=== PATIENT | female | born 1950 | race Caucasian/White ===

== ENCOUNTER 2016-11-06 21:06 | Emergency (ER) | payer MEDICARE ==
[~2016-11-06 21:06] MED LIST: ISOVUE-370 76%-LOCM 1 ML ONE
[2016-11-06 22:07] LABS: Hematocrit 34.4 % (36.0-47.0); Mean Platelet Volume 6.9 fL (7.4-10.4); Red Blood Cell (RBC) Count 3.63 mill/uL (4.20-5.40); White Blood Cell (WBC) Count 6.4 thou/uL (4.8-10.8)
[2016-11-06 22:23] LABS: Band 1 % (5-11); Neutrophil 64 % (42-75)
--- NOTE | 2016-11-06 22:23 | CT ---
CT OF THE BRAIN WITHOUT CONTRAST: 11/06/16 COMPARISON: 08/04/13. HISTORY: Altered mental status and fall. Dizziness. TECHNIQUE: Multiple contiguous axial images were obtained in a CT of the brain without contrast. FINDINGS: The brain is normal in morphology and attenuation without focal lesions or confluent areas of infarc t. There is no evidence of hydrocephalus, intracranial hemorrhage or extra-axial fluid collection. The calvarium and overlying soft tissues are unremarkable. The visualized paranasal sinuses and mast oid air cells are well aerated. IMPRESSION: No evidence of acute intracranial abnormality. POS: [facility]
[2016-11-06 22:31] LABS: ALT (SGPT) 19 U/L (8-55); AST (SGOT) 24 U/L (5-34); Alkaline Phosphatase 74 U/L (40-150); Anion Gap 12 mmol/L (10-20); BUN (Urea Nitrogen) 15 mg/dL (9.8-20.1); Bilirubin, Total 0.2 mg/dL (0.2-1.2); Calc. Creatinine Clearance 0 mL/min (70-130); Calcium 9.6 mg/dL (7.8-10.44); Carbon Dioxide 25 mmol/L (23-31); Chloride 97 mmol/L (98-107); Estimated GFR-MDRD 60; Globulin 3.1 g/dL (2.4-3.5); Protein, Total 7.3 g/dL (6.0-8.3)
[2016-11-06 22:35] LABS: Troponin I Less than 0.010 ng/mL (< 0.028)
[2016-11-06 23:00] LABS: Bilirubin Negative (Negative); Blood, Urine Small (Negative); Glucose, Urine (Dipstick) Negative (Negative); Ketone, Urine Negative (Negative); Nitrite Negative (Negative); Protein, Urine (Dipstick) 30 mg/dL (Neg-Trace); Urobilinogen 0.2 mg/dL (0.2-1.0)
[2016-11-06 23:31] LABS: Bacteria/HPF Rare-Few HPF (None Seen); Hyaline Casts/LPF 0-3 HYALINE CAST LPF (0-3 Hyaline); Squamous Epithelial 0-3 HPF (0-3); WBC/HPF 0-3 HPF (0-3)
--- NOTE | 2016-11-06 23:32 | CT ---
CTA OF THE CHEST WITH CONTRAST: 11/06/16 COMPARISON: None. HISTORY: Hypoxia. TECHNIQUE: Multiple contiguous axial images were obtained in a CTA of the chest with contrast for pulmonary emb olism protocol. 3D oblique MIP reformats and direct coronal reformats were performed. FINDINGS: The pulmonary arteries are well opacified without filling defects to suggest pulmonary emboli. The h eart is normal in size. No hilar or mediastinal lymphadenopathy are seen. Atelectasis is seen in the lung bases. No suspicious pulmonary nodules are seen. Emphysema is seen i n the lung apices. No pneumothorax or pleural effusion are seen. Degenerative changes are seen in the spine. There are benign appearing calcifications in the spleen. The other visualized subdiaphragmatic structures are unremarkable. The patient has bilateral breast implants. IMPRESSION: 1. No evidence of pulmonary thromboembolism. 2. Emphysema. POS: [facility]
== END 2016-11-07 00:42 | disposition home or self-care (01) ==
LOC: ERS 21:06
DX: R41.82 Altered mental status, unspecified (principal); I10 Essential (primary) hypertension; F41.9 Anxiety disorder, unspecified; F32.9 Major depressive disorder, single episode, unspecified; F17.210 Nicotine dependence, cigarettes, uncomplicated; W19.XXXA Unspecified fall, initial encounter
CPT/HCPCS: 36415; 36416; 70450; 71275; 80053; 80307; 81003; 81015; 82553; 84484; 85025; 85379; 93005; 94760; 96360

== ENCOUNTER 2017-02-21 14:49 | Outpatient (CLI) | payer MEDICARE | END 2017-02-21 14:50 | disposition home or self-care (01) | LOC: BICMAMMO 14:49 | PROVIDERS: ATTEND Internal Medicine | DX: N64.59 Other signs and symptoms in breast (principal); Z98.82 Breast implant status; Z80.3 Family history of malignant neoplasm of breast | CPT/HCPCS: G0204; G0279; 77066 ==

== ENCOUNTER 2018-03-24 14:35 | Outpatient (CLI) | payer MEDICARE | END 2018-03-24 14:36 | disposition home or self-care (01) | LOC: BICMAMMO 14:35 | PROVIDERS: ATTEND Family Medicine | DX: Z12.31 Encounter for screening mammogram for malignant neoplasm of breast (principal); Z80.3 Family history of malignant neoplasm of breast | CPT/HCPCS: 77063; 77067 ==

== ENCOUNTER 2019-06-23 13:06 | Outpatient (CLI) | payer MEDICARE ==
--- NOTE | 2019-06-23 14:10 | BD ---
Exam: DEXA Bone Density 06/23/19 HISTORY: Postmenopausal. Lumbar Spine: BMD (g/cm2) T-SCORE L1 0.787 -1.8 L2 0.953 -0.7 L3 0.943 -1.3 L4 0.861 -1.8 L1-L4 0.888 -1.4 Left Femoral Neck: 0.625 -2.0 Total Femur: 0.835 -0.9 Impression: Osteopenia of the lumbar spine and left femoral neck. POS: [facility]
--- NOTE | 2019-06-23 15:19 | MMO ---
Bilateral MAMMO Bilat Screen DDI+ADIN. CLINICAL HISTORY: Patient is 68 years old and is seen for screening. The patient has no personal history of cancer. The patient has a history of bilateral Implants in May, - benign. VIEWS: The views performed were: bilateral craniocaudal with tomosynthesis and bilateral mediolateral oblique with tomosynthesis. FILMS COMPARED: The present examination has been compared to prior imaging studies performed at [facility] on 12/07/2014, 12/01/2015, 02/21/2017 and 03/24/2018. This study has been interpreted with the assistance of computer-aided detection. MAMMOGRAM FINDINGS: The breasts are extremely dense, which may lower the sensitivity of mammography. There are no suspicious masses, suspicious calcifications, or new areas of architectural distortion. Bilateral implants are stable. IMPRESSION: THERE IS NO MAMMOGRAPHIC EVIDENCE OF MALIGNANCY. A ROUTINE FOLLOW-UP MAMMOGRAM IN 1 YEAR IS RECOMMENDED. THE RESULTS OF THIS EXAM WERE SENT TO THE PATIENT. ACR BI-RADS Category 1 - Negative MAMMOGRAPHY NOTE: 1. A negative mammogram report should not delay a biopsy if a dominant of clinically suspicious mass is present. 2. Approximately 10% to 15% of breast cancers are not detected by mammography. 3. Adenosis and dense breasts may obscure an underlying neoplasm. Reported by: GREGG MOORE MD Electonically Signed: [id number]
== END 2019-06-23 13:07 | disposition home or self-care (01) ==
LOC: BICMAMMO 13:06
PROVIDERS: ATTEND Family Medicine
DX: Z12.31 Encounter for screening mammogram for malignant neoplasm of breast (principal); Z13.820 Encounter for screening for osteoporosis; M85.89 Other specified disorders of bone density and structure, multiple sites; Z98.82 Breast implant status
CPT/HCPCS: 77063; 77067; 77080

== ENCOUNTER 2019-10-22 12:42 | Emergency (ER) | payer MEDICARE ==
[2019-10-22] MEDS ORDERED: Ondansetron PF 4 MG/2 ML Vial ONE (13:00)
[2019-10-22] MEDS ORDERED: Adacel (T-DAP) 0.5 ML SYRINGE ONE (13:00)
[2019-10-22] MEDS ORDERED: Acetaminophen 500 MG TAB ONE (13:00)
[2019-10-22 13:25] LABS: Bacteria/HPF None Seen HPF (None Seen); Bilirubin Negative (Negative); Blood, Urine 2+ (Negative); Clarity Clear (Clear); Glucose, Urine (Dipstick) Normal (Negative); Ketone, Urine Negative (Negative); Leukocyte Negative Leu/uL (Negative); Nitrite Negative (Negative); Protein, Urine (Dipstick) Negative (Neg-Trace); Specific Gravity, Urine 1.008 (1.002-1.036); Squamous Epithelial 0-3 HPF (0-3); Urobilinogen Normal mg/dL (Less than 2); WBC/HPF 0-3 HPF (0-3)
[2019-10-22 13:47] LABS: #Basophils 0.1 thou/uL (0.0-0.2); #Lymphocytes 1.4 thou/uL (1.20-3.40); #Monocytes 0.4 thou/uL (0.11-0.59); #Neutrophils 2.4 thou/uL (1.40-6.50); %Basophils 1.2 % (0.0-1.0); %Eosinophils 0.2 % (0.0-10.0); %Lymphocytes 32.5 % (21.0-51.0); %Neutrophils 56.2 % (42.0-75.0); Hemoglobin 12.7 g/dL (12.0-16.0); Mean Corpuscular HGB CONC 34.7 g/dL (32.0-36.0); Mean Corpuscular Hemoglobin 33.7 pg (27.0-31.0); Mean Platelet Volume 7.7 fL (7.4-10.4); Platelet Count 283 thou/uL (130-400); RBC Distribution Width 12.9 % (11.5-14.5); Red Blood Cell (RBC) Count 3.76 mill/uL (4.20-5.40); White Blood Cell (WBC) Count 4.3 thou/uL (4.8-10.8)
--- NOTE | 2019-10-22 14:04 | CT ---
CT BRAIN WITHOUT CONTRAST: Date: 10/22/2019 HISTORY: Fall with frontal laceration, headache, probable syncope. COMPARISON: 11/06/2016. FINDINGS: No evidence of acute infarct, hemorrhage, midline shift, or abnormal extra-axial fluid collections ar e seen. The ventricular size is stable and the basilar cisterns are patent. The bony calvarium is int act. The visualized paranasal sinuses and mastoid air cells are well aerated. IMPRESSION: No CT evidence of acute intracranial process. POS: [facility]
[2019-10-22 14:08] LABS: ALT (SGPT) 30 U/L (8-55); AST (SGOT) 40 U/L (5-34); Albumin 4.5 g/dL (3.4-4.8); Alkaline Phosphatase 71 U/L (40-110); Anion Gap 12 mmol/L (10-20); BUN (Urea Nitrogen) 14 mg/dL (9.8-20.1); Bilirubin, Total 0.6 mg/dL (0.2-1.2); CK (CPK) 404 U/L (29-168); Calc. Creatinine Clearance 0 mL/min (70-130); Calcium 9.3 mg/dL (7.8-10.44); Carbon Dioxide 24 mmol/L (23-31); Chloride 99 mmol/L (98-107); Estimated GFR-MDRD 73; Glucose 97 mg/dL (80-115); Magnesium 2.1 mg/dL (1.6-2.6); Potassium 4.2 mmol/L (3.5-5.1); Protein, Total 7.5 g/dL (6.0-8.3); Sodium 131 mmol/L (136-145)
== END 2019-10-22 14:48 ==
LOC: ERS 12:42
DX: S01.81XA Laceration without foreign body of other part of head, initial encounter (principal); I10 Essential (primary) hypertension; F41.9 Anxiety disorder, unspecified; F32.9 Major depressive disorder, single episode, unspecified; F17.210 Nicotine dependence, cigarettes, uncomplicated; Z79.899 Other long term (current) drug therapy; W19.XXXA Unspecified fall, initial encounter; Y92.003 Bedroom of unspecified non-institutional (private) residence as the place of occurrence of the external cause
CPT/HCPCS: 12011; 36415; 70450; 80053; 81003; 81015; 82550; 83735; 84484; 85025; 90471; 90715; 93005; 96374; J2405

== ENCOUNTER 2019-11-15 19:54 | Emergency (ER) | payer MEDICARE ==
[2019-11-15] MEDS ORDERED: Lidocaine 4% Cream 5 GM TUBE w/ Tegaderm ONE (20:26)
== END 2019-11-15 21:15 | disposition left against medical advice (07) ==
LOC: ERS 19:54
DX: S01.01XA Laceration without foreign body of scalp, initial encounter (principal); I10 Essential (primary) hypertension; F41.9 Anxiety disorder, unspecified; F32.9 Major depressive disorder, single episode, unspecified; Z79.899 Other long term (current) drug therapy; W01.0XXA Fall on same level from slipping, tripping and stumbling without subsequent striking against object, initial encounter
CPT/HCPCS: 99282

== ENCOUNTER 2020-02-09 00:27 | Observation (INO) | payer MEDICARE ==
[2020-02-09] MEDS ORDERED: Morphine 4 MG/ML VIAL ONE (01:06)
[2020-02-09] MEDS ORDERED: Ketorolac Tromethamine 30 MG/ML VIAL ONE (01:07)
[2020-02-09] MEDS ORDERED: Ondansetron PF 4 MG/2 ML Vial ONE (01:07)
[2020-02-09 01:14] LABS: Hemoglobin 11.8 g/dL (12.0-16.0); Mean Corpuscular HGB CONC 34.8 g/dL (32.0-36.0); Mean Corpuscular Hemoglobin 34.2 pg (27.0-31.0); Mean Corpuscular Volume 98.2 fL (78.0-98.0); Mean Platelet Volume 6.9 fL (7.4-10.4); Platelet Count 340 thou/uL (130-400); RBC Distribution Width 12.7 % (11.5-14.5); Red Blood Cell (RBC) Count 3.46 mill/uL (4.20-5.40); White Blood Cell (WBC) Count 3.9 thou/uL (4.8-10.8)
[2020-02-09 01:23] LABS: ALT (SGPT) 22 U/L (8-55); AST (SGOT) 48 U/L (5-34); Albumin 4.5 g/dL (3.4-4.8); Alkaline Phosphatase 67 U/L (40-110); Anion Gap 20 mmol/L (10-20); BUN (Urea Nitrogen) 13 mg/dL (9.8-20.1); Bilirubin, Total 0.4 mg/dL (0.2-1.2); Calc. Creatinine Clearance 0 mL/min (70-130); Calcium 9.6 mg/dL (7.8-10.44); Carbon Dioxide 21 mmol/L (23-31); Chloride 88 mmol/L (98-107); Globulin 2.8 g/dL (2.4-3.5); Glucose 93 mg/dL (80-115); Potassium 4.9 mmol/L (3.5-5.1); Protein, Total 7.3 g/dL (6.0-8.3); Sodium 124 mmol/L (136-145)
[2020-02-09 01:26] LABS: Alcohol 156 mg/dL (Less than 10); Salicylate Less than 8.0 mg/dL (15.0-30.0)
[2020-02-09] MEDS ORDERED: Magnesium 2 GM/50 ML BAG (IN WATER) ONE (01:39)
[2020-02-09 01:48] LABS: Bacteria/HPF None Seen HPF (None Seen); Bilirubin Negative (Negative); Blood, Urine 1+ (Negative); Clarity Clear (Clear); Glucose, Urine (Dipstick) Normal (Negative); Ketone, Urine Negative (Negative); Leukocyte Negative Leu/uL (Negative); Nitrite Negative (Negative); Protein, Urine (Dipstick) Negative (Neg-Trace); RBC/HPF 0-3 HPF (0-3); Specific Gravity, Urine 1.005 (1.002-1.036); Squamous Epithelial 0-3 HPF (0-3); Urobilinogen Normal mg/dL (Less than 2); WBC/HPF 0-3 HPF (0-3)
[2020-02-09 01:48] LABS: Band 5 % (5-11); Lymphocytes 50 % (21-51); MDiff Complete? YES; Monocytes 14 % (0-10); Neutrophil 29 % (42-75); Reactive Lymphocytes 2 % (0-10)
[2020-02-09] MEDS ORDERED: Albuterol 200 PUFF (6.7GM INHALER) ONE ×2 (01:48→02:05)
[2020-02-09] MEDS ORDERED: methylPREDNISolone Sod Succ/PF 125 MG/2 ML VIAL ONE ×2 (01:48→02:01)
[2020-02-09 01:59] LABS: Cocaine Metabolite Screen Not Detected (NotDetected); Medtox Reader # READER 1; Methamphetamine Not Detected (NotDetected); Phencyclidine (PCP) Not Detected (NotDetected); THC/Cannabinoid Screen Not Detected (NotDetected)
[2020-02-09 02:00] LABS: Amphetamine Not Detected (NotDetected); Barbiturates Screen Not Detected (NotDetected); Benzodiazepine Screen Not Detected (NotDetected); Medtox Control Line Valid? VALID (VALID); Methadone Not Detected (NotDetected); Opiate Screen Detected (NotDetected); Oxycodone Screen Not Detected (NotDetected); Tricyclic Screen Not Detected (NotDetected)
--- NOTE | 2020-02-09 03:32 | PDOC.HHP ---
Hospitalist HPI - History of Present Illness Right rib pain History of Present Illness: This is a 69-year-old female with a history of Hypertension, anxiety and depression who presents with pain on the right lateral rib cage for the past 2 weeks. Patient notes that she fell from on top of a counter and hit her right side about 2 weeks ago. Pain has gradually become worse and thus today she activated EMS and she was brought in for further evaluation. She notes intermittent cough which worsens the pain in the right side. She however denies any sputum production, fever or any other symptoms. She denies any abdominal pain diarrhea constipation dysuria or frequency. On arrival her blood pressure was 164/88, pulse 80, respiratory 20, saturation 91 on room air. CBC showed WBC of 3.9, hemoglobin 11.8, platelet 340, sodium was low at 124, urine drug screen noted opioid and alcohol level was elevated at 56. Acetaminophen was also slightly elevated at 38. Troponin was negative. 1/10 rib fracture noted on the right on chest x-ray She was given Levaquin, Solu-Medrol, ketorolac and morphine in the ED. also received a liter of normal saline Pain medication she said significantly reduced her pain from about a 9 at presentation to 9 2 at the time of my evaluation. Hospitalist ROS - Review of Systems Constitutional: denies: fever, chills, sweats Respiratory: reports: cough, dry, pleuritic pain. denies: shortness of breath, hemoptysis, SOB with excertion Cardiovascular: reports: chest pain. denies: palpitations, orthopnea Gastrointestinal: denies: nausea, vomiting, abdominal pain, diarrhea Genitourinary: denies: dysuria, frequency, incontinence, hematuria Musculoskeletal: reports: other (Right lateral rib cage pain). denies: neck pain, shoulder pain Skin: denies: rash, lesions, [place], bruising Neurological: denies: weakness, numbness, incoordination, change in speech All other systems reviewed; all pertinent +/- noted in HPI/Subj - Medication Medications: Medications: Currently refer to ambulatory [facility]. Allergies: Cefadroxil hydrate, cephalosporins Hospitalist History - Past Medical History Other Medical History: Hypertension, anxiety, depression - Past Surgical History Other Surgical History: Right hip replacements, tonsillectomy - Family History Family History: reports: diabetes mellitus - Social History Smoking Status: Current every day smoker Alcohol: reports: Occassional Drugs: reports: none Living Situation: Alone - Exam General Appearance: awake alert General - other findings: She is thin looking. Eye: PERRL, anicteric sclera ENT: normocephalic atraumatic, no oropharyngeal lesions Neck: supple, symmetric, no JVD, no thyromegaly Heart: RRR, no murmur, no gallops, no rubs Respiratory: CTAB, no wheezes, no rales, no ronchi Respiratory - other findings: No rib pain on right chest palpation. Gastrointestinal: soft, non-tender, non-distended, normal bowel sounds Extremities: no cyanosis, no clubbing, no edema Neurological: cranial nerve grossly intact, no weakness Psychiatric: normal affect, normal behavior, A&O x 3 Hospitalist Results - Labs Result Diagrams: 02/09/20 00:48 02/09/20 00:48 Lab results: WBC 3.9 thou/uL (4.8-10.8) L 02/09/20 00:48 Hgb 11.8 g/dL (12.0-16.0) L 02/09/20 00:48 Hct 33.9 % (36.0-47.0) L 02/09/20 00:48 MCV 98.2 fL (78.0-98.0) H 02/09/20 00:48 Plt Count 340 thou/uL (130-400) 02/09/20 00:48 Band Neuts % (Manual) 5 % (5-11) 02/09/20 00:48 Sodium 124 mmol/L (136-145) L 02/09/20 00:48 Potassium 4.9 mmol/L (3.5-5.1) 02/09/20 00:48 Chloride 88 mmol/L (98-107) L 02/09/20 00:48 Carbon Dioxide 21 mmol/L (23-31) L 02/09/20 00:48 BUN 13 mg/dL (9.8-20.1) 02/09/20 00:48 Creatinine 0.77 mg/dL (0.6-1.1) 02/09/20 00:48 Glucose 93 mg/dL (80-115) 02/09/20 00:48 Calcium 9.6 mg/dL (7.8-10.44) 02/09/20 00:48 Total Bilirubin 0.4 mg/dL (0.2-1.2) 02/09/20 00:48 AST 48 U/L (5-34) H 02/09/20 00:48 ALT 22 U/L (8-55) 02/09/20 00:48 Alkaline Phosphatase 67 U/L (40-110) 02/09/20 00:48 Troponin I Less than 0.010 ng/mL (< 0.028) 02/09/20 00:48 Serum Total Protein 7.3 g/dL (6.0-8.3) 02/09/20 00:48 Albumin 4.5 g/dL (3.4-4.8) 02/09/20 00:48 Urine Ketones Negative mg/dL (Negative) 02/09/20 01:43 Urine Blood 1+ (Negative) A 02/09/20 01:43 Urine Nitrite Negative (Negative) 02/09/20 01:43 Ur Leukocyte Esterase Negative Edin/uL (Negative) 02/09/20 01:43 Urine RBC 0-3 HPF (0-3) 02/09/20 01:43 Urine WBC 0-3 HPF (0-3) 02/09/20 01:43 Ur Squamous Epith Cells 0-3 HPF (0-3) 02/09/20 01:43 Urine Bacteria None Seen HPF (None Seen) 02/09/20 01:43 Hospitalist H&P A/P - Plan Plan: This is a 69-year-old female patient history of hypertension and anxiety on account of right lateral chest wall pain on account of a fall 2 weeks ago. She has a right-sided rib fracture. Right rib fracture Secondary to fall and trauma Continue on pain relief Incentive spirometry Conservative management. Hypertension Continue home blood pressure medications. Alcohol abuse Blood alcohol level was 156 at presentation She appeared slow by the time I evaluated Counseled on excessive drinking Hyponatremia This is moderate sodium at 124 We will check urine osmolality and sodium Possibilities include the episode gera, SIADH Given long history of smoking she may need screening for lung cancer If she has SIADH and urine osmolality to start fluid restriction Monitor BMP Consider nephrology consult in a.m. Leukocytosis This is mild No indication of infection along 7 urine We will hold Levaquin for now. Monitor CBC Normocytic anemia Check folic acid and B12 CODE STATUSfull code VT prophylaxisSCD
[2020-02-09 03:43] LABS: SARS-CoV-2 NAA Rapid Test Not Detected (NotDetected)
[2020-02-09 05:17] VITALS: BMI 17.4
[2020-02-09] MEDS ORDERED: hydrALAZINE 20 MG/ML VIAL SLOW IVP PRN ×2 (06:52→16:31)
[2020-02-09] MEDS ORDERED: PROVENTIL INHALER 6.7 G (200 INHALATIONS) INH PRN (07:31)
[2020-02-09] MEDS ORDERED: Ondansetron PF 4 MG/2 ML Vial IVP PRN ×2 (07:32→16:31)
[2020-02-09] MEDS ORDERED: Ondansetron ODT 4 MG TAB PO PRN (07:32)
[2020-02-09] MEDS ORDERED: Morphine 2 MG/ML VIAL SLOW IVP PRN (07:32)
[2020-02-09] MEDS ORDERED: Lactated Ringer's 1,000 ML IV SCH (07:45)
[2020-02-09 08:09] LABS: Anion Gap 17 mmol/L (10-20); BUN (Urea Nitrogen) 11 mg/dL (9.8-20.1); Calc. Creatinine Clearance 51 mL/min (70-130); Calcium 8.4 mg/dL (7.8-10.44); Carbon Dioxide 21 mmol/L (23-31); Chloride 97 mmol/L (98-107); Glucose 112 mg/dL (80-115); Potassium 4.8 mmol/L (3.5-5.1); Sodium 130 mmol/L (136-145)
--- NOTE | 2020-02-09 08:40 | RAD ---
PA AND LATERAL CHEST: HISTORY: Patient having rib pain. Fell a couple of weeks ago. FINDINGS: Heart size within normal limits. There are artherosclerotic changes of the aorta. The lungs are peng ar of any infiltrates. The lungs appear hyperexpanded. A suggestion of some deformity to the right rib cage. Right rib films would be recommended for better assessment. IMPRESSION: Questionable right-sided rib fractures. I would suggest rib films for better assessment. No pneumot horax or pleural effusion identified. POS: [facility]
[2020-02-09] MEDS: Gabapentin 300 MG CAP PO SCH ×2 (08:50→21:24)
[2020-02-09] MEDS: Lisinopril 20 MG TAB PO SCH (08:50)
[2020-02-09] MEDS: FLUoxetine HCl 20 MG CAP PO SCH (08:53)
[2020-02-09] MEDS ORDERED: Lisinopril 5 MG TAB PO SCH (09:00)
[2020-02-09] MEDS ORDERED: Aspirin 81 mg Enteric Coated Tablet PO SCH (10:15)
[2020-02-09] MEDS: Nicotine 21 MG PATCH TD SCH (11:32)
[2020-02-09] MEDS ORDERED: traMADol HCl 50 MG TAB PO PRN (12:22)
[2020-02-09] MEDS ORDERED: traMADol HCl 50 MG TAB PO SCH (12:30)
[2020-02-09] MEDS: Lidocaine 5% Patch TD SCH (13:25)
--- NOTE | 2020-02-09 14:45 | CON ---
DATE OF CONSULTATION: 02/09/2020 SERVICE: Nephrology. REASON FOR CONSULTATION: Hyponatremia. REQUESTING PHYSICIAN: Med Delcid MD HISTORY OF PRESENT ILLNESS: A 69-year-old female with known history of COPD, hypertension, who presents to the hospital with worsening right-sided lateral chest pain since about 2 weeks after she fell from the top of the counter and hit the right side of the body. Pain reportedly got worse, necessitating presentation to the ER. There was no associated nausea or vomiting, gait instability, headache, leg swelling, or abdominal pain. The patient was found to have sodium of 124, necessitating Nephrology consult. Review of medical records showed the patient has chronic hyponatremia ranging from 129 to 133 in the last several years. She admitted to alcohol use on a daily basis. Nephrology consult was requested due to hyponatremia. PAST MEDICAL HISTORY: 1. Hypertension. 2. Anxiety and depression, on Prozac. 3. COPD. 4. Chronic tobacco abuse. PAST SURGICAL HISTORY: 1. Right hip replacement. 2. Tonsillectomy. FAMILY HISTORY: Significant for diabetes mellitus in parents. SOCIAL HISTORY: Patient lives alone. She is an everyday smoker and pretty much uses alcohol every day. ALLERGIES: PATIENT REPORTS ALLERGIC REACTION TO THE FOLLOWING. CEFADROXIL. CEPHALOSPORINS. MEDICATIONS: Prior to hospital medications are as follows: 1. Aspirin 81 mg p.o. daily. 2. Gabapentin 300 mg p.o. b.i.d. 3. Lisinopril 5 mg p.o. daily. 4. Prozac 20 mg p.o. daily. 5. Trazodone 100 mg p.o. daily at bedtime. REVIEW OF SYSTEMS: 12-point review of system performed was negative other than pertinent positives and negatives included in the history of present illness. PHYSICAL EXAMINATION: VITAL SIGNS: Temperature 97.5, pulse 90, respiratory rate 20, SpO2 of 92% on room air, blood pressure is 194/97. GENERAL: Thin elderly female, in no obvious distress. Afebrile. Anicteric. Acyanotic. HEENT: Normocephalic, atraumatic. Oral mucosa is moist. NECK: Supple with no JVD. CARDIOVASCULAR: Regular rhythm and rate with normal heart sounds one and two. RESPIRATORY: Fair air entry bilaterally with some transmitted breath sounds. No obvious rhonchi or use of accessory muscles. GI: Flat, soft, nontender, nondistended with normal bowel sounds. EXTREMITIES: Grossly normal looking atraumatic with no edema or erythema. MUSCULOSKELETAL: Right lateral chest tenderness noted. FILE CLERK DATA ENTRY: Conscious, alert, oriented x3 with appropriate mental status. Cranial nerves II through XII are grossly intact. DIAGNOSTIC DATA: CBC showed WBC count of 3.9, hemoglobin of 11.8, MCV of 98.2, platelets of 340. Chemistry on presentation last night showed sodium 124, potassium 4.9, chloride 88, CO2 of 21, BUN 13, creatinine 0.77, glucose 93, calcium 9.6, total bilirubin 0.4, AST 48, ALT 22, alkaline phosphatase 67, total protein 7.3, albumin 4.5. Repeat BMP earlier this morning showed sodium 130, potassium 4.8, chloride 97, CO2 of 21, BUN 11, creatinine 0.68. Review of medical record showed that sodium ranges from 126 to 138 since 2011. Urinalysis showed clear colorless urine with pH of 5.0, specific gravity of 1.005. Protein is negative, glucose normal, ketone negative, nitrite negative, bilirubin negative, leukocyte esterase is negative. Serum osmolality is 282, while urine osmolality is 141 with urine sodium less than 20. ASSESSMENT: 1. Hyponatremia: Most likely due to poor solute intake. Patient also admitted to eating two times using mostly tea and toast meal and also admitted to drinking alcohol regularly. Patient has chronic obstructive pulmonary disease, which may lead to syndrome of inappropriate antidiuretic hormone secretion. Urine osmolality and plasma osmolality are more consistent with that of poor solute intake. 2. Hypertension: Control is suboptimal with systolic ranging from 170 to 190 this admission. 3. Right 10th rib fracture, on analgesics. PLAN: [place] solute intake advised. We will discontinue IV fluid therapy. Patient advised to cut down free water intake as well as alcohol. Increase Lisinopril to 20 mg daily to get better BP control We will recheck electrolytes in the morning. Further treatment to follow depending on hospital course. Job ID: [id number] [facility]
--- NOTE | 2020-02-09 15:19 | RAD ---
EXAM: XR Chest 1 View Portable PROVIDED CLINICAL HISTORY: Cough and vomiting COMPARISON: 02/09/2020 1255 AM FINDINGS: Cardiac and mediastinal silhouette is unchanged in appearance. The lungs remain hyperinflated. There is a minimally displaced right lateral seventh rib fracture. Additional rib fractures may be present, less well visualized, involving the more inferior lateral ribs. Blunting of the right costop hrenic angle could reflect pleural fluid. There is no evidence for pneumothorax. No focal consolidation is evident. IMPRESSION: Right-sided rib fracture/fractures with possible right pleural fluid.
[2020-02-09 15:56] LABS: #Lymphocytes 0.3 thou/uL (1.20-3.40); #Monocytes 0.2 thou/uL (0.11-0.59); #Neutrophils 2.1 thou/uL (1.40-6.50); %Eosinophils 0.1 % (0.0-10.0); %Lymphocytes 12.5 % (21.0-51.0); %Monocytes 5.8 % (0.0-10.0); %Neutrophils 81.6 % (42.0-75.0); Hemoglobin 11.6 g/dL (12.0-16.0); Mean Corpuscular HGB CONC 34.1 g/dL (32.0-36.0); Mean Corpuscular Hemoglobin 33.3 pg (27.0-31.0); Mean Corpuscular Volume 97.8 fL (78.0-98.0); Mean Platelet Volume 7.2 fL (7.4-10.4); Platelet Count 327 thou/uL (130-400); RBC Distribution Width 12.7 % (11.5-14.5); Red Blood Cell (RBC) Count 3.48 mill/uL (4.20-5.40); White Blood Cell (WBC) Count 2.6 thou/uL (4.8-10.8)
[2020-02-09] MEDS ORDERED: Ketorolac Tromethamine 30 MG/ML VIAL IVP PRN (16:29)
[2020-02-09] MEDS ORDERED: Promethazine HCl 25 MG/ML VIAL IM/IV PRN (16:31)
[2020-02-09] MEDS ORDERED: Ketorolac Tromethamine 30 MG/ML VIAL IVP SCH (17:00)
[2020-02-09] MEDS ORDERED: Promethazine HCl 25 MG in Sodium Chloride 0.9% 50 ML IVPB PRN (19:03)
[2020-02-09] MEDS ORDERED: traZODone HCl 50 MG TAB PO SCH (21:00)
[2020-02-09] MEDS ORDERED: Non-Formulary Item 1 EACH (Trazodone Hcl [Trazodone Hcl] 100 MG Tablet) PO SCH (21:00)
[2020-02-09] MEDS ORDERED: Lidocaine Patch Removal 1 EACH TOP SCH (23:59)
[2020-02-10 06:41] LABS: Hemoglobin 10.7 g/dL (12.0-16.0); Mean Corpuscular HGB CONC 33.4 g/dL (32.0-36.0); Mean Corpuscular Hemoglobin 33.1 pg (27.0-31.0); Mean Corpuscular Volume 98.9 fL (78.0-98.0); Mean Platelet Volume 7.3 fL (7.4-10.4); Platelet Count 294 thou/uL (130-400); RBC Distribution Width 12.9 % (11.5-14.5); Red Blood Cell (RBC) Count 3.24 mill/uL (4.20-5.40); White Blood Cell (WBC) Count 5.2 thou/uL (4.8-10.8)
[2020-02-10 06:52] LABS: Anion Gap 13 mmol/L (10-20); BUN (Urea Nitrogen) 15 mg/dL (9.8-20.1); Calc. Creatinine Clearance 44 mL/min (70-130); Calcium 9.1 mg/dL (7.8-10.44); Carbon Dioxide 29 mmol/L (23-31); Chloride 92 mmol/L (98-107); Glucose 109 mg/dL (80-115); Sodium 130 mmol/L (136-145)
[2020-02-10] MEDS: FLUoxetine HCl 20 MG CAP PO SCH (08:47)
[2020-02-10] MEDS: Gabapentin 300 MG CAP PO SCH (08:47)
[2020-02-10] MEDS: Lisinopril 20 MG TAB PO SCH (08:47)
[2020-02-10] MEDS ORDERED: Aspirin 81 mg Enteric Coated Tablet PO SCH (09:00)
[2020-02-10 10:13] LABS: Band 11 % (5-11); Lymphocytes 21 % (21-51); MDiff Complete? YES; Monocytes 18 % (0-10); Neutrophil 49 % (42-75); Platelet Morphology Comment Appears Adequate; Polychromasia SLIGHT = 2-3 cells (100X) (0-2/hpf); Reactive Lymphocytes 1 % (0-10)
--- NOTE | 2020-02-10 10:15 | PDOC.DS.DS ---
Provider - Provider Date of Admission: 02/09/20 02:14 Date of Discharge: 02/10/20 Admitting Provider: Med Delcid MD Consultations: Nephrology (Dr. Castillo) Primary Care Physician: Lul Maria MD Course - Hospital Course Hospital Course: Discharge diagnosis: 1. Rib fracture 2. Alcohol abuse 3. Hyponatremia Hospital course: Patient is a pleasant 69-year-old lady who was admitted to the hospital on February 09, 2020 for right-sided chest pain secondary to rib fracture following a fall. She received pain medications with improvement in her pain. She was also hyponatremic at the time of admission and was seen by nephrology service. Her lisinopril dose was increased to 20 mg daily. She was advised liberal s olute intake. She is being discharged home in a stable condition. Many thanks for allowing me to participate in your patient's care. Please feel free to contact me with any questions or concerns. Discharge destination: Home Resuscitation Status: 02/09/20 03:20 Resuscitation Status Routine Resuscitation Status: FULL: Full Resuscitation - Labs Lab Results: 02/10/20 06:11 02/10/20 06:00 Abnormal Lab Results - Last 48 hrs 02/09/20 00:48: Sodium 124 L, Chloride 88 L, Carbon Dioxide 21 L, AST 48 H 02/09/20 00:48: WBC 3.9 L, RBC 3.46 L, Hgb 11.8 L, Hct 33.9 L, MCV 98.2 H, MCH 34.2 H, MPV 6.9 L, Neutrophils % (Manual) 29 L, Monocytes % (Manual) 14 H 02/09/20 00:48: Salicylates Less than 8.0 L, Acetaminophen 38.0 H, Plasma Alcohol 156 H 02/09/20 01:43: Urine Blood 1+ A 02/09/20 01:43: Urine Opiates Screen Detected H 02/09/20 01:43: Urine Osmolality 141 L 02/09/20 05:41: Vitamin B12 915 H 02/09/20 07:30: Sodium 130 L, Chloride 97 L, Carbon Dioxide 21 L 02/09/20 15:34: WBC 2.6 L, RBC 3.48 L, Hgb 11.6 L, Hct 34.1 L, MCH 33.3 H, MPV 7.2 L, Neutrophils % 81.6 H, Lymphocytes % 12.5 L, Lymphocytes # 0.3 L 02/10/20 06:00: Sodium 130 L, Chloride 92 L 02/10/20 06:11: RBC 3.24 L, Hgb 10.7 L, Hct 32.1 L, MCV 98.9 H, MCH 33.1 H, MPV 7.3 L, Monocytes % (Manual) 18 H - Physical Exam Vitals: Vital Signs (12 hours) Temp Pulse Resp BP Pulse Ox 02/10/20 07:38 98.6 F 78 18 132/61 92 L 02/10/20 04:00 97.5 F L 75 16 111/64 92 L 02/10/20 00:00 97.9 F 77 16 121/66 92 L Weight Weight 92 lb 5.979 oz Physical Exam: The patient was seen and examined on the day of discharge. Patient denies chest pain or shortness of breath. Vital signs are stable. S1 and S2 are heard. Lungs are clear to auscultation bilaterally. Plan - Discharge Medications Prescriptions: Lisinopril 20 mg PO DAILY #30 tablet Thiamine 100 mg PO DAILY #30 tab Home Medications: Medication Instructions Recorded Confirmed Type Aspirin [Ecotrin Low Strength] 81 mg PO DAILY 02/09/20 02/09/20 History FLUoxetine HCl [Prozac] 20 mg PO DAILY 02/09/20 02/09/20 History Gabapentin 300 mg PO BID 02/09/20 02/09/20 History Nicotine [Nicoderm CQ] 21 mg TD Q24H patch 02/09/20 Rx traZODone HCl [Trazodone HCl] 100 mg PO HS 02/09/20 02/09/20 History Lisinopril 20 mg PO DAILY #30 tablet 02/10/20 Rx Thiamine 100 mg PO DAILY #30 tab 02/10/20 Rx Allergies: cefadroxil hydrate [From Duricef] Allergy (Verified 02/09/20 05:01) Cephalosporins Allergy (Verified 02/09/20 05:01) - Discharge Instructions Discharge Instructions:: Check your blood pressure and heart rate 3 times a day and shows readings to your primary care provider. Avoid alcohol use. - Follow up Plan Referrals: Lul Maria MD [Primary Care Provider] - 1 Day Sandhya Castillo MD [Active] - 02/23/20 10:00 am Disposition: HOME
--- NOTE | 2020-02-10 10:37 | PDOC.NEPPN ---
- Subjective Encounter Date: 02/10/20 Subjective: Seen in follow up for Hyponatremia. Still having right lateral chest pain. No fever, nausea or vomiting. - Objective Vital Signs & Weight: Vital Signs (12 hours) Temp Pulse Resp BP Pulse Ox 02/10/20 07:38 98.6 F 78 18 132/61 92 L 02/10/20 04:00 97.5 F L 75 16 111/64 92 L 02/10/20 00:00 97.9 F 77 16 121/66 92 L Weight Weight 92 lb 5.979 oz I&O: 02/09/20 02/10/20 02/11/20 06:59 06:59 06:59 Intake Total 760 Output Total 250 Balance 510 Result Diagrams: 02/10/20 06:11 02/10/20 06:00 Nephrology ROS - Medication Medications: Active Medications Generic Name Dose Route Start Last Admin Trade Name Freq PRN Reason Stop Dose Admin Aspirin 81 mg 02/10/20 09:00 02/10/20 08:47 Aspirin 81 Mg Enteric Coated Tablet PO 81 mg DAILY BARRIE Administration Fluoxetine HCl 20 mg 02/09/20 09:00 02/10/20 08:47 Fluoxetine Hcl 20 Mg Cap PO 20 mg DAILY BARRIE Administration Gabapentin 300 mg 02/09/20 09:00 02/10/20 08:47 Gabapentin 300 Mg Cap PO 300 mg BID BARRIE Administration Hydralazine HCl 10 mg 02/09/20 16:31 02/09/20 17:36 Hydralazine 20 Mg/Ml Vial SLOW IVP 10 mg Q6H PRN Administration SBP Greater Than 170 Promethazine HCl 25 mg/ Sodium 51 mls @ 204 mls/hr 02/09/20 19:03 02/09/20 21:03 Chloride IVPB 51 mls Q6H PRN Administration Nausea Ketorolac Tromethamine 15 mg 02/09/20 16:29 02/10/20 06:35 Ketorolac Tromethamine 30 Mg/Ml Vial IVP 02/14/20 16:30 15 mg Q8H PRN Administration Severe Pain (7-10) Lidocaine 1 patch 02/09/20 12:00 02/09/20 13:25 Lidocaine 5% Patch TD Not Given Q24HR BARRIE Lisinopril 20 mg 02/09/20 09:00 02/10/20 08:47 Lisinopril 20 Mg Tab PO 20 mg DAILY BARRIE Administration Miscellaneous Medication 1 each 02/09/20 23:59 02/10/20 05:44 Lidocaine Patch Removal 1 Each TOP Not Given Q24HR BARRIE Nicotine 21 mg 02/09/20 11:00 02/09/20 11:32 Nicotine 21 Mg Patch TD 21 mg Q24H BARRIE Administration Sodium Chloride 10 ml 02/09/20 09:00 02/10/20 08:48 Flush - Normal Saline 10 Ml Syringe IVF 10 ml Q12HR BARRIE Administration Sodium Chloride 10 ml 02/09/20 09:00 02/10/20 08:49 Flush - Normal Saline 10 Ml Syringe IVF Not Given Q12HR BARRIE Trazodone HCl 100 mg 02/09/20 21:00 02/09/20 21:23 Trazodone Hcl 50 Mg Tab PO 100 mg HS BARRIE Administration - Exam General Appearance: awake alert Eye: anicteric sclera ENT: normocephalic atraumatic Neck: supple, symmetric, no JVD Respiratory - other findings: fair air entry with scattered transmitted sound bilaterally Cardiovascular: RRR Gastrointestinal: soft, non-tender, non-distended, normal bowel sounds Extremities: no cyanosis, no edema Neurological: CN's grossly intact, no focal deficits PSYCH: A&O x 3 Nephrology Results - Labs Result Diagrams: 02/10/20 06:11 02/10/20 06:00 Lab results: WBC 5.2 thou/uL (4.8-10.8) 02/10/20 06:11 Hgb 10.7 g/dL (12.0-16.0) L 02/10/20 06:11 Hct 32.1 % (36.0-47.0) L 02/10/20 06:11 MCV 98.9 fL (78.0-98.0) H 02/10/20 06:11 Plt Count 294 thou/uL (130-400) 02/10/20 06:11 Neutrophils % 81.6 % (42.0-75.0) H 02/09/20 15:34 Band Neuts % (Manual) 11 % (5-11) 02/10/20 06:11 Sodium 130 mmol/L (136-145) L 02/10/20 06:00 Potassium 4.0 mmol/L (3.5-5.1) 02/10/20 06:00 Chloride 92 mmol/L (98-107) L 02/10/20 06:00 Carbon Dioxide 29 mmol/L (23-31) 02/10/20 06:00 BUN 15 mg/dL (9.8-20.1) 02/10/20 06:00 Creatinine 0.78 mg/dL (0.6-1.1) 02/10/20 06:00 Glucose 109 mg/dL (80-115) 02/10/20 06:00 Calcium 9.1 mg/dL (7.8-10.44) 02/10/20 06:00 Total Bilirubin 0.4 mg/dL (0.2-1.2) 02/09/20 00:48 AST 48 U/L (5-34) H 02/09/20 00:48 ALT 22 U/L (8-55) 02/09/20 00:48 Alkaline Phosphatase 67 U/L (40-110) 02/09/20 00:48 Troponin I Less than 0.010 ng/mL (< 0.028) 02/09/20 00:48 Serum Total Protein 7.3 g/dL (6.0-8.3) 02/09/20 00:48 Albumin 4.5 g/dL (3.4-4.8) 02/09/20 00:48 Urine Ketones Negative mg/dL (Negative) 02/09/20 01:43 Urine Blood 1+ (Negative) A 02/09/20 01:43 Urine Nitrite Negative (Negative) 02/09/20 01:43 Ur Leukocyte Esterase Negative Edin/uL (Negative) 02/09/20 01:43 Urine RBC 0-3 HPF (0-3) 02/09/20 01:43 Urine WBC 0-3 HPF (0-3) 02/09/20 01:43 Ur Squamous Epith Cells 0-3 HPF (0-3) 02/09/20 01:43 Urine Bacteria None Seen HPF (None Seen) 02/09/20 01:43 Sodium 130 mmol/L (136-145) L 02/10/20 06:00 Potassium 4.0 mmol/L (3.5-5.1) 02/10/20 06:00 Chloride 92 mmol/L (98-107) L 02/10/20 06:00 Carbon Dioxide 29 mmol/L (23-31) 02/10/20 06:00 Anion Gap 13 mmol/L (10-20) 02/10/20 06:00 BUN 15 mg/dL (9.8-20.1) 02/10/20 06:00 Creatinine 0.78 mg/dL (0.6-1.1) 02/10/20 06:00 Glucose 109 mg/dL (80-115) 02/10/20 06:00 Calcium 9.1 mg/dL (7.8-10.44) 02/10/20 06:00 Albumin 4.5 g/dL (3.4-4.8) 02/09/20 00:48 Nephrology AP PN - Plan ASSESSMENT Hyponatremia: Due to poor solute intake with some contribution from alcohol and excessive free water intake. Urine and plasma osmolality are consistent. Hypertension: Control is acceptable with increase in lisinopril to 20 daily. Right 10th rib fracture, on analgesics. PLAN Continue liberal solute intake including proteins and salt. Reduce fluid and alcohol intake. can be discharged from Nephrology point of view. Outpatient follow up on 02/23/2020 scheduled with repeat BMP Call for any clarification.
[2020-02-10] MEDS: Lidocaine 5% Patch TD SCH (12:35)
[2020-02-10] MEDS: Nicotine 21 MG PATCH TD SCH (12:35)
[2020-02-10 16:36] VITALS: BP 139/73; TEMP 97.9
== END 2020-02-10 13:43 | disposition home or self-care (01) ==
LOC: ERS 00:27 → T4-A 02:14
PROVIDERS: ADMIT Student in an Organized Health Care Education/Training Program; ATTEND Internal Medicine
DX: S22.31XA Fracture of one rib, right side, initial encounter for closed fracture (principal); F10.10 Alcohol abuse, uncomplicated; E87.1 Hypo-osmolality and hyponatremia; I10 Essential (primary) hypertension; F41.9 Anxiety disorder, unspecified; F32.9 Major depressive disorder, single episode, unspecified; D64.9 Anemia, unspecified; D72.829 Elevated white blood cell count, unspecified; J44.9 Chronic obstructive pulmonary disease, unspecified; F17.200 Nicotine dependence, unspecified, uncomplicated; Z79.82 Long term (current) use of aspirin; Z79.899 Other long term (current) drug therapy; Z88.1 Allergy status to other antibiotic agents; W17.89XA Other fall from one level to another, initial encounter
CPT/HCPCS: 0240U; 71045; 71046; 80048 ×2; 80053; 80306; 80307; 82607; 82746; 82962; 83930; 83935; 84300; 84484; 85025 ×3; 93005; 96365; 96375; 99285; J2270; 36415; 36416; 81003; 81015; 96376; G0378; J0360; J1885; J2405; J2550; J2930; J3475

== ENCOUNTER 2020-02-16 21:37 | Emergency (ER) | payer MEDICARE | END 2020-02-16 22:33 | disposition home or self-care (01) | LOC: ERS 21:37 | DX: F10.129 Alcohol abuse with intoxication, unspecified (principal); I10 Essential (primary) hypertension; F17.210 Nicotine dependence, cigarettes, uncomplicated | CPT/HCPCS: 99281 ==

== ENCOUNTER 2020-02-22 00:18 | Inpatient (IN) | payer MEDICARE ==
[2020-02-22 01:32] LABS: ALT (SGPT) 21 U/L (8-55); AST (SGOT) 48 U/L (5-34); Albumin 4.2 g/dL (3.4-4.8); Alcohol 299 mg/dL (Less than 10); Alkaline Phosphatase 53 U/L (40-110); Anion Gap 18 mmol/L (10-20); BUN (Urea Nitrogen) 8 mg/dL (9.8-20.1); Bilirubin, Total 0.5 mg/dL (0.2-1.2); Calc. Creatinine Clearance 0 mL/min (70-130); Calcium 8.4 mg/dL (7.8-10.44); Carbon Dioxide 20 mmol/L (23-31); Chloride 86 mmol/L (98-107); Globulin 2.6 g/dL (2.4-3.5); Glucose 84 mg/dL (80-115); Potassium 4.4 mmol/L (3.5-5.1); Protein, Total 6.8 g/dL (6.0-8.3); Sodium 120 mmol/L (136-145)
[2020-02-22] MEDS ORDERED: Acetaminophen 500 MG TAB ONE (01:50)
[2020-02-22 02:37] LABS: Bacteria/HPF None Seen HPF (None Seen); Squamous Epithelial 0-3 HPF (0-3); WBC/HPF None Seen HPF (0-3)
[2020-02-22 02:38] LABS: Bilirubin Negative (Negative); Blood, Urine 1+ (Negative); Clarity Clear (Clear); Glucose, Urine (Dipstick) Normal (Negative); Ketone, Urine Negative (Negative); Leukocyte Negative Leu/uL (Negative); Nitrite Negative (Negative); Protein, Urine (Dipstick) Negative (Neg-Trace); Specific Gravity, Urine 1.009 (1.002-1.036); Urobilinogen Normal mg/dL (Less than 2)
[2020-02-22 02:40] LABS: Amphetamine Not Detected (NotDetected); Barbiturates Screen Not Detected (NotDetected); Benzodiazepine Screen Not Detected (NotDetected); Cocaine Metabolite Screen Not Detected (NotDetected); Medtox Control Line Valid? VALID (VALID); Medtox Reader # READER 4; Methadone Not Detected (NotDetected); Methamphetamine Not Detected (NotDetected); Opiate Screen Not Detected (NotDetected); Oxycodone Screen Not Detected (NotDetected); Phencyclidine (PCP) Not Detected (NotDetected); RBC/HPF 0-3 HPF (0-3); THC/Cannabinoid Screen Not Detected (NotDetected); Tricyclic Screen Not Detected (NotDetected)
[2020-02-22] MEDS ORDERED: Ondansetron ODT 4 MG TAB SL PRN ×2 (03:45→15:16)
[2020-02-22] MEDS ORDERED: Acetaminophen 325 MG TAB PO PRN (03:45)
[2020-02-22] MEDS ORDERED: Ondansetron PF 4 MG/2 ML Vial IVP PRN ×2 (03:45→15:16)
[2020-02-22 04:08] VITALS: BMI 17.7
--- NOTE | 2020-02-22 04:14 | PDOC.HHP ---
Hospitalist HPI - History of Present Illness Weakness, nausea and vomiting History of Present Illness: This is a 69-year-old female patient with a history of alcoholism, hypertension and right-sided rib fractures who presented today by EMS on account of nausea vomiting and general malaise. She notes that she has been drinking a lot less likely led to her feeling bad. Of note she was admitted just over a week ago for similar conditions. She denied any headache fevers chest pain cough but has been having intermittent shortness of breath. She notes this may be because she smokes. There is no increased cough beyond her baseline. She denies any associated abdominal pain diarrhea constipation dysuria frequency. At presentation blood pressures were 164/82, pulse 75, respiratory rate 16, saturating 96 on room air. Her labs showed anemia of 10.7, and hyponatremia of 120. On her last visits over a week ago her sodium was 130. She was given Tylenol and 1 L normal saline in the ED. Hospitalist team consulted for admission. Hospitalist ROS - Review of Systems Constitutional: reports: malaise. denies: fever, chills, weakness Respiratory: reports: cough, SOB with excertion. denies: shortness of breath, hemoptysis Cardiovascular: denies: chest pain, palpitations, orthopnea, paroxysmal noc. dyspnea Gastrointestinal: reports: nausea, vomiting. denies: abdominal pain, diarrhea Genitourinary: denies: dysuria, frequency, incontinence Musculoskeletal: denies: neck pain, shoulder pain, arm pain, back pain Neurological: reports: incoordination. denies: weakness, numbness, change in speech, confusion All other systems reviewed; all pertinent +/- noted in HPI/Subj - Medication Medications: Medications: Currently refer to ambulatory orders. Allergies: Cefadroxil, cephalosporins. Hospitalist History - Past Medical History Other Medical History: Alcohol abuse, hypertension, depression, anxiety - Past Surgical History Other Surgical History: Right hip surgery, tonsillectomy - Family History Family History: reports: no pertinent history - Social History Smoking Status: Current every day smoker Alcohol: reports: Occassional, Heavy Drugs: reports: none Living Situation: Alone - Exam General Appearance: awake alert, ill appearing General - other findings: Slightly drowsy. Eye: PERRL, anicteric sclera ENT: normocephalic atraumatic, no oropharyngeal lesions Heart: RRR, no murmur, no gallops, no rubs Respiratory: CTAB, no wheezes, no rales, no ronchi Gastrointestinal: soft, non-tender, non-distended, normal bowel sounds Extremities: no cyanosis, no clubbing, no edema Neurological: cranial nerve grossly intact Neurological - other findings: Patient staggers and walking. Intoxicated gait. Musculoskeletal: normal tone Musculoskeletal - other findings: Pain on right lower rib cage palpation Psychiatric: normal affect, A&O x 3 Hospitalist Results - Labs Result Diagrams: 02/22/20 00:59 Lab results: Sodium 120 mmol/L (136-145) L 02/22/20 00:59 Potassium 4.4 mmol/L (3.5-5.1) 02/22/20 00:59 Chloride 86 mmol/L (98-107) L 02/22/20 00:59 Carbon Dioxide 20 mmol/L (23-31) L 02/22/20 00:59 BUN 8 mg/dL (9.8-20.1) L 02/22/20 00:59 Creatinine 0.67 mg/dL (0.6-1.1) 02/22/20 00:59 Glucose 84 mg/dL (80-115) 02/22/20 00:59 Calcium 8.4 mg/dL (7.8-10.44) 02/22/20 00:59 Total Bilirubin 0.5 mg/dL (0.2-1.2) 02/22/20 00:59 AST 48 U/L (5-34) H 02/22/20 00:59 ALT 21 U/L (8-55) 02/22/20 00:59 Alkaline Phosphatase 53 U/L (40-110) 02/22/20 00:59 Serum Total Protein 6.8 g/dL (6.0-8.3) 02/22/20 00:59 Albumin 4.2 g/dL (3.4-4.8) 02/22/20 00:59 Urine Ketones Negative mg/dL (Negative) 02/22/20 01:57 Urine Blood 1+ (Negative) A 02/22/20 01:57 Urine Nitrite Negative (Negative) 02/22/20 01:57 Ur Leukocyte Esterase Negative Edin/uL (Negative) 02/22/20 01:57 Urine RBC 0-3 HPF (0-3) 02/22/20 01:57 Urine WBC None Seen HPF (0-3) 02/22/20 01:57 Ur Squamous Epith Cells 0-3 HPF (0-3) 02/22/20 01:57 Urine Bacteria None Seen HPF (None Seen) 02/22/20 01:57 Hospitalist H&P A/P - Plan Plan: This is a 69-year-old female patient with a history of alcoholism, anxiety dep ression and hypertension who presents with nausea vomiting general malaise with severe hyponatremia secondary to alcohol intoxication. Profound hyponatremia Sodium at 120 from a baseline of 130. Likely secondary to acute alcohol intoxication possibly hypoosmolar hyponatremia. Likely acute She takes fluoxetine which could also precipitate SIADH We will check urine osmolality and sodium Received 1 L normal saline. Will hold hydration BMP every 4 Consult nephrology. Alcohol intoxication Patient currently stable We will monitor her for gradual weaning of intoxication She will need counseling. Call for alcohol withdrawal later. Hypertension Resume home BP medications once verified. Anxiety/depression Continue trazodone Hold fluoxetine on account of possible SIADH Appreciate nephrology input CODE STATUSfull code VTE prophylaxisLovenox
[2020-02-22] MEDS: Gabapentin 300 MG CAP PO SCH ×2 (08:21→20:04)
[2020-02-22] MEDS: Enoxaparin Sodium 40 MG/0.4 ML SYRINGE SC SCH (08:22)
[2020-02-22] MEDS: Aspirin 81 mg Enteric Coated Tablet PO SCH (08:22)
[2020-02-22] MEDS ORDERED: Thiamine 100 MG TAB PO SCH (09:00)
[2020-02-22 09:11] LABS: SARS-CoV-2 MS2 Positive; SARS-CoV-2 N Gene Negative; SARS-CoV-2 S Gene Negative; SARS-CoV-2 by NAA Not Detected (NotDetected); SARS-CoV-2 orf1ab Negative
[2020-02-22] MEDS ORDERED: FLUoxetine HCl 20 MG CAP PO SCH (11:30)
[2020-02-22] MEDS ORDERED: Diazepam 5 MG TAB PO PRN (12:01)
[2020-02-22] MEDS ORDERED: Diazepam 5 MG TAB PO SCH (12:15)
[2020-02-22] MEDS ORDERED: Thiamine HCl 200 MG/2 ML VIAL IM SCH (12:15)
--- NOTE | 2020-02-22 12:35 | RAD ---
RIGHT HIP 2 VIEWS: HISTORY: Right hip pain. FINDINGS: Comparison is made with the exam of 07/14/2019. Postop changes of total right hip arthroplasty are again seen in good position and alignment. No dis location is seen. There is a linear lucency noted in the proximal femur which is not definitely seen on the previous exam and is suspicious for a nondisplaced fracture. POS: AH
--- NOTE | 2020-02-22 12:37 | RAD ---
AP PELVIS: HISTORY: Right hip pain. FINDINGS/IMPRESSION: There are postop changes of right hip arthroplasty in good position and alignment. There is a lucenc y in the lateral aspect of the proximal right femur suspicious for a nondisplaced fracture. POS: AH
[2020-02-22 12:40] LABS: Anion Gap 17 mmol/L (10-20); BUN (Urea Nitrogen) 9 mg/dL (9.8-20.1); Calc. Creatinine Clearance 50 mL/min (70-130); Calcium 9.3 mg/dL (7.8-10.44); Carbon Dioxide 24 mmol/L (23-31); Chloride 95 mmol/L (98-107); Glucose 98 mg/dL (80-115); Potassium 4.3 mmol/L (3.5-5.1); Sodium 132 mmol/L (136-145)
--- NOTE | 2020-02-22 14:10 | PDOC.EVN ---
Event Note - Event Note Event Note: Patient seen and examined. Now that alcohol wearing off patient reporting right hip pain. Was able to ambulate but painful. Reports a fall when drunk last night. TTP over the greater trochanter. Full ROM. X-ray ordered and with non- displaced proximal femur fracture. Strict bed rest and will ask ortho to see. Also started on ASE protocol.
--- NOTE | 2020-02-22 16:02 | PDOC.NEPPN ---
- Subjective Encounter Date: 02/22/20 Subjective: 69 y/o female with chronic alcohol abuse and hyponatremia thought to be due to poor solute intake recently discharged from this hospital now readmitted due to nausea and vomiting associated with worsening weakness, malaise and fall . Patient reported right hip pain since after a recent fall and was found to have right femoral fracture on Xray. Had rib fractures during prior hospitalization. Noted to have elevated plasma alcohol levels as well as hyponatremia with sodium of 120 on presentation. Was felt to be dehydration and treated with 1L bolus of normal saline. Repeat BMP showed sodium of 132. Remained neurologically stable. Denied headache, confusion, or leg swelling. No further vomiting since hospitalization and patient is tolerating oral intake. - Objective Vital Signs & Weight: Vital Signs (12 hours) Temp Pulse Resp BP Pulse Ox 02/22/20 11:32 98.5 F 90 20 160/80 H 95 02/22/20 08:00 98.1 F 88 18 160/77 H 88 L 02/22/20 04:51 95 Weight Weight 94 lb I&O: 02/21/20 02/22/20 02/23/20 06:59 06:59 06:59 Intake Total 100 Balance 100 Result Diagrams: 02/22/20 11:58 Nephrology ROS - Medication Medications: Active Medications Generic Name Dose Route Start Last Admin Trade Name Mallika PRN Reason Stop Dose Admin Aspirin 81 mg 02/22/20 09:00 02/22/20 08:22 Aspirin 81 Mg Enteric Coated Tablet PO 81 mg DAILY BARRIE Administration Enoxaparin Sodium 40 mg 02/22/20 09:00 02/22/20 08:22 Enoxaparin Sodium 40 Mg/0.4 Ml Syringe SC 40 mg 0900 BARRIE Administration Gabapentin 300 mg 02/22/20 09:00 02/22/20 08:21 Gabapentin 300 Mg Cap PO 300 mg BID BARRIE Administration - Exam General Appearance: awake alert General - other findings: frail and thin Eye: anicteric sclera ENT: normocephalic atraumatic, moist mucosa Neck: symmetric, no JVD Respiratory: no wheezes, no ronchi, no tachypnea Respiratory - other findings: fair air entry bilaterally with some transmitted sound but no crackles Cardiovascular: RRR Gastrointestinal: soft, non-distended, normal bowel sounds Extremities: no edema Neurological: CN's grossly intact, no focal deficits Neurological - other findings: fine tremors noted Musculoskeletal: generalized weakness, diffuse muscle atrophy PSYCH: A&O x 3 Nephrology Results - Labs Result Diagrams: 02/22/20 11:58 Lab results: Sodium 132 mmol/L (136-145) L 02/22/20 11:58 Potassium 4.3 mmol/L (3.5-5.1) 02/22/20 11:58 Chloride 95 mmol/L (98-107) L 02/22/20 11:58 Carbon Dioxide 24 mmol/L (23-31) 02/22/20 11:58 BUN 9 mg/dL (9.8-20.1) L 02/22/20 11:58 Creatinine 0.71 mg/dL (0.6-1.1) 02/22/20 11:58 Glucose 98 mg/dL (80-115) 02/22/20 11:58 Calcium 9.3 mg/dL (7.8-10.44) 02/22/20 11:58 Total Bilirubin 0.5 mg/dL (0.2-1.2) 02/22/20 00:59 AST 48 U/L (5-34) H 02/22/20 00:59 ALT 21 U/L (8-55) 02/22/20 00:59 Alkaline Phosphatase 53 U/L (40-110) 02/22/20 00:59 Serum Total Protein 6.8 g/dL (6.0-8.3) 02/22/20 00:59 Albumin 4.2 g/dL (3.4-4.8) 02/22/20 00:59 Urine Ketones Negative mg/dL (Negative) 02/22/20 01:57 Urine Blood 1+ (Negative) A 02/22/20 01:57 Urine Nitrite Negative (Negative) 02/22/20 01:57 Ur Leukocyte Esterase Negative Edin/uL (Negative) 02/22/20 01:57 Urine RBC 0-3 HPF (0-3) 02/22/20 01:57 Urine WBC None Seen HPF (0-3) 02/22/20 01:57 Ur Squamous Epith Cells 0-3 HPF (0-3) 02/22/20 01:57 Urine Bacteria None Seen HPF (None Seen) 02/22/20 01:57 Sodium 132 mmol/L (136-145) L 02/22/20 11:58 Potassium 4.3 mmol/L (3.5-5.1) 02/22/20 11:58 Chloride 95 mmol/L (98-107) L 02/22/20 11:58 Carbon Dioxide 24 mmol/L (23-31) 02/22/20 11:58 Anion Gap 17 mmol/L (10-20) 02/22/20 11:58 BUN 9 mg/dL (9.8-20.1) L 02/22/20 11:58 Creatinine 0.71 mg/dL (0.6-1.1) 02/22/20 11:58 Glucose 98 mg/dL (80-115) 02/22/20 11:58 Calcium 9.3 mg/dL (7.8-10.44) 02/22/20 11:58 Albumin 4.2 g/dL (3.4-4.8) 02/22/20 00:59 Nephrology AP PN - Plan Hyponatremia: Due to poor solute intake and alcohol abuse. Despite sodium of 120, plasma osmolality is 302 with urine osmolality of 155. Alohol level was 299. Given chronicity of hyponatremia though with acute component, as well as chronic alcohol abuse, patient is at increased risk of ODS if sodium is corrected too fast as is going. We will start dextrose infusion and follow sodium levels. Right femoral fracture Chronic alcohol use with acute intoxication. [place] solute intake advise.
[2020-02-22] MEDS: Acetaminophen 325 MG TAB PO PRN ×2 (16:10→20:19)
[2020-02-22 17:06] LABS: Anion Gap 15 mmol/L (10-20); BUN (Urea Nitrogen) 11 mg/dL (9.8-20.1); Calc. Creatinine Clearance 50 mL/min (70-130); Calcium 8.9 mg/dL (7.8-10.44); Carbon Dioxide 25 mmol/L (23-31); Chloride 95 mmol/L (98-107); Glucose 122 mg/dL (80-115); Potassium 4.3 mmol/L (3.5-5.1); Sodium 131 mmol/L (136-145)
[2020-02-22] MEDS: Dextrose 5% in Water 1,000 ML IV SCH (19:23)
[2020-02-22 20:02] LABS: Anion Gap 15 mmol/L (10-20); BUN (Urea Nitrogen) 11 mg/dL (9.8-20.1); Calc. Creatinine Clearance 47 mL/min (70-130); Calcium 9.3 mg/dL (7.8-10.44); Carbon Dioxide 26 mmol/L (23-31); Chloride 92 mmol/L (98-107); Glucose 137 mg/dL (80-115); Potassium 4.3 mmol/L (3.5-5.1); Sodium 129 mmol/L (136-145)
[2020-02-22] MEDS: traZODone HCl 50 MG TAB PO SCH (20:04)
[2020-02-22] MEDS ORDERED: hydrALAZINE 20 MG/ML VIAL SLOW IVP PRN (21:09)
[2020-02-22 23:09] LABS: Anion Gap 15 mmol/L (10-20); BUN (Urea Nitrogen) 10 mg/dL (9.8-20.1); Calc. Creatinine Clearance 48 mL/min (70-130); Calcium 8.9 mg/dL (7.8-10.44); Carbon Dioxide 25 mmol/L (23-31); Chloride 91 mmol/L (98-107); Glucose 186 mg/dL (80-115); Sodium 127 mmol/L (136-145)
[2020-02-23] MEDS: Dextrose 5% in Water 1,000 ML IV SCH ×2 (04:27→05:17)
[2020-02-23 05:58] LABS: Hemoglobin 11.2 g/dL (12.0-16.0); Mean Platelet Volume 7.8 fL (7.4-10.4); Platelet Count 225 thou/uL (130-400); RBC Distribution Width 13.9 % (11.5-14.5); Red Blood Cell (RBC) Count 3.29 mill/uL (4.20-5.40); White Blood Cell (WBC) Count 6.8 thou/uL (4.8-10.8)
[2020-02-23 06:12] LABS: Anion Gap 14 mmol/L (10-20); BUN (Urea Nitrogen) 8 mg/dL (9.8-20.1); Calc. Creatinine Clearance 52 mL/min (70-130); Carbon Dioxide 25 mmol/L (23-31); Chloride 90 mmol/L (98-107); Glucose 148 mg/dL (80-115); Potassium 3.9 mmol/L (3.5-5.1); Sodium 125 mmol/L (136-145)
[2020-02-23 06:31] LABS: Band 4 % (5-11); Lymphocytes 16 % (21-51); MDiff Complete? YES; Monocytes 12 % (0-10); Neutrophil 68 % (42-75)
--- NOTE | 2020-02-23 06:36 | PDOC.NEPPN ---
- Subjective Encounter Date: 02/23/20 Subjective: No new problem. No nausea or vomiting. - Objective Vital Signs & Weight: Vital Signs (12 hours) Temp Pulse Resp BP BP Pulse Ox 02/23/20 04:32 98.6 F 93 16 110/64 92 L 02/23/20 04:00 110/64 02/23/20 00:00 123/66 02/22/20 23:59 98.9 F 85 16 123/66 93 L 02/22/20 22:14 88 196/88 H 02/22/20 20:04 92 L 02/22/20 20:00 196/88 H 02/22/20 19:41 99.2 F 88 16 196/88 H 92 L Weight Weight 94 lb I&O: 02/21/20 02/22/20 02/23/20 06:59 06:59 06:59 Intake Total 2640 Balance 2640 Result Diagrams: 02/23/20 05:15 02/23/20 05:15 Nephrology ROS - Medication Medications: Active Medications Generic Name Dose Route Start Last Admin Trade Name Freq PRN Reason Stop Dose Admin Acetaminophen 650 mg 02/22/20 15:16 02/22/20 20:19 Acetaminophen 325 Mg Tab PO 650 mg Q4H PRN Administration Fever/Mild Pain Aspirin 81 mg 02/22/20 09:00 02/22/20 08:22 Aspirin 81 Mg Enteric Coated Tablet PO 81 mg DAILY BARRIE Administration Enoxaparin Sodium 40 mg 02/22/20 09:00 02/22/20 08:22 Enoxaparin Sodium 40 Mg/0.4 Ml Syringe SC 40 mg 0900 BARRIE Administration Gabapentin 300 mg 02/22/20 09:00 02/22/20 20:04 Gabapentin 300 Mg Cap PO 300 mg BID BARRIE Administration Hydralazine HCl 10 mg 02/22/20 21:09 02/22/20 22:14 Hydralazine 20 Mg/Ml Vial SLOW IVP 10 mg Q6H PRN Administration SBP>180 Sodium Chloride 10 ml 02/22/20 21:00 02/22/20 20:05 Flush - Normal Saline 10 Ml Syringe IVF Not Given Q12HR BARRIE Trazodone HCl 100 mg 02/22/20 21:00 02/22/20 20:04 Trazodone Hcl 50 Mg Tab PO 100 mg HS BARRIE Administration - Exam General - other findings: frail. No distress Eye: anicteric sclera ENT: normocephalic atraumatic Neck: symmetric, no JVD Respiratory - other findings: fair air entry bilateraly with some transmitted so und Cardiovascular: RRR Gastrointestinal: soft, non-tender, non-distended, normal bowel sounds Extremities: no edema Neurological: CN's grossly intact, no focal deficits Musculoskeletal: diffuse muscle atrophy PSYCH: A&O x 3 Nephrology Results - Labs Result Diagrams: 02/23/20 05:15 02/23/20 05:15 Lab results: WBC 6.8 thou/uL (4.8-10.8) 02/23/20 05:15 Hgb 11.2 g/dL (12.0-16.0) L 02/23/20 05:15 Hct 32.9 % (36.0-47.0) L 02/23/20 05:15 MCV 100.0 fL (78.0-98.0) H 02/23/20 05:15 Plt Count 225 thou/uL (130-400) 02/23/20 05:15 Band Neuts % (Manual) 4 % (5-11) L 02/23/20 05:15 Sodium 125 mmol/L (136-145) L 02/23/20 05:15 Potassium 3.9 mmol/L (3.5-5.1) 02/23/20 05:15 Chloride 90 mmol/L (98-107) L 02/23/20 05:15 Carbon Dioxide 25 mmol/L (23-31) 02/23/20 05:15 BUN 8 mg/dL (9.8-20.1) L 02/23/20 05:15 Creatinine 0.68 mg/dL (0.6-1.1) 02/23/20 05:15 Glucose 148 mg/dL (80-115) H 02/23/20 05:15 Calcium 9.0 mg/dL (7.8-10.44) 02/23/20 05:15 Total Bilirubin 0.5 mg/dL (0.2-1.2) 02/22/20 00:59 AST 48 U/L (5-34) H 02/22/20 00:59 ALT 21 U/L (8-55) 02/22/20 00:59 Alkaline Phosphatase 53 U/L (40-110) 02/22/20 00:59 Serum Total Protein 6.8 g/dL (6.0-8.3) 02/22/20 00:59 Albumin 4.2 g/dL (3.4-4.8) 02/22/20 00:59 Urine Ketones Negative mg/dL (Negative) 02/22/20 01:57 Urine Blood 1+ (Negative) A 02/22/20 01:57 Urine Nitrite Negative (Negative) 02/22/20 01:57 Ur Leukocyte Esterase Negative Edin/uL (Negative) 02/22/20 01:57 Urine RBC 0-3 HPF (0-3) 02/22/20 01:57 Urine WBC None Seen HPF (0-3) 02/22/20 01:57 Ur Squamous Epith Cells 0-3 HPF (0-3) 02/22/20 01:57 Urine Bacteria None Seen HPF (None Seen) 02/22/20 01:57 Sodium 125 mmol/L (136-145) L 02/23/20 05:15 Potassium 3.9 mmol/L (3.5-5.1) 02/23/20 05:15 Chloride 90 mmol/L (98-107) L 02/23/20 05:15 Carbon Dioxide 25 mmol/L (23-31) 02/23/20 05:15 Anion Gap 14 mmol/L (10-20) 02/23/20 05:15 BUN 8 mg/dL (9.8-20.1) L 02/23/20 05:15 Creatinine 0.68 mg/dL (0.6-1.1) 02/23/20 05:15 Glucose 148 mg/dL (80-115) H 02/23/20 05:15 Calcium 9.0 mg/dL (7.8-10.44) 02/23/20 05:15 Albumin 4.2 g/dL (3.4-4.8) 02/22/20 00:59 Nephrology AP PN - Plan Hyponatremia: Due to poor solute intake and alcohol abuse. Despite sodium of 120, plasma osmolality is 302 with urine osmolality of 155. Alohol level was 299. Given chronicity of hyponatremia though with acute component, as well as c hronic alcohol abuse, patient is at increased risk of ODS if sodium is corrected too fast as is going. DC dextrose water with plasma sodium down to 125. [place] solute intake advise. Start oral supplement. HTN: control acceptable with restart of lisinopril. Right femoral fracture Chronic alcohol use with acute intoxication.
[2020-02-23] MEDS: Gabapentin 300 MG CAP PO SCH ×2 (07:51→20:14)
[2020-02-23] MEDS: Acetaminophen 325 MG TAB PO PRN ×3 (07:55→20:14)
[2020-02-23] MEDS: Aspirin 81 mg Enteric Coated Tablet PO SCH (07:56)
[2020-02-23] MEDS: Enoxaparin Sodium 40 MG/0.4 ML SYRINGE SC SCH (07:56)
[2020-02-23] MEDS: FLUoxetine HCl 20 MG CAP PO SCH (07:57)
[2020-02-23] MEDS: Folic Acid 1 MG TAB PO SCH (07:57)
[2020-02-23] MEDS: Magnesium Oxide 400 MG TAB PO SCH (07:57)
[2020-02-23] MEDS: Thiamine 100 MG TAB PO SCH (07:57)
[2020-02-23] MEDS: Multivitamin W/ Minerals 1 TAB PO SCH (07:57)
[2020-02-23] MEDS: Lisinopril 20 MG TAB PO SCH (07:59)
--- NOTE | 2020-02-23 09:29 | CON ---
DATE OF CONSULTATION: HISTORY OF PRESENT ILLNESS: We were asked by the hospital service to see the patient. The patient came in with generalized nausea, vomiting, and some malaise. Unfortunately, she is a fairly heavy drinker and had been cutting back, and she attributes this to feeling bad. Apparently, over the past week or so, she has been having similar symptoms. It was found that once her alcohol level started decreasing and she started to sober up while in the hospital, she complained of some right hip pain. Per the event note by Dr. Denson, the patient apparently fell the night before due to intoxication and sustained a right greater trochanteric hip fracture. Currently, she is moving her right leg in bed. It is sore, but she is able to do it. No numbness or tingling down the leg, and apparently, no other injuries that she currently complains of. ALLERGIES: CEFADROXIL AND CEPHALOSPORINS. HOME MEDICATIONS: 1. Nicotine. 2. Baby aspirin. 3. Fluoxetine. 4. Gabapentin. 5. Lisinopril. 6. Thiamine. 7. Trazodone. PAST SURGICAL HISTORY: Right hip fracture, tonsillectomy. FAMILY HISTORY: For this visit is noncontributory. SOCIAL HISTORY: Lives with another person. Smoking status, current smoker. Drinks daily. No drug use. PAST MEDICAL HISTORY: Chronic alcoholism, some depression, hypertension. REVIEW OF SYSTEMS: Currently denies any shortness of breath, fever, chills, or bowel or bladder issues. Only positive review of systems is pain over the right greater trochanteric region. PHYSICAL EXAMINATION: GENERAL: Small appearing female, resting in a bed in room 17 on the 3rd floor, in no acute distress. Speech clear. Answers questions appropriately. She is oriented x3. HEENT: Scalp atraumatic. Face symmetric. Tongue midline. NECK: Supple. Trachea midline. EXTREMITIES: Upper extremities; small, but equal size, shape, symmetry. Movement and sensations intact. Lower extremities are also equal size, shape, symmetry, small, but moving well except for the right, which is painful with palpation and movement over the greater trochanteric bursa area. Lower extremity sensations equal. DP and PT pulses are intact. LUNGS: Respirations 16. No acute distress. PELVIS: No pain with rocking. ASSESSMENT: 1. Multiple health issues, currently being seen by hospitalist. 2. Greater trochanteric fracture, nondisplaced femoral stem. PLAN: I spoke with the patient and let her know she does not need surgery for this and that her hardware is intact. She is quite elated with this prospect. I did inform her that she can eat, but the hospitalists are managing her diet and other health issues. We will add some [place] for her pain control to see if this gives her any relief. If not, we may need to tweak this a little bit. She can start therapy today and weight bear as tolerated on a walker. I did inform her that if she struggles with her activity while she is here, she may need to go to some form of aftercare rehab, skilled, SNF, something along those lines. This frustrated her, but I think she understands it is probably a necessity to get her tuned up and make sure her gait and balance are in check. Job ID: [id number]
--- NOTE | 2020-02-23 13:40 | PQF ---
CLINICAL DOCUMENTATION CLARIFICATION FORM: Dear Dr. GALE KING Date: 02-23-20 Please exercise your independent, professional judgment in responding to the clarification form. Clinical indicators are provided on the bottom of this form for your review. Please check appropriate box(es): [ ] Protein Calorie Malnutrition: [ ] Mild [ ] Moderate [ ] Severe [ ] Other Malnutrition (please specify) [ ] Other diagnosis [ ] Unable to determine In addition, please specify: Present on Admission (POA): [ ] Yes [ ] No [ ] Unable to determine For continuity of documentation, please document condition throughout progress notes and discharge summary. Thank You. To be completed by CDI/Coding staff for physician review: CLINICAL INDICATORS - SIGNS / SYMPTOMS / LABS / RESULTS AND LOCATION IN MR: REGISTERED NURSE FIRST ASSISTANT ASSESSMENT 02-23-20: BMI: 17.7 H&P: 02-22-20: HX ALCOHOLISM, HTN, RIGHT SIDED RIB FRACTURES, PRESENTED WITH NAUSEA VOMITING AND GENERAL MALAISE H&P 02-22-20 PLAN: PROFOUND HYPONATREMIA LIKELY 2/2 TO ACUTE INTOXICATION POSSIBLY HYPOSMOLAR HYPONATREMIA. LIKELY ACUTE REGISTERED NURSE FIRST ASSISTANT ASSESSMENT 02-23-20: The patient reported her appetite has not been great but she is eating. UBW is 100# which she weighed 1 week ago. She was admitted with n/v, PMH INCLUDES: alcoholism, HTN, R-side fib fractures; plasma alcohol 299 at admit, RD noted severe generalized muscle and fat wasting ; severe generalized muscle and fat wasting, estimated intake <50% of needs likely > 3 months suggestive of severe malnutrition in the context of chronic illness RISK FACTORS / RESULTS AND LOCATION IN MR: REGISTERED NURSE FIRST ASSISTANT ASSESSMENT 02-23-20: The patient reported her appetite has not been great but she is eating. UBW is 100# which she weighed 1 week ago. She was admitted with n/v, PMH INCLUDES: alcoholism, HTN, R-side fib fractures; plasma alcohol 299 at admit TREATMENT / RESULTS AND LOCATION IN MR: REGISTERED NURSE FIRST ASSISTANT ASSESSMENT 02-23-20: 1. Recommend a Regular diet. Low Sodium is not appropriate currently d/t hyponatremia. 2. Continue Ensure Enlive TID. 3. Monitor and replace electrolytes PRN. 4. Provide MVI, thiamine, and folate supplementation. Moderate Malnutrition (in acute illness) Energy Intake: <75% of estimated energy requirement for > 7 days Weight Loss: 1-2%/1 week; 5%/ 1 month; 7.5%/3 months Other: mild body fat loss; mild muscle mass loss; mild fluid accumulation; Severe Malnutrition (in acute illness) Energy Intake: = 50% of estimated energy requirement for = 5 days Weight Loss: >2%/1 week; >5%/1 month; >7.5%/3 months Other: moderate body fat loss; moderate muscle mass loss; moderate- severe fluid accumulation; measurably reduced tool turret lathe set up operator strength Moderate Malnutrition (in chronic illness) Energy Intake: <75% of estimated energy requirement for =1 month Weight Loss: 5%/1 month; 7.5%/3 months; 10%/6 months; 20%/1 year Other: mild body fat loss; mild muscle mass loss; mild fluid accumulation Severe Malnutrition (in chronic illness) Energy Intake: =75% of estimated energy requirement for =1 month Weight Loss: >5%/1 month; >7.5%/3 months; >10%/6 months; >20%/1 year Other: severe body fat loss; severe muscle mass loss; severe fluid accumulation; measurably reduced tool turret lathe set up operator strength CDS Signature: Zara Olvera Phone #: [phone] Date: 02-23-20 This is a permanent part of the Medical Record [facility]
[2020-02-23 15:22] LABS: Anion Gap 16 mmol/L (10-20); BUN (Urea Nitrogen) 13 mg/dL (9.8-20.1); Calc. Creatinine Clearance 40 mL/min (70-130); Calcium 9.4 mg/dL (7.8-10.44); Carbon Dioxide 25 mmol/L (23-31); Chloride 89 mmol/L (98-107); Glucose 171 mg/dL (80-115); Potassium 4.2 mmol/L (3.5-5.1); Sodium 126 mmol/L (136-145)
[2020-02-23] MEDS: Pentazocine HCl/Naloxone HCl 50/0.5 MG TAB PO PRN (15:34)
[2020-02-23] MEDS ORDERED: guaiFENesin ER 600 MG TAB PO SCH (16:45)
[2020-02-23] MEDS ORDERED: Nicotine 21 MG PATCH TOP SCH (17:00)
--- NOTE | 2020-02-23 18:07 | PDOC.HOSPP ---
- Subjective Encounter Date: 02/23/20 Encounter Time: 08:30 Subjective: Patient seen for follow-up for hyponatremia. Denies chest pain, shortness of breath, fevers or chills. - Objective Vital Signs & Weight: Vital Signs (12 hours) Temp Pulse Resp BP BP Pulse Ox 02/23/20 11:56 98.3 F 85 14 106/62 95 02/23/20 11:05 106/62 02/23/20 08:11 98.2 F 86 16 157/78 H 92 L 02/23/20 07:59 157/78 H 02/23/20 07:50 92 L 02/23/20 07:48 157/78 H Weight Admit Weight 94 lb Weight 94 lb I&O: 02/22/20 02/23/20 02/24/20 06:59 06:59 06:59 Intake Total 2640 Balance 2640 Result Diagrams: 02/23/20 05:15 02/23/20 14:50 Additional Labs: Labs and MAR reviewed by [facility] Hospitalist ROS - Review of Systems Constitutional: reports: weakness Cardiovascular: denies: chest pain, palpitations, orthopnea, paroxysmal noc. dyspnea, edema, light headedness Gastrointestinal: denies: nausea, vomiting, abdominal pain, diarrhea, constipation, melena, hematochezia - Medication Medications: Active Medications Generic Name Dose Route Start Last Admin Trade Name Freq PRN Reason Stop Dose Admin Acetaminophen 650 mg 02/22/20 15:16 02/23/20 16:32 Acetaminophen 325 Mg Tab PO 650 mg Q4H PRN Administration Fever/Mild Pain Aspirin 81 mg 02/22/20 09:00 02/23/20 07:56 Aspirin 81 Mg Enteric Coated Tablet PO 81 mg DAILY BARRIE Administration Enoxaparin Sodium 40 mg 02/22/20 09:00 02/23/20 07:56 Enoxaparin Sodium 40 Mg/0.4 Ml Syringe SC 40 mg 0900 BARRIE Administration Fluoxetine HCl 20 mg 02/23/20 09:00 02/23/20 07:57 Fluoxetine Hcl 20 Mg Cap PO 20 mg DAILY BARRIE Administration Folic Acid 1 mg 02/23/20 09:00 02/23/20 07:57 Folic Acid 1 Mg Tab PO 1 mg DAILY BARRIE Administration Gabapentin 300 mg 02/22/20 09:00 02/23/20 07:51 Gabapentin 300 Mg Cap PO 300 mg BID BARRIE Administration Guaifenesin 600 mg 02/23/20 16:45 02/23/20 17:05 Guaifenesin Er 600 Mg Tab PO 02/23/20 18:45 600 mg NOW BARRIE Administration Hydralazine HCl 10 mg 02/22/20 21:09 02/22/20 22:14 Hydralazine 20 Mg/Ml Vial SLOW IVP 10 mg Q6H PRN Administration SBP>180 Iron/Minerals/Multivitamins 1 tab 02/23/20 09:00 02/23/20 07:57 Multivitamin W/ Minerals 1 Tab PO 1 tab DAILY BARRIE Administration Lisinopril 20 mg 02/23/20 09:00 02/23/20 07:59 Lisinopril 20 Mg Tab PO 20 mg DAILY BARRIE Administration Magnesium Oxide 400 mg 02/23/20 09:00 02/23/20 07:57 Magnesium Oxide 400 Mg Tab PO 400 mg DAILY BARRIE Administration Nicotine 21 mg 02/23/20 17:00 02/23/20 17:05 Nicotine 21 Mg Patch TOP 02/23/20 19:00 21 mg NOW BARRIE Administration Pentazocine HCl/Naloxone HCl 1 tab 02/23/20 08:10 02/23/20 15:34 Pentazocine Hcl/Naloxone Hcl 50/0.5 Mg Tab PO 1 tab TID PRN Administration Pain Sodium Chloride 10 ml 02/22/20 21:00 02/23/20 07:57 Flush - Normal Saline 10 Ml Syringe IVF Not Given Q12HR BARRIE Thiamine HCl 100 mg 02/23/20 09:00 02/23/20 07:57 Thiamine 100 Mg Tab PO 100 mg DAILY BARRIE Administration Trazodone HCl 100 mg 02/22/20 21:00 02/22/20 20:04 Trazodone Hcl 50 Mg Tab PO 100 mg HS BARRIE Administration - Exam General Appearance: awake alert Eye: anicteric sclera ENT: moist mucosa Neck: supple Heart: RRR Respiratory: CTAB Gastrointestinal: soft, non-tender Skin: no rashes Psychiatric: normal affect, normal behavior Hosp A/P - Plan -Assessment/plan -hyponatremia Sodium improved 126. Appreciate nephrology service input. Alcohol intoxication Continue ASE protocol Hypertension Controlled and stable Anxiety/depression Stable, fluoxetine is on hold.
[2020-02-23] MEDS: Diazepam 5 MG TAB PO PRN (20:13)
[2020-02-23] MEDS: guaiFENesin ER 600 MG TAB PO SCH (20:13)
[2020-02-23] MEDS: traZODone HCl 50 MG TAB PO SCH (20:14)
[2020-02-24 06:19] LABS: Anion Gap 16 mmol/L (10-20); BUN (Urea Nitrogen) 20 mg/dL (9.8-20.1); Calc. Creatinine Clearance 44 mL/min (70-130); Calcium 9.8 mg/dL (7.8-10.44); Carbon Dioxide 33 mmol/L (23-31); Chloride 86 mmol/L (98-107); Glucose 124 mg/dL (80-115); Potassium 4.6 mmol/L (3.5-5.1); Sodium 130 mmol/L (136-145)
[2020-02-24] MEDS: Magnesium Oxide 400 MG TAB PO SCH (08:23)
[2020-02-24] MEDS: Aspirin 81 mg Enteric Coated Tablet PO SCH (08:23)
[2020-02-24] MEDS: Gabapentin 300 MG CAP PO SCH ×2 (08:23→20:41)
[2020-02-24] MEDS: guaiFENesin ER 600 MG TAB PO SCH ×2 (08:25→20:40)
[2020-02-24] MEDS: Folic Acid 1 MG TAB PO SCH (08:25)
[2020-02-24] MEDS: Lisinopril 20 MG TAB PO SCH (08:25)
[2020-02-24] MEDS: FLUoxetine HCl 20 MG CAP PO SCH (08:25)
[2020-02-24] MEDS: Multivitamin W/ Minerals 1 TAB PO SCH (08:25)
[2020-02-24] MEDS: Thiamine 100 MG TAB PO SCH (08:25)
[2020-02-24] MEDS: Nicotine 21 MG PATCH TD SCH (08:26)
[2020-02-24] MEDS: Enoxaparin Sodium 40 MG/0.4 ML SYRINGE SC SCH (08:26)
[2020-02-24] MEDS: Diazepam 5 MG TAB PO PRN ×2 (10:04→20:40)
[2020-02-24] MEDS: Acetaminophen 325 MG TAB PO PRN ×3 (10:06→20:40)
--- NOTE | 2020-02-24 12:24 | PDOC.DS.DS ---
Provider - Provider Date of Admission: 02/22/20 02:16 Date of Discharge: 02/24/20 Admitting Provider: Kateryna Ludwig MD Consultations: Nephrology (Dr. Castillo), Orthopedics (Checo Saleem) Primary Care Physician: Lul Maria MD Course - Hospital Course Hospital Course: Discharge diagnosis: 1. Hyponatremia 2. Alcohol intoxication 3. Severe protein calorie malnutrition, present on admission 4. COVID-19 PCR test negative Hospital course: Patient is a pleasant 69-year-old lady who was admitted to the hospital on February 22, 2020 for hyponatremia and alcohol intoxication. She was seen by nephrology service. It was felt that her hyponatremia was due to poor solute intake and alcohol abuse. She had liberal solute intake with improvement in her sodium level. She was also seen by orthopedic surgery service for greater trochanteric fracture, nondisplaced femoral stem. They will let the patient know that she does not need surgery for this and that her hardware was intact. She was also seen by therapy service and was recommended discharge to home with home health. Physical therapist recommended rolling walker. Resuscitation Status: 02/22/20 04:07 Resuscitation Status Routine Resuscitation Status: FULL: Full Resuscitation - Labs Lab Results: 02/23/20 05:15 02/24/20 05:33 Abnormal Lab Results - Last 48 hrs 02/22/20 11:58: Sodium 132 L, Chloride 95 L, BUN 9 L 02/22/20 16:17: Sodium 131 L, Chloride 95 L 02/22/20 19:32: Sodium 129 L, Chloride 92 L 02/22/20 22:26: Sodium 127 L, Chloride 91 L 02/23/20 05:15: Sodium 125 L, Chloride 90 L, BUN 8 L 02/23/20 05:15: RBC 3.29 L, Hgb 11.2 L, Hct 32.9 L, MCV 100.0 H, MCH 34.0 H, Band Neuts % (Manual) 4 L, Lymphocytes % (Manual) 16 L, Monocytes % (Manual) 12 H 02/23/20 14:50: Sodium 126 L, Chloride 89 L 02/24/20 05:33: Sodium 130 L, Chloride 86 L, Carbon Dioxide 33 H - Physical Exam Vitals: Vital Signs (12 hours) Temp Pulse Resp BP BP BP Pulse Ox 02/24/20 10:42 97.5 F L 73 18 105/62 91 L 02/24/20 08:25 102/61 02/24/20 07:40 97.7 F 75 16 102/65 92 L 02/24/20 04:00 98/61 02/24/20 03:49 97.4 F L 78 16 98/61 92 L Weight Admit Weight 94 lb Weight 94 lb Physical Exam: The patient was seen and examined on the day of discharge. Patient denies chest pain or shortness of breath. Vital signs are stable. S1 and S2 are heard. Lungs are clear to auscultation bilaterally. Plan - Discharge Medications Prescriptions: Folic Acid [Folvite] 1 mg PO DAILY #30 tab Home Medications: Medication Instructions Recorded Confirmed Type Aspirin [Ecotrin Low Strength] 81 mg PO DAILY 02/09/20 02/22/20 History FLUoxetine HCl [Prozac] 20 mg PO DAILY 02/09/20 02/22/20 History Gabapentin 300 mg PO BID 02/09/20 02/22/20 History Nicotine [Nicoderm CQ] 21 mg TD Q24H patch 02/09/20 02/22/20 Rx traZODone HCl [Trazodone HCl] 100 mg PO HS 02/09/20 02/22/20 History Lisinopril 20 mg PO DAILY #30 tablet 02/10/20 02/22/20 Rx Thiamine 100 mg PO DAILY #30 tab 02/10/20 02/22/20 Rx Folic Acid [Folvite] 1 mg PO DAILY #30 tab 02/24/20 Rx Allergies: cefadroxil hydrate [From [facility]] Allergy (Verified 02/09/20 05:01) Cephalosporins Allergy (Verified 02/09/20 05:01) - Discharge Instructions Discharge Instructions:: STOP ALCOHOL ABUSE Activity:: Activity as Tolerated Nourishment:: Heart Healthy Diet - Follow up Plan Referrals: Lul Maria MD [Primary Care Provider] - 3 Days Sandhya Castillo MD [Active] - 2-3 Weeks Disposition: HOME Quality - Care Measures CORE MEASURES:: N/A
--- NOTE | 2020-02-24 17:53 | PRG ---
DATE OF SERVICE: 02/24/2020 SUBJECTIVE: Patient noted with the following vital signs. OBJECTIVE: VITAL SIGNS: Afebrile, temperature 97.6, pulse 78, respiratory rate of 16, O2 saturation of 91%, blood pressure 103/62. HEENT: Unremarkable. CARDIOVASCULAR: First and second heart sounds were heard. RESPIRATORY: Clear to auscultation. DIGESTIVE: Revealed a benign abdomen. Positive bowel sounds. EXTREMITIES: No peripheral edema. SKIN: No new gross rash. LYMPHATICS: No peripheral lymphadenopathy. IMPRESSION: Hyponatremia, likely in the context of poor p.o. osmolar intake. PLAN: 1. Continue current renal supportive measures. Increase osmolar intake in this patient. Encourage the patient to eat more protein in the way of animal meat. 2. Likely the patient may be discharged today. 3. Further management to be dependent on the clinical course. Job ID: [id number]
--- NOTE | 2020-02-24 20:17 | PDOC.HOSPP ---
- Subjective Encounter Date: 02/24/20 Encounter Time: 20:15 Subjective: Patient seen for follow-up regarding hyponatremia. She denies any new complaints. - Objective Vital Signs & Weight: Vital Signs (12 hours) Temp Pulse Resp BP BP Pulse Ox 02/24/20 15:24 97.6 F 78 16 103/62 91 L 02/24/20 15:00 16 02/24/20 10:42 97.5 F L 73 18 105/62 91 L 02/24/20 08:25 102/61 Weight Admit Weight 94 lb Weight 94 lb I&O: 02/23/20 02/24/20 02/25/20 06:59 06:59 06:59 Intake Total 2640 500 Balance 2640 500 Result Diagrams: 02/23/20 05:15 02/24/20 05:33 Additional Labs: I reviewed patient's labs and [facility] Hospitalist ROS - Review of Systems Cardiovascular: denies: chest pain, palpitations, orthopnea, paroxysmal noc. dyspnea, edema, light headedness Gastrointestinal: denies: nausea, vomiting, abdominal pain, diarrhea, constipation, melena, hematochezia - Medication Medications: Active Medications Generic Name Dose Route Start Last Admin Trade Name Freq PRN Reason Stop Dose Admin Acetaminophen 650 mg 02/22/20 15:16 02/24/20 14:26 Acetaminophen 325 Mg Tab PO 650 mg Q4H PRN Administration Fever/Mild Pain Aspirin 81 mg 02/22/20 09:00 02/24/20 08:23 Aspirin 81 Mg Enteric Coated Tablet PO 81 mg DAILY BARRIE Administration Diazepam 5 mg 02/23/20 04:00 02/24/20 10:04 Diazepam 5 Mg Tab PO 5 mg Q4H PRN Administration FOR ASE 10 OR GREATER Enoxaparin Sodium 40 mg 02/22/20 09:00 02/24/20 08:26 Enoxaparin Sodium 40 Mg/0.4 Ml Syringe SC 40 mg 0900 BARRIE Administration Fluoxetine HCl 20 mg 02/23/20 09:00 02/24/20 08:25 Fluoxetine Hcl 20 Mg Cap PO 20 mg DAILY BARRIE Administration Folic Acid 1 mg 02/23/20 09:00 02/24/20 08:25 Folic Acid 1 Mg Tab PO 1 mg DAILY BARRIE Administration Gabapentin 300 mg 02/22/20 09:00 02/24/20 08:23 Gabapentin 300 Mg Cap PO 300 mg BID BARRIE Administration Guaifenesin 600 mg 02/23/20 21:00 02/24/20 08:25 Guaifenesin Er 600 Mg Tab PO 600 mg Q12HR BARRIE Administration Hydralazine HCl 10 mg 02/22/20 21:09 02/22/20 22:14 Hydralazine 20 Mg/Ml Vial SLOW IVP 10 mg Q6H PRN Administration SBP>180 Iron/Minerals/Multivitamins 1 tab 02/23/20 09:00 02/24/20 08:25 Multivitamin W/ Minerals 1 Tab PO 1 tab DAILY BARRIE Administration Lisinopril 20 mg 02/23/20 09:00 02/24/20 08:25 Lisinopril 20 Mg Tab PO 20 mg DAILY BARRIE Administration Magnesium Oxide 400 mg 02/23/20 09:00 02/24/20 08:23 Magnesium Oxide 400 Mg Tab PO 400 mg DAILY BARRIE Administration Nicotine 21 mg 02/24/20 09:00 02/24/20 08:26 Nicotine 21 Mg Patch TD 21 mg DAILY BARRIE Administration Pentazocine HCl/Naloxone HCl 1 tab 02/23/20 08:10 02/23/20 15:34 Pentazocine Hcl/Naloxone Hcl 50/0.5 Mg Tab PO 1 tab TID PRN Administration Pain Sodium Chloride 10 ml 02/22/20 21:00 02/24/20 16:41 Flush - Normal Saline 10 Ml Syringe IVF Not Given Q12HR BARRIE Thiamine HCl 100 mg 02/23/20 09:00 02/24/20 08:25 Thiamine 100 Mg Tab PO 100 mg DAILY BARRIE Administration Trazodone HCl 100 mg 02/22/20 21:00 02/23/20 20:14 Trazodone Hcl 50 Mg Tab PO 100 mg HS BARRIE Administration - Exam General Appearance: awake alert ENT: normocephalic atraumatic Heart: RRR Respiratory: CTAB Gastrointestinal: soft, non-distended Skin: no rashes Musculoskeletal: normal tone Psychiatric: normal affect, normal behavior Hosp A/P - Plan -Assessment/plan -hyponatremia Sodium improving, nephrology service following. Alcohol intoxication No acute issues at this time. Hypertension Controlled and stable Anxiety/depression Stable, fluoxetine resumed. Patient will need home health, case management consulted.
[2020-02-24] MEDS: traZODone HCl 50 MG TAB PO SCH (20:40)
[2020-02-25] MEDS: Acetaminophen 325 MG TAB PO PRN ×2 (08:19→12:27)
[2020-02-25] MEDS: Multivitamin W/ Minerals 1 TAB PO SCH (08:20)
[2020-02-25] MEDS: FLUoxetine HCl 20 MG CAP PO SCH (08:20)
[2020-02-25] MEDS: Gabapentin 300 MG CAP PO SCH (08:20)
[2020-02-25] MEDS: Folic Acid 1 MG TAB PO SCH (08:21)
[2020-02-25] MEDS: Magnesium Oxide 400 MG TAB PO SCH (08:21)
[2020-02-25] MEDS: guaiFENesin ER 600 MG TAB PO SCH (08:21)
[2020-02-25] MEDS: Lisinopril 20 MG TAB PO SCH (08:21)
[2020-02-25] MEDS: Thiamine 100 MG TAB PO SCH (08:21)
[2020-02-25] MEDS: Enoxaparin Sodium 40 MG/0.4 ML SYRINGE SC SCH (08:21)
[2020-02-25] MEDS: Aspirin 81 mg Enteric Coated Tablet PO SCH (08:21)
[2020-02-25 09:03] VITALS: TEMP 97.8
--- NOTE | 2020-02-25 11:52 | PDOC.DS.DS ---
Provider - Provider Date of Admission: 02/22/20 02:16 Date of Discharge: 02/25/20 Admitting Provider: Kateryna Ludwig MD Consultations: Nephrology (Dr. Castillo), Orthopedics (Dr. Zuniga) Primary Care Physician: Lul Maria MD Course - Hospital Course Hospital Course: Discharge diagnosis: 1. Hyponatremia 2. Alcohol intoxication 3. Severe protein calorie malnutrition, present on admission 4. COVID-19 PCR test negative Hospital course: Patient is a pleasant 69-year-old lady who was admitted to the hospital on J anuary 2020 for hyponatremia and alcohol intoxication. She was seen by nephrology service. It was felt that her hyponatremia was due to poor solute intake and alcohol abuse. She had liberal solute intake with improvement in her sodium level. She was also seen by orthopedic surgery service for greater trochanteric fracture, nondisplaced femoral stem. They will let the patient know that she does not need surgery for this and that her hardware was intact. She was also seen by therapy service and was recommended discharge to home with home health. Physical therapist recommended rolling walker. She received a prescription for a rolling walker. Resuscitation Status: 02/22/20 04:07 Resuscitation Status Routine Resuscitation Status: FULL: Full Resuscitation - Labs Lab Results: 02/23/20 05:15 02/24/20 05:33 Abnormal Lab Results - Last 48 hrs 02/23/20 14:50: Sodium 126 L, Chloride 89 L 02/24/20 05:33: Sodium 130 L, Chloride 86 L, Carbon Dioxide 33 H - Physical Exam Vitals: Vital Signs (12 hours) Temp Pulse Resp BP BP Pulse Ox 02/25/20 08:21 120/72 02/25/20 08:00 120/72 92 L 02/25/20 07:19 97.8 F 84 18 120/72 91 L 02/25/20 04:11 106/70 02/25/20 03:02 97.7 F 80 16 106/70 92 L 02/25/20 00:05 101/61 Weight Admit Weight 94 lb Weight 94 lb Physical Exam: The patient was seen and examined on the day of discharge. Patient denies chest pain or shortness of breath. Vital signs are stable. S1 and S2 are heard. Lungs are clear to auscultation bilaterally. Plan - Discharge Medications Prescriptions: Folic Acid [Folvite] 1 mg PO DAILY #30 tab Home Medications: Medication Instructions Recorded Confirmed Type Aspirin [Ecotrin Low Strength] 81 mg PO DAILY 02/09/20 02/22/20 History FLUoxetine HCl [Prozac] 20 mg PO DAILY 02/09/20 02/22/20 History Gabapentin 300 mg PO BID 02/09/20 02/22/20 History Nicotine [Nicoderm CQ] 21 mg TD Q24H patch 02/09/20 02/22/20 Rx traZODone HCl [Trazodone HCl] 100 mg PO HS 02/09/20 02/22/20 History Lisinopril 20 mg PO DAILY #30 tablet 02/10/20 02/22/20 Rx Thiamine 100 mg PO DAILY #30 tab 02/10/20 02/22/20 Rx Folic Acid [Folvite] 1 mg PO DAILY #30 tab 02/24/20 Rx Allergies: cefadroxil hydrate [From [facility]] Allergy (Verified 02/09/20 05:01) Cephalosporins Allergy (Verified 02/09/20 05:01) - Discharge Instructions Discharge Instructions:: STOP ALCOHOL ABUSE Activity:: Activity as Tolerated Nourishment:: Heart Healthy Diet - Follow up Plan Referrals: [facility] [Outside] Lul Maria MD [Primary Care Provider] - 3 Days Sandhya Castillo MD [Active] - 2-3 Weeks Arjun Bundy MD [Active] - (PRN Hip Pain) Disposition: HOME Quality - Care Measures CORE MEASURES:: N/A
[2020-02-25 11:57] VITALS: BP 128/73
[2020-02-25] MEDS: Nicotine 21 MG PATCH TD SCH (12:27)
[2020-02-25] MEDS: Pentazocine HCl/Naloxone HCl 50/0.5 MG TAB PO PRN (15:08)
== END 2020-02-25 15:29 | disposition home or self-care (01) | DRG 896 ==
LOC: ERS 00:18 → SJJU 02:16
PROVIDERS: ADMIT Emergency Medicine; ATTEND Emergency Medicine
DX: F10.129 Alcohol abuse with intoxication, unspecified (principal); S72.111A Displaced fracture of greater trochanter of right femur, initial encounter for closed fracture; E43 Unspecified severe protein-calorie malnutrition; E87.1 Hypo-osmolality and hyponatremia; Z68.1 Body mass index [BMI] 19.9 or less, adult; I10 Essential (primary) hypertension; F41.9 Anxiety disorder, unspecified; F32.9 Major depressive disorder, single episode, unspecified; F17.210 Nicotine dependence, cigarettes, uncomplicated; Z20.822 Contact with and (suspected) exposure to COVID-19; W18.30XA Fall on same level, unspecified, initial encounter; Z90.49 Acquired absence of other specified parts of digestive tract; Z90.89 Acquired absence of other organs; Z88.1 Allergy status to other antibiotic agents; Z88.8 Allergy status to other drugs, medicaments and biological substances; Z79.899 Other long term (current) drug therapy; Z79.82 Long term (current) use of aspirin
CPT/HCPCS: 36415; 72170; 80048; 80053; 80306; 80307; 81003; 81015; 83930; 83935; 84300; 85025; 87635; 93005; 94760; J0360; J1650; J2405; U0003

== ENCOUNTER 2020-04-21 23:05 | Emergency (ER) | payer MEDICARE | END 2020-04-22 00:02 | disposition home or self-care (01) | LOC: ERS 23:05 | DX: B85.0 Pediculosis due to Pediculus humanus capitis (principal); I10 Essential (primary) hypertension; F17.210 Nicotine dependence, cigarettes, uncomplicated | CPT/HCPCS: 99281 ==

== ENCOUNTER 2020-04-23 23:34 | Emergency (ER) | payer MEDICARE ==
[2020-04-23] MEDS ORDERED: Ondansetron ODT 8 MG TAB ONE (23:57)
[2020-04-24 00:16] LABS: Band 2 % (5-11); Eosinophils 1 % (0-10); Hemoglobin 11.4 g/dL (12.0-16.0); Lymphocytes 26 % (21-51); MDiff Complete? YES; Mean Corpuscular HGB CONC 34.5 g/dL (32.0-36.0); Mean Corpuscular Hemoglobin 33.5 pg (27.0-31.0); Mean Platelet Volume 6.9 fL (7.4-10.4); Monocytes 16 % (0-10); Neutrophil 53 % (42-75); Platelet Count 370 thou/uL (130-400); Platelet Morphology Comment Appears Adequate; RBC Distribution Width 13.8 % (11.5-14.5); Reactive Lymphocytes 2 % (0-10); Red Blood Cell (RBC) Count 3.39 mill/uL (4.20-5.40); White Blood Cell (WBC) Count 4.9 thou/uL (4.8-10.8)
[2020-04-24 00:33] LABS: ALT (SGPT) 21 U/L (8-55); AST (SGOT) 52 U/L (5-34); Albumin 4.2 g/dL (3.4-4.8); Alkaline Phosphatase 77 U/L (40-110); Anion Gap 19 mmol/L (10-20); BUN (Urea Nitrogen) 6 mg/dL (9.8-20.1); Bilirubin, Total 0.4 mg/dL (0.2-1.2); Calc. Creatinine Clearance 0 mL/min (70-130); Calcium 8.9 mg/dL (7.8-10.44); Carbon Dioxide 20 mmol/L (23-31); Chloride 87 mmol/L (98-107); Globulin 2.9 g/dL (2.4-3.5); Glucose 114 mg/dL (80-115); Lipase 89 U/L (8-78); Potassium 3.9 mmol/L (3.5-5.1); Protein, Total 7.1 g/dL (5.8-8.1); Sodium 122 mmol/L (136-145)
== END 2020-04-24 00:32 | disposition left against medical advice (07) ==
LOC: ERS 23:34
DX: R11.2 Nausea with vomiting, unspecified (principal); R19.7 Diarrhea, unspecified; R10.11 Right upper quadrant pain; Z79.899 Other long term (current) drug therapy
CPT/HCPCS: 36415; 80053; 83690; 85025; 99284; Q0162

== ENCOUNTER 2020-04-27 17:40 | Inpatient (IN) | payer MEDICARE ==
[2020-04-27 19:01] LABS: Hemoglobin 11.8 g/dL (12.0-16.0); Mean Corpuscular HGB CONC 34.7 g/dL (32.0-36.0); Mean Corpuscular Hemoglobin 33.6 pg (27.0-31.0); Mean Corpuscular Volume 96.7 fL (78.0-98.0); Mean Platelet Volume 6.8 fL (7.4-10.4); Platelet Count 333 thou/uL (130-400); RBC Distribution Width 14.2 % (11.5-14.5); White Blood Cell (WBC) Count 4.8 thou/uL (4.8-10.8)
[2020-04-27 19:22] LABS: Band 1 % (5-11); Lymphocytes 30 % (21-51); MDiff Complete? YES; Monocytes 14 % (0-10); Neutrophil 52 % (42-75); Platelet Morphology Comment Appears Adequate; Polychromasia SLIGHT = 2-3 cells (100X) (0-2/hpf); Reactive Lymphocytes 3 % (0-10)
[2020-04-27 19:27] LABS: ALT (SGPT) 26 U/L (8-55); AST (SGOT) 56 U/L (5-34); Albumin 4.5 g/dL (3.4-4.8); Alcohol 44 mg/dL (Less than 10); Alkaline Phosphatase 79 U/L (40-110); Anion Gap 17 mmol/L (10-20); BUN (Urea Nitrogen) 12 mg/dL (9.8-20.1); Bilirubin, Total 0.5 mg/dL (0.2-1.2); Calc. Creatinine Clearance 0 mL/min (70-130); Calcium 9.6 mg/dL (7.8-10.44); Carbon Dioxide 23 mmol/L (23-31); Chloride 81 mmol/L (98-107); Glucose 97 mg/dL (80-115); Lipase 80 U/L (8-78); Potassium 3.8 mmol/L (3.5-5.1); Protein, Total 7.5 g/dL (5.8-8.1)
[2020-04-27 19:42] LABS: Sodium 117 mmol/L (136-145)
[2020-04-27] MEDS ORDERED: Multivitamins, Adult 10 ML, Thiamine HCl 100 MG, Folic Acid 1 MG in Dextrose 5 %-0.45 %... IV SCH (21:00)
[2020-04-27] MEDS ORDERED: Ondansetron PF 4 MG/2 ML Vial ONE (21:23)
[2020-04-27 21:54] LABS: Bilirubin Negative (Negative); Blood, Urine 1+ (Negative); Clarity Clear (Clear); Glucose, Urine (Dipstick) Normal (Negative); Ketone, Urine Negative (Negative); Leukocyte Negative Leu/uL (Negative); Nitrite Negative (Negative); Protein, Urine (Dipstick) Negative (Neg-Trace); RBC/HPF 0-3 HPF (0-3); Urobilinogen Normal mg/dL (Less than 2); WBC/HPF 0-3 HPF (0-3); pH, Urine 5.5 (5.0-9.0)
[2020-04-27 21:55] LABS: Anion Gap 17 mmol/L (10-20); BUN (Urea Nitrogen) 11 mg/dL (9.8-20.1); Calc. Creatinine Clearance 0 mL/min (70-130); Calcium 9.6 mg/dL (7.8-10.44); Carbon Dioxide 25 mmol/L (23-31); Chloride 80 mmol/L (98-107); Glucose 98 mg/dL (80-115)
[2020-04-27 21:57] LABS: Sodium 118 mmol/L (136-145)
[2020-04-27 22:00] LABS: Amphetamine Not Detected (NotDetected); Barbiturates Screen Not Detected (NotDetected); Benzodiazepine Screen Not Detected (NotDetected); Cocaine Metabolite Screen Not Detected (NotDetected); Medtox Reader # READER 4; Methadone Not Detected (NotDetected); Methamphetamine Not Detected (NotDetected); Opiate Screen Not Detected (NotDetected); Oxycodone Screen Not Detected (NotDetected); Phencyclidine (PCP) Not Detected (NotDetected); THC/Cannabinoid Screen Not Detected (NotDetected); Tricyclic Screen Not Detected (NotDetected)
[2020-04-27 22:01] LABS: Medtox Control Line Valid? VALID (VALID)
[2020-04-27 22:06] LABS: Bacteria/HPF Rare-Few HPF (None Seen)
[2020-04-27 23:40] VITALS: BMI 16.8
[2020-04-28] MEDS ORDERED: Diazepam 5 MG TAB PO PRN (00:05)
[2020-04-28] MEDS ORDERED: Diazepam 5 MG TAB PO SCH (00:15)
[2020-04-28] MEDS ORDERED: Ondansetron PF 4 MG/2 ML Vial IVP PRN (02:04)
[2020-04-28] MEDS ORDERED: Melatonin 3 MG TAB PO PRN (02:09)
[2020-04-28] MEDS ORDERED: hydrALAZINE 20 MG/ML VIAL SLOW IVP PRN (02:10)
[2020-04-28 04:57] LABS: Hemoglobin 9.8 g/dL (12.0-16.0); Mean Corpuscular HGB CONC 33.2 g/dL (32.0-36.0); Mean Corpuscular Hemoglobin 32.6 pg (27.0-31.0); Mean Corpuscular Volume 98.1 fL (78.0-98.0); Mean Platelet Volume 6.9 fL (7.4-10.4); Platelet Count 269 thou/uL (130-400); RBC Distribution Width 13.9 % (11.5-14.5); Red Blood Cell (RBC) Count 3.02 mill/uL (4.20-5.40); White Blood Cell (WBC) Count 4.1 thou/uL (4.8-10.8)
[2020-04-28 05:11] LABS: Anion Gap 13 mmol/L (10-20); BUN (Urea Nitrogen) 12 mg/dL (9.8-20.1); Calc. Creatinine Clearance 49 mL/min (70-130); Calcium 8.4 mg/dL (7.8-10.44); Carbon Dioxide 25 mmol/L (23-31); Chloride 89 mmol/L (98-107); Glucose 171 mg/dL (80-115); Potassium 3.5 mmol/L (3.5-5.1); Sodium 123 mmol/L (136-145)
[2020-04-28 05:14] LABS: Lymphocytes 35 % (21-51); MDiff Complete? YES; Metamyelocyte 1 % (0-0); Monocytes 14 % (0-10); Neutrophil 49 % (42-75); Platelet Morphology Comment Appears Adequate; Reactive Lymphocytes 1 % (0-10)
[2020-04-28 05:43] LABS: SARS-CoV-2 PCR by NAA Not Detected (NotDetected)
[2020-04-28] MEDS ORDERED: Folic Acid 1 MG TAB PO SCH (09:00)
[2020-04-28] MEDS ORDERED: Non-Formulary Item 1 EACH (Multivitamin [Multiple Vitamins] 1 EACH Tablet) PO SCH (09:00)
[2020-04-28] MEDS ORDERED: Multivitamin W/ Minerals 1 TAB PO SCH (09:00)
[2020-04-28] MEDS: Enoxaparin Sodium 40 MG/0.4 ML SYRINGE SC SCH (09:09)
[2020-04-28] MEDS: FLUoxetine HCl 20 MG CAP PO SCH (09:10)
[2020-04-28] MEDS: Gabapentin 300 MG CAP PO SCH ×3 (09:10→20:06)
[2020-04-28] MEDS: Thiamine 100 MG TAB PO SCH (09:10)
[2020-04-28] MEDS: Lisinopril 10 MG TAB PO SCH (09:10)
[2020-04-28] MEDS: Aspirin 81 mg Enteric Coated Tablet PO SCH (09:11)
[2020-04-28] MEDS ORDERED: Lice Shampoo 120 ML BOT TOP SCH (09:15)
[2020-04-28] MEDS: Acetaminophen 325 MG TAB PO PRN (20:05)
[2020-04-28] MEDS: Nicotine 21 MG PATCH TOP SCH (20:06)
[2020-04-28] MEDS: traZODone HCl 50 MG TAB PO SCH (20:06)
[2020-04-29 05:10] LABS: Hemoglobin 10.3 g/dL (12.0-16.0); Mean Corpuscular HGB CONC 33.9 g/dL (32.0-36.0); Mean Corpuscular Hemoglobin 34.2 pg (27.0-31.0); Mean Platelet Volume 7.2 fL (7.4-10.4); Platelet Count 291 thou/uL (130-400); RBC Distribution Width 13.9 % (11.5-14.5); Red Blood Cell (RBC) Count 3.01 mill/uL (4.20-5.40); White Blood Cell (WBC) Count 3.8 thou/uL (4.8-10.8)
[2020-04-29 05:28] LABS: Anion Gap 12 mmol/L (10-20); BUN (Urea Nitrogen) 10 mg/dL (9.8-20.1); Calc. Creatinine Clearance 47 mL/min (70-130); Calcium 8.8 mg/dL (7.8-10.44); Carbon Dioxide 26 mmol/L (23-31); Chloride 95 mmol/L (98-107); Glucose 98 mg/dL (80-115); Potassium 4.2 mmol/L (3.5-5.1); Sodium 129 mmol/L (136-145)
[2020-04-29 05:58] LABS: Band 2 % (5-11); Lymphocytes 48 % (21-51); MDiff Complete? YES; Monocytes 8 % (0-10); Neutrophil 42 % (42-75)
[2020-04-29] MEDS: Gabapentin 300 MG CAP PO SCH ×3 (08:13→22:48)
[2020-04-29] MEDS: Aspirin 81 mg Enteric Coated Tablet PO SCH (08:13)
[2020-04-29] MEDS: Lisinopril 10 MG TAB PO SCH (08:13)
[2020-04-29] MEDS: FLUoxetine HCl 20 MG CAP PO SCH (08:13)
[2020-04-29] MEDS: Enoxaparin Sodium 40 MG/0.4 ML SYRINGE SC SCH (08:13)
[2020-04-29] MEDS: Thiamine 100 MG TAB PO SCH (08:15)
[2020-04-29] MEDS: diphenhydrAMINE 25 MG CAP PO PRN ×2 (10:07→16:17)
[2020-04-29] MEDS: Acetaminophen 325 MG TAB PO PRN (10:08)
[2020-04-29] MEDS: traZODone HCl 50 MG TAB PO SCH (22:51)
[2020-04-29] MEDS: Nicotine 21 MG PATCH TOP SCH (22:51)
[2020-04-30 05:14] LABS: Hemoglobin 9.8 g/dL (12.0-16.0); Mean Corpuscular HGB CONC 33.8 g/dL (32.0-36.0); Mean Corpuscular Hemoglobin 34.1 pg (27.0-31.0); Mean Platelet Volume 6.9 fL (7.4-10.4); Platelet Count 239 thou/uL (130-400); Red Blood Cell (RBC) Count 2.86 mill/uL (4.20-5.40); White Blood Cell (WBC) Count 3.1 thou/uL (4.8-10.8)
[2020-04-30 05:31] LABS: Anion Gap 15 mmol/L (10-20); BUN (Urea Nitrogen) 9 mg/dL (9.8-20.1); Calc. Creatinine Clearance 58 mL/min (70-130); Calcium 8.9 mg/dL (7.8-10.44); Carbon Dioxide 24 mmol/L (23-31); Chloride 96 mmol/L (98-107); Glucose 94 mg/dL (80-115); Potassium 4.5 mmol/L (3.5-5.1); Sodium 130 mmol/L (136-145)
[2020-04-30 05:44] LABS: Band 1 % (5-11); Eosinophils 1 % (0-10); Lymphocytes 42 % (21-51); MDiff Complete? YES; Monocytes 12 % (0-10); Neutrophil 42 % (42-75); Reactive Lymphocytes 1 % (0-10)
[2020-04-30] MEDS ORDERED: GUAIFENESIN SF SOLN 200 MG/10 ML UDCUP PO PRN (07:43)
[2020-04-30] MEDS ORDERED: Senokot S 8.6-50 MG TAB PO PRN (07:43)
[2020-04-30] MEDS ORDERED: HYDROcodone/Acetaminophen 5/325 mg Tablet PO PRN (07:43)
[2020-04-30] MEDS ORDERED: Loperamide HCl 2 MG CAP PO PRN (07:43)
[2020-04-30] MEDS ORDERED: Cepastat Lozenges 1 LOZ PO PRN (07:43)
[2020-04-30] MEDS ORDERED: Sodium Chloride 0.65% Nasal 44 ML BOT EA NARE PRN (07:43)
[2020-04-30] MEDS ORDERED: Bisacodyl 5 MG TAB PO PRN (07:43)
[2020-04-30] MEDS ORDERED: Ondansetron ODT 4 MG TAB PO PRN (07:43)
[2020-04-30] MEDS ORDERED: Zolpidem Tartrate 5 MG TAB PO PRN (07:43)
[2020-04-30] MEDS ORDERED: Calcium Carbonate 500 MG ChewTAB PO PRN (07:43)
[2020-04-30] MEDS: Enoxaparin Sodium 40 MG/0.4 ML SYRINGE SC SCH (08:11)
[2020-04-30] MEDS: Gabapentin 300 MG CAP PO SCH ×3 (08:12→20:35)
[2020-04-30] MEDS: Famotidine 20 MG TAB PO SCH ×2 (08:12→20:36)
[2020-04-30] MEDS: FLUoxetine HCl 20 MG CAP PO SCH (08:12)
[2020-04-30] MEDS: Thiamine 100 MG TAB PO SCH (08:12)
[2020-04-30] MEDS: Aspirin 81 mg Enteric Coated Tablet PO SCH (08:12)
[2020-04-30] MEDS: diphenhydrAMINE 25 MG CAP PO PRN ×2 (08:12→15:02)
[2020-04-30] MEDS: Folic Acid 1 MG TAB PO SCH (08:13)
[2020-04-30] MEDS: Multivitamin W/ Minerals 1 TAB PO SCH (08:13)
[2020-04-30] MEDS: Cyanocobalamin (Vitamin B-12) 1,000 MCG TAB PO SCH (08:13)
[2020-04-30] MEDS: Lisinopril 10 MG TAB PO SCH (08:17)
[2020-04-30] MEDS: traZODone HCl 50 MG TAB PO SCH (20:35)
[2020-04-30] MEDS: Acetaminophen 325 MG TAB PO PRN (20:36)
[2020-04-30] MEDS: Nicotine 21 MG PATCH TOP SCH (20:37)
[2020-05-01] MEDS: Gabapentin 300 MG CAP PO SCH (08:50)
[2020-05-01] MEDS: Cyanocobalamin (Vitamin B-12) 1,000 MCG TAB PO SCH (08:50)
[2020-05-01] MEDS: FLUoxetine HCl 20 MG CAP PO SCH (08:50)
[2020-05-01] MEDS: Aspirin 81 mg Enteric Coated Tablet PO SCH (08:50)
[2020-05-01] MEDS: Famotidine 20 MG TAB PO SCH (08:50)
[2020-05-01] MEDS: diphenhydrAMINE 25 MG CAP PO PRN (08:50)
[2020-05-01] MEDS: Multivitamin W/ Minerals 1 TAB PO SCH (08:50)
[2020-05-01] MEDS: Folic Acid 1 MG TAB PO SCH (08:50)
[2020-05-01] MEDS: Lisinopril 10 MG TAB PO SCH (08:51)
[2020-05-01] MEDS: Thiamine 100 MG TAB PO SCH (08:52)
[2020-05-01] MEDS: Enoxaparin Sodium 40 MG/0.4 ML SYRINGE SC SCH (08:52)
[2020-05-01 12:47] VITALS: BP 119/59; TEMP 98.1
== END 2020-05-01 13:06 | disposition home or self-care (01) | DRG 641 ==
LOC: ERS 17:40 → 2SW 21:32 → OBSVTOIN 04-29 08:50
PROVIDERS: ADMIT Internal Medicine; ATTEND Internal Medicine
PROC: HZ2ZZZZ Detoxification Services for Substance Abuse Treatment (ICD-10-PCS; principal; 2020-04-29)
DX: E87.1 Hypo-osmolality and hyponatremia (principal); E44.0 Moderate protein-calorie malnutrition; Z68.1 Body mass index [BMI] 19.9 or less, adult; F10.10 Alcohol abuse, uncomplicated; F17.210 Nicotine dependence, cigarettes, uncomplicated; B85.0 Pediculosis due to Pediculus humanus capitis; E86.0 Dehydration; D53.9 Nutritional anemia, unspecified; F41.9 Anxiety disorder, unspecified; F32.9 Major depressive disorder, single episode, unspecified; I10 Essential (primary) hypertension; Z20.822 Contact with and (suspected) exposure to COVID-19; Y90.2 Blood alcohol level of 40-59 mg/100 ml; Z88.1 Allergy status to other antibiotic agents; Z88.8 Allergy status to other drugs, medicaments and biological substances; Z79.82 Long term (current) use of aspirin; Z90.49 Acquired absence of other specified parts of digestive tract; Z71.6 Tobacco abuse counseling; Z71.41 Alcohol abuse counseling and surveillance of alcoholic
CPT/HCPCS: 36415; 71045; 80048; 80053; 80306; 80307; 81003; 81015; 83690; 83930; 83935; 84300; 85025; 87635; 90471; 90732; 93005; 96366; 96368; 96372; 96376; G0009; G0378; J1650; J2405; J3411; J3475; J3490; J7042; Q0163; U0003; U0005

== ENCOUNTER 2020-05-18 23:17 | Emergency (ER) | payer MEDICARE ==
[2020-05-18] MEDS ORDERED: Lisinopril 10 MG TAB ONE (23:44)
== END 2020-05-19 00:01 | disposition left against medical advice (07) ==
LOC: ERS 23:17
DX: F10.20 Alcohol dependence, uncomplicated (principal); I10 Essential (primary) hypertension; F17.210 Nicotine dependence, cigarettes, uncomplicated; Z79.899 Other long term (current) drug therapy
CPT/HCPCS: 99284

== ENCOUNTER 2020-06-05 00:04 | Emergency (ER) | payer MEDICARE | END 2020-06-05 03:44 | disposition home or self-care (01) | LOC: ERS 00:04 | DX: S42.202A Unspecified fracture of upper end of left humerus, initial encounter for closed fracture (principal); S22.41XA Multiple fractures of ribs, right side, initial encounter for closed fracture; I10 Essential (primary) hypertension; F17.210 Nicotine dependence, cigarettes, uncomplicated; Z79.899 Other long term (current) drug therapy; W19.XXXA Unspecified fall, initial encounter | CPT/HCPCS: 70450; 71045; 71250; 72125 ==

== ENCOUNTER 2020-06-07 18:19 | Inpatient (IN) | payer MEDICARE ==
[2020-06-07 18:52] LABS: Hemoglobin 8.5 g/dL (12.0-16.0); Mean Corpuscular Hemoglobin 31.2 pg (27.0-31.0); Mean Corpuscular Volume 91.8 fL (78.0-98.0); Mean Platelet Volume 6.8 fL (7.4-10.4); Platelet Count 405 thou/uL (130-400); RBC Distribution Width 15.5 % (11.5-14.5); Red Blood Cell (RBC) Count 2.73 mill/uL (4.20-5.40); White Blood Cell (WBC) Count 5.5 thou/uL (4.8-10.8)
[2020-06-07 19:14] LABS: ALT (SGPT) 21 U/L (8-55); AST (SGOT) 44 U/L (5-34); Albumin 3.6 g/dL (3.4-4.8); Alkaline Phosphatase 83 U/L (40-110); Anion Gap 15 mmol/L (10-20); BUN (Urea Nitrogen) 8 mg/dL (9.8-20.1); Bilirubin, Total 0.4 mg/dL (0.2-1.2); Calc. Creatinine Clearance 0 mL/min (70-130); Calcium 9.1 mg/dL (7.8-10.44); Carbon Dioxide 23 mmol/L (23-31); Chloride 91 mmol/L (98-107); Glucose 107 mg/dL (80-115); Protein, Total 6.6 g/dL (5.8-8.1); Sodium 125 mmol/L (136-145)
[2020-06-07 19:15] LABS: Anisocytosis SLIGHT = 6-15 cells (100X) (0-5/hpf); Band 2 % (5-11); Hypochromia SLIGHT = 6-15 cells (100X) (0-5/hpf); Lymphocytes 14 % (21-51); MDiff Complete? YES; Metamyelocyte 1 % (0-0); Monocytes 7 % (0-10); Myelocyte 2 % (0-0); Neutrophil 74 % (42-75); Platelet Morphology Comment Appears Increased; Polychromasia MODERATE = 3-4 cells (100X) (0-2/hpf)
[2020-06-07 19:25] LABS: Acetaminophen Less than 6.0 mcg/mL (10.0-30.0); Alcohol 61 mg/dL (Less than 10); Salicylate Less than 8.0 mg/dL (15.0-30.0)
[2020-06-07] MEDS ORDERED: chlordiazePOXIDE HCl 25 MG CAP ONE (20:07)
[2020-06-07 20:31] LABS: Bilirubin Negative (Negative); Blood, Urine Negative (Negative); Clarity Clear (Clear); Glucose, Urine (Dipstick) Normal (Negative); Ketone, Urine Negative (Negative); Leukocyte Negative Leu/uL (Negative); Nitrite Negative (Negative); Protein, Urine (Dipstick) Negative (Neg-Trace); Specific Gravity, Urine 1.003 (1.002-1.036); Urobilinogen Normal mg/dL (Less than 2)
[2020-06-07 20:41] LABS: Amphetamine Not Detected (NotDetected); Barbiturates Screen Not Detected (NotDetected); Benzodiazepine Screen Not Detected (NotDetected); Cocaine Metabolite Screen Not Detected (NotDetected); Medtox Control Line Valid? VALID (VALID); Medtox Reader # READER 4; Methadone Not Detected (NotDetected); Methamphetamine Not Detected (NotDetected); Opiate Screen Not Detected (NotDetected); Oxycodone Screen Not Detected (NotDetected); Phencyclidine (PCP) Not Detected (NotDetected); THC/Cannabinoid Screen Not Detected (NotDetected); Tricyclic Screen Not Detected (NotDetected)
[2020-06-07] MEDS ORDERED: Folic Acid 1 MG, Multivitamins, Adult 10 ML in Dextrose 5 %-0.45 % NaCl 1,000 ML IV SCH (21:45)
[2020-06-08] MEDS: Thiamine HCl 200 MG/2 ML VIAL SLOW IVP SCH ×2 (00:12→00:43)
[2020-06-08] MEDS ORDERED: Lorazepam 2 MG/ML VIAL SLOW IVP PRN (00:18)
[2020-06-08] MEDS ORDERED: Ondansetron PF 4 MG/2 ML Vial IVP PRN (00:39)
[2020-06-08] MEDS ORDERED: Ondansetron ODT 4 MG TAB PO PRN (00:39)
[2020-06-08] MEDS: Acetaminophen 500 MG TAB PO PRN ×2 (00:45→20:33)
[2020-06-08] MEDS ORDERED: traZODone HCl 50 MG TAB ONE (02:54)
[2020-06-08 06:11] LABS: Hemoglobin 8.5 g/dL (12.0-16.0); Mean Corpuscular HGB CONC 33.7 g/dL (32.0-36.0); Mean Corpuscular Hemoglobin 31.2 pg (27.0-31.0); Mean Corpuscular Volume 92.8 fL (78.0-98.0); Mean Platelet Volume 7.3 fL (7.4-10.4); Platelet Count 395 thou/uL (130-400); RBC Distribution Width 15.4 % (11.5-14.5); Red Blood Cell (RBC) Count 2.74 mill/uL (4.20-5.40); White Blood Cell (WBC) Count 4.9 thou/uL (4.8-10.8)
[2020-06-08 06:21] LABS: Anion Gap 12 mmol/L (10-20); BUN (Urea Nitrogen) 11 mg/dL (9.8-20.1); Calc. Creatinine Clearance 53 mL/min (70-130); Carbon Dioxide 25 mmol/L (23-31); Chloride 95 mmol/L (98-107); Potassium 4.2 mmol/L (3.5-5.1); Sodium 128 mmol/L (136-145)
[2020-06-08 06:22] LABS: ALT (SGPT) 17 U/L (8-55); AST (SGOT) 35 U/L (5-34); Albumin 3.3 g/dL (3.4-4.8); Alkaline Phosphatase 78 U/L (40-110); Bilirubin, Total 0.4 mg/dL (0.2-1.2); Calcium 8.9 mg/dL (7.8-10.44); Globulin 2.7 g/dL (2.4-3.5); Glucose 143 mg/dL (80-115)
[2020-06-08 06:35] LABS: SARS-CoV-2 PCR by NAA Not Detected (NotDetected)
[2020-06-08 06:43] LABS: Band 3 % (5-11); Lymphocytes 20 % (21-51); MDiff Complete? YES; Monocytes 27 % (0-10); Neutrophil 50 % (42-75); Platelet Morphology Comment Appears Adequate
[2020-06-08] MEDS: Cyanocobalamin (Vitamin B-12) 1,000 MCG TAB PO SCH (09:48)
[2020-06-08] MEDS: Famotidine 20 MG TAB PO SCH ×2 (09:48→20:33)
[2020-06-08] MEDS: FLUoxetine HCl 20 MG CAP PO SCH (09:48)
[2020-06-08] MEDS: Folic Acid 1 MG TAB PO SCH (09:49)
[2020-06-08] MEDS: Gabapentin 300 MG CAP PO SCH ×3 (09:49→20:31)
[2020-06-08] MEDS: Thiamine 100 MG TAB PO SCH (09:49)
[2020-06-08] MEDS ORDERED: Thiamine HCl 200 MG/2 ML VIAL SLOW IVP SCH (21:00)
[2020-06-08] MEDS ORDERED: Multivitamins, Adult 10 ML, Folic Acid 1 MG in Dextrose 5 %-0.45 % NaCl 1,000 ML IV SCH (21:00)
[2020-06-09] MEDS: traZODone HCl 50 MG TAB PO PRN (00:18)
[2020-06-09 07:06] LABS: Band 2 % (5-11); Hemoglobin 8.7 g/dL (12.0-16.0); Lymphocytes 19 % (21-51); MDiff Complete? YES; Mean Corpuscular HGB CONC 33.3 g/dL (32.0-36.0); Mean Corpuscular Hemoglobin 31.2 pg (27.0-31.0); Mean Corpuscular Volume 93.7 fL (78.0-98.0); Mean Platelet Volume 7.1 fL (7.4-10.4); Metamyelocyte 1 % (0-0); Monocytes 17 % (0-10); Myelocyte 1 % (0-0); Neutrophil 58 % (42-75); Platelet Count 373 thou/uL (130-400); Platelet Morphology Comment Appears Adequate; RBC Distribution Width 15.9 % (11.5-14.5); Reactive Lymphocytes 1 % (0-10); Red Blood Cell (RBC) Count 2.79 mill/uL (4.20-5.40); White Blood Cell (WBC) Count 5.3 thou/uL (4.8-10.8)
[2020-06-09 07:08] LABS: Anion Gap 13 mmol/L (10-20); BUN (Urea Nitrogen) 9 mg/dL (9.8-20.1); Calc. Creatinine Clearance 53 mL/min (70-130); Carbon Dioxide 26 mmol/L (23-31); Chloride 98 mmol/L (98-107); Glucose 146 mg/dL (80-115); Iron 28 ug/dL (50-170); Iron 30 ug/dL (50-170); Iron Binding Capacity, Total 383 mcg/dL (265-497); Iron Binding Capacity, Total 394 mcg/dL (265-497); Potassium 4.3 mmol/L (3.5-5.1); Sodium 133 mmol/L (136-145)
[2020-06-09] MEDS: Multivit, Therapeutic 1 TAB PO SCH (08:26)
[2020-06-09] MEDS: FLUoxetine HCl 20 MG CAP PO SCH (08:26)
[2020-06-09] MEDS: Nicotine 21 MG PATCH TOP SCH (08:26)
[2020-06-09] MEDS: Gabapentin 300 MG CAP PO SCH ×3 (08:26→20:53)
[2020-06-09] MEDS: Folic Acid 1 MG TAB PO SCH (08:27)
[2020-06-09] MEDS: Cyanocobalamin (Vitamin B-12) 1,000 MCG TAB PO SCH (08:27)
[2020-06-09] MEDS: Famotidine 20 MG TAB PO SCH ×2 (08:27→20:53)
[2020-06-09] MEDS: Thiamine 100 MG TAB PO SCH (08:27)
[2020-06-09] MEDS: Acetaminophen 500 MG TAB PO PRN (08:55)
[2020-06-09] MEDS ORDERED: Lisinopril 5 MG TAB PO SCH (09:00)
[2020-06-09] MEDS: HYDROcodone/Acetaminophen 5/325 mg Tablet PO PRN ×2 (14:34→18:23)
[2020-06-09] MEDS ORDERED: ALPRAZolam 1 MG TAB PO SCH (21:15)
[2020-06-10] MEDS: traZODone HCl 50 MG TAB PO PRN ×2 (00:23→23:23)
[2020-06-10 05:12] LABS: Band 1 % (5-11); Hemoglobin 7.9 g/dL (12.0-16.0); Lymphocytes 22 % (21-51); MDiff Complete? YES; Mean Corpuscular HGB CONC 32.3 g/dL (32.0-36.0); Mean Corpuscular Hemoglobin 30.6 pg (27.0-31.0); Mean Corpuscular Volume 94.9 fL (78.0-98.0); Mean Platelet Volume 6.8 fL (7.4-10.4); Monocytes 27 % (0-10); Myelocyte 1 % (0-0); Neutrophil 48 % (42-75); Platelet Count 411 thou/uL (130-400); RBC Distribution Width 16.4 % (11.5-14.5); Reactive Lymphocytes 1 % (0-10); Red Blood Cell (RBC) Count 2.59 mill/uL (4.20-5.40); White Blood Cell (WBC) Count 4.7 thou/uL (4.8-10.8)
[2020-06-10 05:43] LABS: Anion Gap 12 mmol/L (10-20); BUN (Urea Nitrogen) 9 mg/dL (9.8-20.1); Calc. Creatinine Clearance 58 mL/min (70-130); Calcium 8.9 mg/dL (7.8-10.44); Carbon Dioxide 29 mmol/L (23-31); Chloride 92 mmol/L (98-107); Glucose 116 mg/dL (80-115); Potassium 4.2 mmol/L (3.5-5.1); Sodium 129 mmol/L (136-145)
[2020-06-10] MEDS: HYDROcodone/Acetaminophen 5/325 mg Tablet PO PRN ×4 (06:13→23:23)
[2020-06-10] MEDS ORDERED: Ferrous Gluconate 324 MG TAB PO SCH (08:00)
[2020-06-10] MEDS: Lisinopril 20 MG TAB PO SCH (08:44)
[2020-06-10] MEDS: Multivit, Therapeutic 1 TAB PO SCH (08:44)
[2020-06-10] MEDS: Cyanocobalamin (Vitamin B-12) 1,000 MCG TAB PO SCH (08:44)
[2020-06-10] MEDS: Gabapentin 300 MG CAP PO SCH ×3 (08:44→19:35)
[2020-06-10] MEDS: FLUoxetine HCl 20 MG CAP PO SCH (08:44)
[2020-06-10] MEDS: Folic Acid 1 MG TAB PO SCH (08:44)
[2020-06-10] MEDS: Thiamine 100 MG TAB PO SCH (08:44)
[2020-06-10] MEDS: Famotidine 20 MG TAB PO SCH ×2 (08:44→19:35)
[2020-06-10] MEDS: Nicotine 21 MG PATCH TOP SCH (08:45)
[2020-06-10] MEDS: Acetaminophen 500 MG TAB PO PRN (16:37)
[2020-06-10] MEDS: Ferrous Gluconate 324 MG TAB PO SCH (19:35)
[2020-06-10] MEDS ORDERED: PUMPKIN SEED EXTRACT PO PRN (21:56)
[2020-06-10] MEDS ORDERED: SOY GERM PO PRN (21:56)
[2020-06-10] MEDS: Loratadine 10 MG TAB PO PRN (22:23)
[2020-06-11] MEDS: HYDROcodone/Acetaminophen 5/325 mg Tablet PO PRN ×2 (06:12→23:20)
[2020-06-11 07:42] LABS: Hemoglobin 8.2 g/dL (12.0-16.0); Mean Corpuscular HGB CONC 32.6 g/dL (32.0-36.0); Mean Corpuscular Hemoglobin 30.9 pg (27.0-31.0); Mean Corpuscular Volume 94.7 fL (78.0-98.0); Mean Platelet Volume 7.1 fL (7.4-10.4); Platelet Count 430 thou/uL (130-400); RBC Distribution Width 16.5 % (11.5-14.5); Red Blood Cell (RBC) Count 2.66 mill/uL (4.20-5.40); White Blood Cell (WBC) Count 4.5 thou/uL (4.8-10.8)
[2020-06-11 07:51] LABS: Anion Gap 10 mmol/L (10-20); BUN (Urea Nitrogen) 11 mg/dL (9.8-20.1); Calc. Creatinine Clearance 57 mL/min (70-130); Calcium 9.6 mg/dL (7.8-10.44); Carbon Dioxide 29 mmol/L (23-31); Chloride 93 mmol/L (98-107); Glucose 112 mg/dL (80-115); Potassium 4.1 mmol/L (3.5-5.1); Sodium 128 mmol/L (136-145)
[2020-06-11 08:01] LABS: Anisocytosis SLIGHT = 6-15 cells (100X) (0-5/hpf); Hypochromia SLIGHT = 6-15 cells (100X) (0-5/hpf); Lymphocytes 24 % (21-51); MDiff Complete? YES; Monocytes 24 % (0-10); Neutrophil 52 % (42-75); Platelet Morphology Comment Appears Increased
[2020-06-11] MEDS: Famotidine 20 MG TAB PO SCH (09:02)
[2020-06-11] MEDS: Lisinopril 20 MG TAB PO SCH (09:02)
[2020-06-11] MEDS: Cyanocobalamin (Vitamin B-12) 1,000 MCG TAB PO SCH (09:02)
[2020-06-11] MEDS: Gabapentin 300 MG CAP PO SCH ×3 (09:02→20:28)
[2020-06-11] MEDS: Multivit, Therapeutic 1 TAB PO SCH (09:02)
[2020-06-11] MEDS: FLUoxetine HCl 20 MG CAP PO SCH (09:02)
[2020-06-11] MEDS: Ferrous Gluconate 324 MG TAB PO SCH ×2 (09:02→20:28)
[2020-06-11] MEDS: Folic Acid 1 MG TAB PO SCH (09:02)
[2020-06-11] MEDS: Aspirin 81 mg Enteric Coated Tablet PO SCH (09:02)
[2020-06-11] MEDS: Thiamine 100 MG TAB PO SCH (09:02)
[2020-06-11] MEDS: Acetaminophen 500 MG TAB PO PRN ×3 (09:09→22:22)
[2020-06-11] MEDS: Nicotine 21 MG PATCH TOP SCH (09:12)
[2020-06-11] MEDS ORDERED: Polyethylene Glycol 3350 17 GM Packet PO PRN (12:45)
[2020-06-11] MEDS ORDERED: Senokot S 8.6-50 MG TAB PO SCH (13:00)
[2020-06-11] MEDS: Lorazepam 2 MG/ML VIAL SLOW IVP PRN (13:08)
[2020-06-11] MEDS: Senokot S 8.6-50 MG TAB PO SCH (20:28)
[2020-06-11] MEDS: Loratadine 10 MG TAB PO PRN (22:21)
[2020-06-11] MEDS: traZODone HCl 50 MG TAB PO PRN (22:22)
[2020-06-12] MEDS: HYDROcodone/Acetaminophen 5/325 mg Tablet PO PRN ×2 (06:33→20:11)
[2020-06-12 06:35] LABS: Band 3 % (5-11); Hemoglobin 8.3 g/dL (12.0-16.0); Lymphocytes 20 % (21-51); MDiff Complete? YES; Mean Corpuscular HGB CONC 31.8 g/dL (32.0-36.0); Mean Corpuscular Hemoglobin 30.1 pg (27.0-31.0); Mean Corpuscular Volume 94.6 fL (78.0-98.0); Monocytes 34 % (0-10); Neutrophil 43 % (42-75); Platelet Count 491 thou/uL (130-400); Platelet Morphology Comment Appears Increased; RBC Distribution Width 17.1 % (11.5-14.5); Red Blood Cell (RBC) Count 2.77 mill/uL (4.20-5.40); White Blood Cell (WBC) Count 4.6 thou/uL (4.8-10.8)
[2020-06-12 06:41] LABS: Anion Gap 16 mmol/L (10-20); BUN (Urea Nitrogen) 16 mg/dL (9.8-20.1); Calc. Creatinine Clearance 53 mL/min (70-130); Calcium 9.9 mg/dL (7.8-10.44); Carbon Dioxide 26 mmol/L (23-31); Chloride 93 mmol/L (98-107); Glucose 151 mg/dL (80-115); Sodium 131 mmol/L (136-145)
[2020-06-12] MEDS: FLUoxetine HCl 20 MG CAP PO SCH (08:51)
[2020-06-12] MEDS: Senokot S 8.6-50 MG TAB PO SCH ×2 (08:51→20:12)
[2020-06-12] MEDS: Folic Acid 1 MG TAB PO SCH (08:51)
[2020-06-12] MEDS: Gabapentin 300 MG CAP PO SCH ×3 (08:51→20:13)
[2020-06-12] MEDS: Aspirin 81 mg Enteric Coated Tablet PO SCH (08:51)
[2020-06-12] MEDS: Thiamine 100 MG TAB PO SCH (08:51)
[2020-06-12] MEDS: Ferrous Gluconate 324 MG TAB PO SCH ×2 (08:51→20:13)
[2020-06-12] MEDS: Lisinopril 20 MG TAB PO SCH (08:52)
[2020-06-12] MEDS: Nicotine 21 MG PATCH TOP SCH (08:52)
[2020-06-12] MEDS: Multivit, Therapeutic 1 TAB PO SCH (08:52)
[2020-06-12] MEDS: Cyanocobalamin (Vitamin B-12) 1,000 MCG TAB PO SCH (08:52)
[2020-06-12] MEDS: Acetaminophen 500 MG TAB PO PRN (11:50)
[2020-06-12] MEDS: Lorazepam 2 MG/ML VIAL SLOW IVP PRN ×2 (12:54→18:15)
[2020-06-12] MEDS: traZODone HCl 50 MG TAB PO PRN (22:49)
[2020-06-13 05:57] LABS: Anion Gap 14 mmol/L (10-20); BUN (Urea Nitrogen) 17 mg/dL (9.8-20.1); Calc. Creatinine Clearance 55 mL/min (70-130); Calcium 9.9 mg/dL (7.8-10.44); Carbon Dioxide 27 mmol/L (23-31); Chloride 96 mmol/L (98-107); Glucose 122 mg/dL (80-115); Potassium 4.6 mmol/L (3.5-5.1); Sodium 132 mmol/L (136-145)
[2020-06-13 06:11] LABS: Hemoglobin 8.9 g/dL (12.0-16.0); Mean Corpuscular HGB CONC 32.6 g/dL (32.0-36.0); Mean Corpuscular Hemoglobin 30.7 pg (27.0-31.0); Mean Corpuscular Volume 94.2 fL (78.0-98.0); Platelet Count 536 thou/uL (130-400); Red Blood Cell (RBC) Count 2.89 mill/uL (4.20-5.40); White Blood Cell (WBC) Count 5.1 thou/uL (4.8-10.8)
[2020-06-13] MEDS: HYDROcodone/Acetaminophen 5/325 mg Tablet PO PRN ×3 (06:48→19:56)
[2020-06-13 08:48] LABS: Band 6 % (5-11); Lymphocytes 19 % (21-51); MDiff Complete? YES; Metamyelocyte 1 % (0-0); Monocytes 19 % (0-10); Myelocyte 1 % (0-0); Neutrophil 50 % (42-75); Platelet Morphology Comment Appears Increased; Polychromasia SLIGHT = 2-3 cells (100X) (0-2/hpf); Reactive Lymphocytes 2 % (0-10)
[2020-06-13] MEDS: Multivit, Therapeutic 1 TAB PO SCH (09:07)
[2020-06-13] MEDS: Aspirin 81 mg Enteric Coated Tablet PO SCH (09:07)
[2020-06-13] MEDS: FLUoxetine HCl 20 MG CAP PO SCH (09:07)
[2020-06-13] MEDS: Senokot S 8.6-50 MG TAB PO SCH ×2 (09:07→19:52)
[2020-06-13] MEDS: Lisinopril 20 MG TAB PO SCH (09:07)
[2020-06-13] MEDS: Ferrous Gluconate 324 MG TAB PO SCH ×2 (09:07→19:52)
[2020-06-13] MEDS: Thiamine 100 MG TAB PO SCH (09:07)
[2020-06-13] MEDS: Cyanocobalamin (Vitamin B-12) 1,000 MCG TAB PO SCH (09:08)
[2020-06-13] MEDS: Gabapentin 300 MG CAP PO SCH ×3 (09:08→19:51)
[2020-06-13] MEDS: Folic Acid 1 MG TAB PO SCH (09:08)
[2020-06-13] MEDS: Nicotine 21 MG PATCH TOP SCH (09:09)
[2020-06-13] MEDS ORDERED: Lorazepam 0.5 MG TAB PO PRN (14:22)
[2020-06-13 14:40] VITALS: BMI 18.7
[2020-06-13] MEDS: Loratadine 10 MG TAB PO PRN (19:56)
[2020-06-13] MEDS: Acetaminophen 500 MG TAB PO PRN (22:33)
[2020-06-13] MEDS: traZODone HCl 50 MG TAB PO PRN (22:34)
[2020-06-14] MEDS: Lisinopril 20 MG TAB PO SCH (08:26)
[2020-06-14] MEDS: Gabapentin 300 MG CAP PO SCH ×2 (08:26→14:55)
[2020-06-14] MEDS: Cyanocobalamin (Vitamin B-12) 1,000 MCG TAB PO SCH (08:26)
[2020-06-14] MEDS: Folic Acid 1 MG TAB PO SCH (08:26)
[2020-06-14] MEDS: Ferrous Gluconate 324 MG TAB PO SCH (08:26)
[2020-06-14] MEDS: Thiamine 100 MG TAB PO SCH (08:26)
[2020-06-14] MEDS: FLUoxetine HCl 20 MG CAP PO SCH (08:26)
[2020-06-14] MEDS: Multivit, Therapeutic 1 TAB PO SCH (08:28)
[2020-06-14] MEDS: Senokot S 8.6-50 MG TAB PO SCH (08:28)
[2020-06-14] MEDS: Nicotine 21 MG PATCH TOP SCH (08:28)
[2020-06-14] MEDS: Aspirin 81 mg Enteric Coated Tablet PO SCH (08:28)
[2020-06-14] MEDS: HYDROcodone/Acetaminophen 5/325 mg Tablet PO PRN ×2 (08:29→14:56)
[2020-06-14 08:46] VITALS: TEMP 98.7
[2020-06-14] MEDS ORDERED: Lorazepam 0.5 MG TAB ONE (11:46)
[2020-06-14] MEDS ORDERED: Acetaminophen 500 MG TAB ONE (11:47)
[2020-06-14] MEDS ORDERED: Loratadine 10 MG TAB ONE (11:47)
[2020-06-14 14:08] VITALS: BP 127/64
== END 2020-06-14 16:30 | DRG 641 ==
LOC: ERS 18:19 → 2NO 21:34 → UNDOADMOB 21:34 → 2NO 06-08 00:39 → OBSVTOIN 06-08 11:21 → INTOOBSV 06-08 11:21 → ONC 06-10 18:23
PROVIDERS: ADMIT Family Medicine; ATTEND Hospitalist
DX: E87.1 Hypo-osmolality and hyponatremia (principal); S42.302A Unspecified fracture of shaft of humerus, left arm, initial encounter for closed fracture; E44.0 Moderate protein-calorie malnutrition; Z68.1 Body mass index [BMI] 19.9 or less, adult; I10 Essential (primary) hypertension; Z96.641 Presence of right artificial hip joint; F17.210 Nicotine dependence, cigarettes, uncomplicated; R62.7 Adult failure to thrive; F10.10 Alcohol abuse, uncomplicated; F41.9 Anxiety disorder, unspecified; F32.9 Major depressive disorder, single episode, unspecified; D53.9 Nutritional anemia, unspecified; Z79.82 Long term (current) use of aspirin; D50.9 Iron deficiency anemia, unspecified; D72.819 Decreased white blood cell count, unspecified; D47.3 Essential (hemorrhagic) thrombocythemia; K59.00 Constipation, unspecified; S42.211D Unspecified displaced fracture of surgical neck of right humerus, subsequent encounter for fracture with routine healing; Z90.49 Acquired absence of other specified parts of digestive tract; Z88.8 Allergy status to other drugs, medicaments and biological substances
CPT/HCPCS: 36415; 51701; 70450; 71045; 71250; 72125; 80048; 80053; 80306; 80307; 81003; 83540; 83550; 83735; 84484; 85025; 87635; 93005; 96365; G0378; J2060; J2405; J3411; J7042; Q0162; U0003; U0005

== ENCOUNTER 2020-06-19 20:27 | Emergency (ER) | payer MEDICARE | END 2020-06-19 21:56 | disposition home or self-care (01) | LOC: ERS 20:27 | DX: S42.202D Unspecified fracture of upper end of left humerus, subsequent encounter for fracture with routine healing (principal); Z79.899 Other long term (current) drug therapy; I10 Essential (primary) hypertension; F17.210 Nicotine dependence, cigarettes, uncomplicated | CPT/HCPCS: 99281 ==

== ENCOUNTER 2020-06-27 01:01 | Emergency (ER) | payer MEDICARE ==
[2020-06-27] MEDS ORDERED: Ketorolac Tromethamine 30 MG/ML VIAL ONE (01:24)
== END 2020-06-27 02:02 | disposition home or self-care (01) ==
LOC: ERS 01:01
DX: S42.212A Unspecified displaced fracture of surgical neck of left humerus, initial encounter for closed fracture (principal); I10 Essential (primary) hypertension; F17.210 Nicotine dependence, cigarettes, uncomplicated; Z79.899 Other long term (current) drug therapy; X58.XXXA Exposure to other specified factors, initial encounter
CPT/HCPCS: 96372; J1885

== ENCOUNTER 2020-06-27 18:19 | Emergency (ER) | payer MEDICARE | END 2020-06-27 19:20 | disposition home or self-care (01) | LOC: ERS 18:19 | DX: M25.512 Pain in left shoulder (principal); S42.212D Unspecified displaced fracture of surgical neck of left humerus, subsequent encounter for fracture with routine healing; I10 Essential (primary) hypertension; F17.210 Nicotine dependence, cigarettes, uncomplicated; X58.XXXD Exposure to other specified factors, subsequent encounter | CPT/HCPCS: 96372; 99283; J1885 ==

== ENCOUNTER 2020-06-29 21:28 | Emergency (ER) | payer MEDICARE ==
[2020-06-29] MEDS ORDERED: Ibuprofen 200 MG TAB ONE (22:09)
== END 2020-06-29 22:17 | disposition home or self-care (01) ==
LOC: ERS 21:28
DX: M25.512 Pain in left shoulder (principal); S42.211D Unspecified displaced fracture of surgical neck of right humerus, subsequent encounter for fracture with routine healing; I10 Essential (primary) hypertension; F17.210 Nicotine dependence, cigarettes, uncomplicated; F10.20 Alcohol dependence, uncomplicated
CPT/HCPCS: 99281

== ENCOUNTER 2020-06-30 18:08 | Emergency (ER) | payer MEDICARE | END 2020-06-30 19:48 | disposition left against medical advice (07) | LOC: ERS 18:08 | DX: Z53.21 Procedure and treatment not carried out due to patient leaving prior to being seen by health care provider (principal) ==

== ENCOUNTER 2020-07-01 15:50 | Emergency (ER) | payer MEDICARE | END 2020-07-01 16:51 | disposition home or self-care (01) | LOC: ERS 15:50 | DX: G89.29 Other chronic pain (principal); M79.602 Pain in left arm; R19.7 Diarrhea, unspecified; I10 Essential (primary) hypertension | CPT/HCPCS: 99281 ==

== ENCOUNTER 2020-07-02 18:51 | Inpatient (IN) | payer MEDICARE ==
[2020-07-02 19:43] LABS: Hemoglobin 9.1 g/dL (12.0-16.0); Mean Corpuscular Hemoglobin 31.3 pg (27.0-31.0); Mean Corpuscular Volume 92.3 fL (78.0-98.0); Mean Platelet Volume 6.8 fL (7.4-10.4); Platelet Count 306 thou/uL (130-400); RBC Distribution Width 16.6 % (11.5-14.5); Red Blood Cell (RBC) Count 2.89 mill/uL (4.20-5.40); White Blood Cell (WBC) Count 3.3 thou/uL (4.8-10.8)
[2020-07-02] MEDS ORDERED: Thiamine HCl 200 MG/2 ML VIAL SLOW IVP SCH (20:00)
[2020-07-02] MEDS ORDERED: Folic Acid 1 MG, Multivitamins, Adult 10 ML in Dextrose 5 %-0.45 % NaCl 1,000 ML IV SCH (20:00)
[2020-07-02 20:05] LABS: ALT (SGPT) 13 U/L (8-55); AST (SGOT) 29 U/L (5-34); Albumin 3.9 g/dL (3.4-4.8); Alcohol 193 mg/dL (Less than 10); Alkaline Phosphatase 86 U/L (40-110); Anion Gap 15 mmol/L (10-20); BUN (Urea Nitrogen) 7 mg/dL (9.8-20.1); Band 4 % (5-11); Bilirubin, Total 0.3 mg/dL (0.2-1.2); Calc. Creatinine Clearance 0 mL/min (70-130); Carbon Dioxide 23 mmol/L (23-31); Chloride 87 mmol/L (98-107); Globulin 2.7 g/dL (2.4-3.5); Glucose 115 mg/dL (80-115); Hypochromia SLIGHT = 6-15 cells (100X) (0-5/hpf); Lymphocytes 24 % (21-51); MDiff Complete? YES; Monocytes 18 % (0-10); Neutrophil 54 % (42-75); Platelet Morphology Comment Appears Adequate; Potassium 3.9 mmol/L (3.5-5.1); Protein, Total 6.6 g/dL (5.8-8.1); Salicylate Less than 8.0 mg/dL (15.0-30.0); Sodium 121 mmol/L (136-145)
[2020-07-02 20:22] LABS: Syphilis Antibody Nonreactive (Nonreactive)
[2020-07-02] MEDS ORDERED: Dexamethasone 10 MG/ML VIAL ONE (20:28)
[2020-07-02 21:11] LABS: Bilirubin Negative (Negative); Blood, Urine Trace (Negative); Clarity Clear (Clear); Glucose, Urine (Dipstick) Normal (Negative); Ketone, Urine Negative (Negative); Leukocyte Negative Leu/uL (Negative); Nitrite Negative (Negative); Protein, Urine (Dipstick) Negative (Neg-Trace); Specific Gravity, Urine 1.009 (1.002-1.036); Urobilinogen Normal mg/dL (Less than 2)
[2020-07-02] MEDS ORDERED: Ondansetron PF 4 MG/2 ML Vial IVP PRN (21:14)
[2020-07-02] MEDS ORDERED: Bisacodyl 5 MG TAB PO PRN (21:14)
[2020-07-02] MEDS ORDERED: Acetaminophen 325 MG TAB PO PRN (21:14)
[2020-07-02] MEDS ORDERED: HYDROcodone/Acetaminophen 5/325 mg Tablet PO PRN (21:14)
[2020-07-02 21:15] LABS: Amphetamine Not Detected (NotDetected); Barbiturates Screen Not Detected (NotDetected); Benzodiazepine Screen Not Detected (NotDetected); Cocaine Metabolite Screen Not Detected (NotDetected); Medtox Control Line Valid? VALID (VALID); Medtox Reader # READER 4; Methadone Not Detected (NotDetected); Methamphetamine Not Detected (NotDetected); Opiate Screen Not Detected (NotDetected); Oxycodone Screen Not Detected (NotDetected); Phencyclidine (PCP) Not Detected (NotDetected); THC/Cannabinoid Screen Not Detected (NotDetected); Tricyclic Screen Not Detected (NotDetected)
[2020-07-02] MEDS ORDERED: Lorazepam 2 MG/ML VIAL SLOW IVP PRN (21:26)
[2020-07-02] MEDS ORDERED: Lorazepam 2 MG/ML VIAL ONE (21:28)
[2020-07-02] MEDS ORDERED: Sodium Chloride 0.9% 1,000 ML IV SCH (21:45)
[2020-07-02] MEDS ORDERED: Sodium Chloride 1 GM TAB PO SCH (21:45)
[2020-07-02] MEDS ORDERED: Nicotine 14 MG PATCH TD SCH (22:00)
[2020-07-02 23:07] LABS: Sodium 126 mmol/L (136-145)
[2020-07-03 00:13] VITALS: BMI 18.1
[2020-07-03 00:36] LABS: SARS-CoV-2 NAA Rapid Test Not Detected (NotDetected)
[2020-07-03] MEDS ORDERED: Dextrose 5% in Water 1,000 ML IV SCH ×2 (04:45→06:43)
[2020-07-03 05:08] LABS: Mean Corpuscular HGB CONC 32.8 g/dL (32.0-36.0); Mean Corpuscular Hemoglobin 30.5 pg (27.0-31.0); Mean Corpuscular Volume 92.9 fL (78.0-98.0); Mean Platelet Volume 7.2 fL (7.4-10.4); Platelet Count 333 thou/uL (130-400); RBC Distribution Width 16.6 % (11.5-14.5); Red Blood Cell (RBC) Count 3.27 mill/uL (4.20-5.40)
[2020-07-03 05:21] LABS: ALT (SGPT) 13 U/L (8-55); AST (SGOT) 23 U/L (5-34); Albumin 3.9 g/dL (3.4-4.8); Alkaline Phosphatase 84 U/L (40-110); Anion Gap 13 mmol/L (10-20); BUN (Urea Nitrogen) 7 mg/dL (9.8-20.1); Bilirubin, Total 0.2 mg/dL (0.2-1.2); Calc. Creatinine Clearance 49 mL/min (70-130); Calcium 9.2 mg/dL (7.8-10.44); Carbon Dioxide 26 mmol/L (23-31); Chloride 95 mmol/L (98-107); Globulin 2.7 g/dL (2.4-3.5); Glucose 235 mg/dL (80-115); Potassium 4.4 mmol/L (3.5-5.1); Protein, Total 6.6 g/dL (5.8-8.1); Sodium 130 mmol/L (136-145)
[2020-07-03 05:43] LABS: Band 8 % (5-11); Hypochromia SLIGHT = 6-15 cells (100X) (0-5/hpf); Lymphocytes 20 % (21-51); MDiff Complete? YES; Monocytes 4 % (0-10); Neutrophil 68 % (42-75); Platelet Morphology Comment Appears Adequate; White Blood Cell (WBC) Count 1.3 thou/uL (4.8-10.8)
[2020-07-03 08:16] LABS: Chloride 91 mmol/L (98-107); Potassium 4.5 mmol/L (3.5-5.1); Sodium 126 mmol/L (136-145)
[2020-07-03 08:17] LABS: Calcium 9.1 mg/dL (7.8-10.44); Glucose 231 mg/dL (80-115)
[2020-07-03 08:19] LABS: Anion Gap 14 mmol/L (10-20); Carbon Dioxide 26 mmol/L (23-31)
[2020-07-03 08:21] LABS: Calc. Creatinine Clearance 50 mL/min (70-130)
[2020-07-03 08:22] LABS: BUN (Urea Nitrogen) 7 mg/dL (9.8-20.1)
[2020-07-03] MEDS ORDERED: Folic Acid 1 MG TAB PO SCH (09:00)
[2020-07-03] MEDS ORDERED: Ferrous Gluconate 324 MG TAB PO SCH (09:00)
[2020-07-03] MEDS ORDERED: Enoxaparin Sodium 30 MG/0.3 ML SYRINGE SC SCH (09:00)
[2020-07-03] MEDS ORDERED: Cyanocobalamin (Vitamin B-12) 1,000 MCG TAB PO SCH (09:00)
[2020-07-03] MEDS ORDERED: Gabapentin 300 MG CAP PO SCH (09:00)
[2020-07-03] MEDS ORDERED: Famotidine 20 MG TAB PO SCH (09:00)
[2020-07-03] MEDS ORDERED: Sodium Chloride 1 GM TAB PO SCH (09:00)
[2020-07-03] MEDS ORDERED: Thiamine 100 MG TAB PO SCH (09:00)
[2020-07-03] MEDS ORDERED: Aspirin 81 mg Enteric Coated Tablet PO SCH (09:00)
[2020-07-03] MEDS ORDERED: Lice Shampoo 120 ML BOT TOP SCH (10:45)
[2020-07-03 12:02] VITALS: BP 205/97; TEMP 98
[2020-07-03 12:17] LABS: Anion Gap 20 mmol/L (10-20); BUN (Urea Nitrogen) 7 mg/dL (9.8-20.1); Calc. Creatinine Clearance 51 mL/min (70-130); Calcium 9.3 mg/dL (7.8-10.44); Carbon Dioxide 20 mmol/L (23-31); Chloride 89 mmol/L (98-107); Glucose 209 mg/dL (80-115); Potassium 4.6 mmol/L (3.5-5.1); Sodium 124 mmol/L (136-145)
[2020-07-03] MEDS ORDERED: cloNIDine 0.1 MG TAB PO PRN (14:24)
[2020-07-03] MEDS ORDERED: Sodium Bicarbonate Tab 325 MG TAB PO SCH (15:00)
[2020-07-03] MEDS ORDERED: traZODone HCl 50 MG TAB PO SCH (21:00)
== END 2020-07-03 15:17 | disposition left against medical advice (07) | DRG 641 ==
LOC: ERS 18:51 → 2NO 20:46
PROVIDERS: ADMIT Internal Medicine; ATTEND Internal Medicine
PROC: HZ2ZZZZ Detoxification Services for Substance Abuse Treatment (ICD-10-PCS; principal; 2020-07-02)
DX: E87.1 Hypo-osmolality and hyponatremia (principal); F10.239 Alcohol dependence with withdrawal, unspecified; E44.0 Moderate protein-calorie malnutrition; Z68.1 Body mass index [BMI] 19.9 or less, adult; Z20.822 Contact with and (suspected) exposure to COVID-19; I10 Essential (primary) hypertension; F41.9 Anxiety disorder, unspecified; F32.9 Major depressive disorder, single episode, unspecified; Y90.6 Blood alcohol level of 120-199 mg/100 ml; F17.210 Nicotine dependence, cigarettes, uncomplicated; B85.0 Pediculosis due to Pediculus humanus capitis; D50.9 Iron deficiency anemia, unspecified; E87.2 Acidosis; F10.229 Alcohol dependence with intoxication, unspecified; Z53.29 Procedure and treatment not carried out because of patient's decision for other reasons; S42.212G Unspecified displaced fracture of surgical neck of left humerus, subsequent encounter for fracture with delayed healing; Z71.41 Alcohol abuse counseling and surveillance of alcoholic
CPT/HCPCS: 36415; 51701; 71045; 80053; 80306; 80307; 81003; 81015; 82248; 85007; 85025; 85027; 86780; 87086; 93005; 94640; 96374; 96375; 99281; J1100; J1650; J2060; J2405; J3411; J7042; J7620; U0002

== ENCOUNTER 2020-07-06 17:20 | Emergency (ER) | payer MEDICARE ==
[2020-07-06] MEDS ORDERED: Lorazepam 1 MG TAB ONE (18:09)
[2020-07-06 18:30] LABS: #Lymphocytes 1.1 thou/uL (1.20-3.40); #Monocytes 0.6 thou/uL (0.11-0.59); #Neutrophils 2.3 thou/uL (1.40-6.50); %Basophils 1.2 % (0.0-1.0); %Eosinophils 0.5 % (0.0-10.0); %Monocytes 13.7 % (0.0-10.0); %Neutrophils 56.7 % (42.0-75.0); Mean Corpuscular HGB CONC 34.8 g/dL (32.0-36.0); Mean Corpuscular Hemoglobin 31.7 pg (27.0-31.0); Mean Corpuscular Volume 91.2 fL (78.0-98.0); Platelet Count 300 thou/uL (130-400); RBC Distribution Width 16.8 % (11.5-14.5); Red Blood Cell (RBC) Count 3.45 mill/uL (4.20-5.40)
[2020-07-06 18:57] LABS: Alcohol 175 mg/dL (Less than 10); CK (CPK) 53 U/L (29-168); Salicylate Less than 8.0 mg/dL (15.0-30.0)
[2020-07-06 18:58] LABS: ALT (SGPT) 15 U/L (8-55); AST (SGOT) 35 U/L (5-34); Albumin 4.2 g/dL (3.4-4.8); Alkaline Phosphatase 97 U/L (40-110); Anion Gap 15 mmol/L (10-20); BUN (Urea Nitrogen) 8 mg/dL (9.8-20.1); Bilirubin, Total 0.2 mg/dL (0.2-1.2); Calc. Creatinine Clearance 0 mL/min (70-130); Calcium 9.2 mg/dL (7.8-10.44); Carbon Dioxide 23 mmol/L (23-31); Chloride 89 mmol/L (98-107); Globulin 3.2 g/dL (2.4-3.5); Glucose 94 mg/dL (80-115); Protein, Total 7.4 g/dL (5.8-8.1); Sodium 123 mmol/L (136-145)
== END 2020-07-06 18:22 | disposition left against medical advice (07) ==
LOC: ERS 17:20
DX: F41.9 Anxiety disorder, unspecified (principal); I10 Essential (primary) hypertension; J44.9 Chronic obstructive pulmonary disease, unspecified; F17.210 Nicotine dependence, cigarettes, uncomplicated
CPT/HCPCS: 36415; 80053; 80307; 82550; 84443; 84484; 85025; 93005

== ENCOUNTER 2020-07-12 23:26 | Emergency (ER) | payer MEDICARE ==
[2020-07-13] MEDS ORDERED: Ondansetron ODT 8 MG TAB ONE (00:16)
== END 2020-07-13 00:24 | disposition home or self-care (01) ==
LOC: ERS 23:26
DX: S42.202A Unspecified fracture of upper end of left humerus, initial encounter for closed fracture (principal); J44.9 Chronic obstructive pulmonary disease, unspecified; I10 Essential (primary) hypertension; F10.20 Alcohol dependence, uncomplicated; F17.210 Nicotine dependence, cigarettes, uncomplicated
CPT/HCPCS: Q0162

== ENCOUNTER 2020-07-13 17:43 | Inpatient (IN) | payer MEDICARE ==
[2020-07-13 18:38] LABS: #Basophils 0.1 thou/uL (0.0-0.2); #Lymphocytes 1.1 thou/uL (1.20-3.40); #Monocytes 0.7 thou/uL (0.11-0.59); #Neutrophils 4.3 thou/uL (1.40-6.50); %Eosinophils 0.2 % (0.0-10.0); %Lymphocytes 17.8 % (21.0-51.0); %Monocytes 11.1 % (0.0-10.0); %Neutrophils 69.9 % (42.0-75.0); Hemoglobin 10.5 g/dL (12.0-16.0); Mean Corpuscular HGB CONC 33.8 g/dL (32.0-36.0); Mean Corpuscular Hemoglobin 30.6 pg (27.0-31.0); Mean Corpuscular Volume 90.7 fL (78.0-98.0); Platelet Count 335 thou/uL (130-400); RBC Distribution Width 16.1 % (11.5-14.5); Red Blood Cell (RBC) Count 3.42 mill/uL (4.20-5.40); White Blood Cell (WBC) Count 6.2 thou/uL (4.8-10.8)
[2020-07-13 18:42] LABS: Bacteria/HPF None Seen HPF (None Seen); Bilirubin Negative (Negative); Blood, Urine 1+ (Negative); Clarity Clear (Clear); Glucose, Urine (Dipstick) Normal (Negative); Ketone, Urine Negative (Negative); Leukocyte Negative Leu/uL (Negative); Nitrite Negative (Negative); Protein, Urine (Dipstick) Negative (Neg-Trace); RBC/HPF 0-3 HPF (0-3); Specific Gravity, Urine 1.005 (1.002-1.036); Squamous Epithelial 0-3 HPF (0-3); Urobilinogen Normal mg/dL (Less than 2); WBC/HPF 0-3 HPF (0-3); pH, Urine 5.5 (5.0-9.0)
[2020-07-13] MEDS ORDERED: Ondansetron ODT 4 MG TAB ONE (18:46)
[2020-07-13 18:51] LABS: Amphetamine Not Detected (NotDetected); Barbiturates Screen Not Detected (NotDetected); Benzodiazepine Screen Not Detected (NotDetected); Cocaine Metabolite Screen Not Detected (NotDetected); Medtox Control Line Valid? VALID (VALID); Medtox Reader # READER 4; Methadone Not Detected (NotDetected); Methamphetamine Not Detected (NotDetected); Opiate Screen Not Detected (NotDetected); Oxycodone Screen Not Detected (NotDetected); Phencyclidine (PCP) Not Detected (NotDetected); THC/Cannabinoid Screen Not Detected (NotDetected); Tricyclic Screen Not Detected (NotDetected)
[2020-07-13 18:57] LABS: Acetaminophen Less than 6.0 mcg/mL (10.0-30.0); Alcohol 210 mg/dL (Less than 10); Salicylate Less than 8.0 mg/dL (15.0-30.0)
[2020-07-13 18:59] LABS: ALT (SGPT) 15 U/L (8-55); AST (SGOT) 35 U/L (5-34); Albumin 4.2 g/dL (3.4-4.8); Alkaline Phosphatase 89 U/L (40-110); Anion Gap 19 mmol/L (10-20); BUN (Urea Nitrogen) 7 mg/dL (9.8-20.1); Bilirubin, Total 0.3 mg/dL (0.2-1.2); CK (CPK) 176 U/L (29-168); Calc. Creatinine Clearance 0 mL/min (70-130); Calcium 8.9 mg/dL (7.8-10.44); Carbon Dioxide 20 mmol/L (23-31); Chloride 88 mmol/L (98-107); Globulin 3.3 g/dL (2.4-3.5); Glucose 84 mg/dL (80-115); Potassium 4.5 mmol/L (3.5-5.1); Protein, Total 7.5 g/dL (5.8-8.1); Sodium 122 mmol/L (136-145)
[2020-07-13] MEDS ORDERED: Acetaminophen 650 MG Suppository PR PRN (21:17)
[2020-07-13] MEDS ORDERED: Ondansetron ODT 4 MG TAB PO PRN (21:17)
[2020-07-13] MEDS ORDERED: Ondansetron PF 4 MG/2 ML Vial IVP PRN (21:17)
[2020-07-13] MEDS ORDERED: Lorazepam 2 MG/ML VIAL SLOW IVP PRN (21:20)
[2020-07-13] MEDS ORDERED: Acetaminophen 500 MG TAB ONE (21:26)
[2020-07-13] MEDS ORDERED: Thiamine HCl 200 MG/2 ML VIAL IM SCH (21:30)
[2020-07-13 22:23] LABS: Sodium 127 mmol/L (136-145)
[2020-07-14] MEDS ORDERED: diphenhydrAMINE 30 GM TUBE TOP PRN (00:41)
[2020-07-14] MEDS ORDERED: diphenhydrAMINE 25 MG CAP PO SCH (00:45)
[2020-07-14 01:34] LABS: Potassium, Urine 16.7 mmol/L
[2020-07-14 01:51] VITALS: BMI 17.0
[2020-07-14 02:52] LABS: SARS-CoV-2 NAA Rapid Test Not Detected (NotDetected)
[2020-07-14] MEDS: Acetaminophen 325 MG TAB PO PRN ×2 (05:02→15:07)
[2020-07-14] MEDS ORDERED: diphenhydrAMINE 25 MG CAP PO PRN (05:22)
[2020-07-14] MEDS: hydrALAZINE 20 MG/ML VIAL SLOW IVP PRN ×2 (05:40→23:35)
[2020-07-14 05:59] LABS: Anion Gap 15 mmol/L (10-20); BUN (Urea Nitrogen) 8 mg/dL (9.8-20.1); Calc. Creatinine Clearance 52 mL/min (70-130); Calcium 9.6 mg/dL (7.8-10.44); Carbon Dioxide 25 mmol/L (23-31); Chloride 93 mmol/L (98-107); Glucose 108 mg/dL (80-115); Potassium 4.3 mmol/L (3.5-5.1); Sodium 129 mmol/L (136-145)
[2020-07-14 06:08] LABS: Band 5 % (5-11); Hemoglobin 11.3 g/dL (12.0-16.0); Lymphocytes 15 % (21-51); MDiff Complete? YES; Mean Corpuscular HGB CONC 33.2 g/dL (32.0-36.0); Mean Corpuscular Hemoglobin 30.6 pg (27.0-31.0); Mean Corpuscular Volume 92.3 fL (78.0-98.0); Mean Platelet Volume 7.1 fL (7.4-10.4); Monocytes 14 % (0-10); Neutrophil 66 % (42-75); Platelet Count 346 thou/uL (130-400); RBC Distribution Width 16.1 % (11.5-14.5); White Blood Cell (WBC) Count 7.5 thou/uL (4.8-10.8)
[2020-07-14] MEDS: Folic Acid 1 MG TAB PO SCH (08:57)
[2020-07-14] MEDS: Magnesium Oxide 400 MG TAB PO SCH (08:57)
[2020-07-14] MEDS: Thiamine 100 MG TAB PO SCH (08:57)
[2020-07-14] MEDS: Multivitamin W/ Minerals 1 TAB PO SCH (08:57)
[2020-07-14] MEDS: Lisinopril 5 MG TAB PO SCH (08:58)
[2020-07-14 11:07] LABS: Sodium 127 mmol/L (136-145)
[2020-07-14] MEDS ORDERED: Permethrin 5% Cream 60 GM TUBE TOP SCH (15:15)
[2020-07-14 15:53] LABS: Sodium 129 mmol/L (136-145)
[2020-07-14] MEDS: Ibuprofen 200 MG TAB PO PRN (20:25)
[2020-07-14] MEDS ORDERED: traZODone HCl 50 MG TAB PO SCH (23:30)
[2020-07-15] MEDS: Ibuprofen 200 MG TAB PO PRN ×2 (03:51→09:32)
[2020-07-15 06:06] LABS: Anion Gap 15 mmol/L (10-20); BUN (Urea Nitrogen) 15 mg/dL (9.8-20.1); Calc. Creatinine Clearance 38 mL/min (70-130); Calcium 10.2 mg/dL (7.8-10.44); Carbon Dioxide 24 mmol/L (23-31); Chloride 91 mmol/L (98-107); Glucose 122 mg/dL (80-115); Magnesium 2.1 mg/dL (1.6-2.6); Potassium 4.5 mmol/L (3.5-5.1); Sodium 125 mmol/L (136-145)
[2020-07-15 06:07] LABS: Hemoglobin 11.2 g/dL (12.0-16.0); Lymphocytes 28 % (21-51); MDiff Complete? YES; Mean Corpuscular HGB CONC 33.3 g/dL (32.0-36.0); Mean Corpuscular Hemoglobin 31.1 pg (27.0-31.0); Mean Corpuscular Volume 93.3 fL (78.0-98.0); Mean Platelet Volume 8.2 fL (7.4-10.4); Monocytes 19 % (0-10); Neutrophil 53 % (42-75); Platelet Count 285 thou/uL (130-400); Platelet Morphology Comment Appears Adequate; Red Blood Cell (RBC) Count 3.61 mill/uL (4.20-5.40); White Blood Cell (WBC) Count 5.6 thou/uL (4.8-10.8)
[2020-07-15] MEDS: Lisinopril 5 MG TAB PO SCH (09:02)
[2020-07-15] MEDS: Folic Acid 1 MG TAB PO SCH (09:02)
[2020-07-15] MEDS: Multivitamin W/ Minerals 1 TAB PO SCH (09:03)
[2020-07-15] MEDS: Magnesium Oxide 400 MG TAB PO SCH (09:03)
[2020-07-15] MEDS: Thiamine 100 MG TAB PO SCH (09:03)
[2020-07-15 11:43] VITALS: TEMP 98
[2020-07-15] MEDS: Ibuprofen 600 MG TAB PO PRN ×2 (13:06→17:45)
[2020-07-15 13:10] LABS: Sodium 128 mmol/L (136-145)
[2020-07-15] MEDS ORDERED: FLUoxetine HCl 20 MG CAP PO SCH (14:45)
[2020-07-15 16:04] VITALS: BP 116/76
[2020-07-15] MEDS ORDERED: traZODone HCl 50 MG TAB PO SCH (21:00)
[2020-07-16] MEDS ORDERED: FLUoxetine HCl 20 MG CAP PO SCH (09:00)
== END 2020-07-15 19:30 | disposition home or self-care (01) | DRG 897 ==
LOC: ERS 17:43 → SURG A 20:57 → OBSVTOIN 07-14 04:17
PROVIDERS: ADMIT Student in an Organized Health Care Education/Training Program; ATTEND Internal Medicine
PROC: HZ2ZZZZ Detoxification Services for Substance Abuse Treatment (ICD-10-PCS; principal; 2020-07-14)
DX: F10.129 Alcohol abuse with intoxication, unspecified (principal); E87.1 Hypo-osmolality and hyponatremia; S42.292A Other displaced fracture of upper end of left humerus, initial encounter for closed fracture; R45.851 Suicidal ideations; E44.0 Moderate protein-calorie malnutrition; Z68.1 Body mass index [BMI] 19.9 or less, adult; B85.0 Pediculosis due to Pediculus humanus capitis; L21.0 Seborrhea capitis; F32.9 Major depressive disorder, single episode, unspecified; F41.9 Anxiety disorder, unspecified; Z96.641 Presence of right artificial hip joint; F17.210 Nicotine dependence, cigarettes, uncomplicated; W18.30XA Fall on same level, unspecified, initial encounter; Y90.7 Blood alcohol level of 200-239 mg/100 ml; Z88.1 Allergy status to other antibiotic agents; Z79.899 Other long term (current) drug therapy; Z79.82 Long term (current) use of aspirin; Z91.14 Patient's other noncompliance with medication regimen; Z90.49 Acquired absence of other specified parts of digestive tract; Z90.89 Acquired absence of other organs; Z82.49 Family history of ischemic heart disease and other diseases of the circulatory system
CPT/HCPCS: 36415; 70450; 80048; 80053; 80306; 80307; 81003; 81015; 82436; 82550; 83735; 83930; 83935; 84133; 84295; 84300; 84443; 85025; 93005; 99283; G0378; J0360; J2060; J2405; J3411; J3475; J3490; Q0162; U0002; U0005

== ENCOUNTER 2020-07-16 17:44 | Emergency (ER) | payer MEDICARE | END 2020-07-16 18:23 | LOC: ERS 17:44 | DX: R11.2 Nausea with vomiting, unspecified (principal); M79.602 Pain in left arm; Z79.899 Other long term (current) drug therapy; I10 Essential (primary) hypertension; J44.9 Chronic obstructive pulmonary disease, unspecified; F17.210 Nicotine dependence, cigarettes, uncomplicated | CPT/HCPCS: 99284 ==

== ENCOUNTER 2020-07-16 23:13 | Emergency (ER) | payer MEDICARE | END 2020-07-16 23:42 | disposition left against medical advice (07) | LOC: ERS 23:13 | DX: Z53.21 Procedure and treatment not carried out due to patient leaving prior to being seen by health care provider (principal) ==

== ENCOUNTER 2020-07-24 19:13 | Emergency (ER) | payer MEDICARE | END 2020-07-24 19:50 | disposition left against medical advice (07) | LOC: ERS 19:13 | DX: Z53.21 Procedure and treatment not carried out due to patient leaving prior to being seen by health care provider (principal) ==

== ENCOUNTER 2020-07-24 23:00 | Emergency (ER) | payer MEDICARE ==
[2020-07-25] MEDS ORDERED: Ondansetron ODT 4 MG TAB ONE (00:01)
== END 2020-07-25 03:46 | disposition home or self-care (01) ==
LOC: ERS 23:00
DX: R11.2 Nausea with vomiting, unspecified (principal); I10 Essential (primary) hypertension; F17.210 Nicotine dependence, cigarettes, uncomplicated
CPT/HCPCS: Q0162

== ENCOUNTER 2020-07-25 16:27 | Inpatient (IN) | payer MEDICARE ==
[2020-07-25] MEDS ORDERED: Ondansetron ODT 4 MG TAB ONE (16:47)
[2020-07-25 17:11] LABS: #Basophils 0.1 thou/uL (0.0-0.2); #Lymphocytes 1.6 thou/uL (1.20-3.40); #Monocytes 0.8 thou/uL (0.11-0.59); %Basophils 1.1 % (0.0-1.0); %Eosinophils 0.3 % (0.0-10.0); %Lymphocytes 29.6 % (21.0-51.0); Hemoglobin 10.4 g/dL (12.0-16.0); Mean Corpuscular HGB CONC 34.3 g/dL (32.0-36.0); Mean Corpuscular Hemoglobin 30.6 pg (27.0-31.0); Mean Corpuscular Volume 89.2 fL (78.0-98.0); Mean Platelet Volume 6.6 fL (7.4-10.4); Platelet Count 445 thou/uL (130-400); RBC Distribution Width 15.5 % (11.5-14.5); Red Blood Cell (RBC) Count 3.38 mill/uL (4.20-5.40); White Blood Cell (WBC) Count 5.4 thou/uL (4.8-10.8)
[2020-07-25 17:38] LABS: ALT (SGPT) 40 U/L (8-55); AST (SGOT) 71 U/L (5-34); Acetaminophen Less than 6.0 mcg/mL (10.0-30.0); Albumin 4.2 g/dL (3.4-4.8); Alcohol 274 mg/dL (Less than 10); Alkaline Phosphatase 85 U/L (40-110); Anion Gap 17 mmol/L (10-20); BUN (Urea Nitrogen) 5 mg/dL (9.8-20.1); Bilirubin, Total 0.4 mg/dL (0.2-1.2); Calc. Creatinine Clearance 0 mL/min (70-130); Calcium 9.3 mg/dL (7.8-10.44); Carbon Dioxide 21 mmol/L (23-31); Chloride 84 mmol/L (98-107); Globulin 2.7 g/dL (2.4-3.5); Glucose 100 mg/dL (80-115); Potassium 4.8 mmol/L (3.5-5.1); Protein, Total 6.9 g/dL (5.8-8.1); Salicylate Less than 8.0 mg/dL (15.0-30.0)
[2020-07-25 17:46] LABS: Critical Call Chemistry NUR.LH8@1746; Sodium 117 mmol/L (136-145)
[2020-07-25] MEDS ORDERED: Lorazepam 2 MG/ML VIAL ONE (19:06)
[2020-07-25] MEDS ORDERED: Multivitamins, Adult 10 ML, Thiamine HCl 100 MG, Folic Acid 1 MG in Dextrose 5 %-0.45 %... IV SCH (19:30)
[2020-07-25] MEDS ORDERED: Nicotine 14 MG PATCH ONE (19:33)
[2020-07-25] MEDS ORDERED: Ondansetron ODT 4 MG TAB PO PRN (22:26)
[2020-07-25] MEDS ORDERED: Diazepam 5 MG TAB PO SCH (23:00)
[2020-07-25 23:21] LABS: Anion Gap 13 mmol/L (10-20); BUN (Urea Nitrogen) 4 mg/dL (9.8-20.1); Calc. Creatinine Clearance 0 mL/min (70-130); Calcium 8.1 mg/dL (7.8-10.44); Carbon Dioxide 22 mmol/L (23-31); Chloride 97 mmol/L (98-107); Glucose 126 mg/dL (80-115); Potassium 3.7 mmol/L (3.5-5.1); Sodium 128 mmol/L (136-145)
[2020-07-26 00:53] LABS: Bilirubin Negative (Negative); Blood, Urine Small (Negative); Glucose, Urine (Dipstick) Negative (Negative); Ketone, Urine Negative (Negative); Leukocyte Negative (Negative); Nitrite Negative (Negative); Protein, Urine (Dipstick) Negative (Neg-Trace); Urobilinogen 0.2 mg/dL (Less than 2); pH, Urine 5.5 (5.0-9.0)
[2020-07-26 00:56] LABS: Urine Culture Reflex No No
[2020-07-26 00:59] LABS: Clarity Clear (Clear); Specific Gravity, Urine 1.004 (1.002-1.036)
[2020-07-26 01:16] LABS: Bacteria/HPF None Seen HPF (None Seen); RBC/HPF 0-3 HPF (0-3); Squamous Epithelial None Seen HPF (0-3); WBC/HPF None Seen HPF (0-3)
[2020-07-26 01:29] LABS: SARS-CoV-2 NAA Rapid Test Not Detected (NotDetected)
[2020-07-26] MEDS: Dextrose 5% in Water 500 ML IV SCH ×3 (01:33→04:21)
[2020-07-26] MEDS: Dextrose 5% in Water 1,000 ML IV SCH ×2 (01:33→10:01)
[2020-07-26] MEDS ORDERED: hydrALAZINE 20 MG/ML VIAL SLOW IVP PRN (03:02)
[2020-07-26] MEDS: Diazepam 5 MG TAB PO PRN ×2 (03:31→11:39)
[2020-07-26 03:50] LABS: Anion Gap 13 mmol/L (10-20); BUN (Urea Nitrogen) 5 mg/dL (9.8-20.1); Calc. Creatinine Clearance 54 mL/min (70-130); Calcium 8.7 mg/dL (7.8-10.44); Carbon Dioxide 28 mmol/L (23-31); Chloride 92 mmol/L (98-107); Glucose 129 mg/dL (80-115); Potassium 3.7 mmol/L (3.5-5.1); Sodium 129 mmol/L (136-145)
[2020-07-26 04:17] LABS: Band 5 % (5-11); Lymphocytes 33 % (21-51); MDiff Complete? YES; Mean Corpuscular HGB CONC 33.8 g/dL (32.0-36.0); Mean Corpuscular Volume 91.7 fL (78.0-98.0); Mean Platelet Volume 6.7 fL (7.4-10.4); Monocytes 19 % (0-10); Neutrophil 43 % (42-75); Platelet Count 416 thou/uL (130-400); RBC Distribution Width 15.3 % (11.5-14.5); Red Blood Cell (RBC) Count 3.55 mill/uL (4.20-5.40); White Blood Cell (WBC) Count 5.4 thou/uL (4.8-10.8)
[2020-07-26] MEDS ORDERED: cloNIDine 0.1 MG TAB PO PRN (06:19)
[2020-07-26 07:03] LABS: Anion Gap 11 mmol/L (10-20); BUN (Urea Nitrogen) 7 mg/dL (9.8-20.1); Calc. Creatinine Clearance 55 mL/min (70-130); Calcium 8.8 mg/dL (7.8-10.44); Carbon Dioxide 28 mmol/L (23-31); Chloride 93 mmol/L (98-107); Glucose 112 mg/dL (80-115); Potassium 3.8 mmol/L (3.5-5.1); Sodium 128 mmol/L (136-145)
[2020-07-26 07:38] LABS: Anion Gap 11 mmol/L (10-20); BUN (Urea Nitrogen) 7 mg/dL (9.8-20.1); Calc. Creatinine Clearance 59 mL/min (70-130); Calcium 8.7 mg/dL (7.8-10.44); Carbon Dioxide 27 mmol/L (23-31); Chloride 92 mmol/L (98-107); Glucose 149 mg/dL (80-115); Potassium 3.7 mmol/L (3.5-5.1); Sodium 126 mmol/L (136-145)
[2020-07-26] MEDS ORDERED: Dextrose 5% in Water 1,000 ML IV SCH (08:40)
[2020-07-26] MEDS ORDERED: Folic Acid 1 MG TAB PO SCH (09:00)
[2020-07-26] MEDS ORDERED: Multivitamin W/ Minerals 1 TAB PO SCH (09:00)
[2020-07-26] MEDS: Enoxaparin Sodium 40 MG/0.4 ML SYRINGE SC SCH (09:03)
[2020-07-26] MEDS: Magnesium Oxide 400 MG TAB PO SCH (09:03)
[2020-07-26] MEDS: Thiamine 100 MG TAB PO SCH (09:03)
[2020-07-26] MEDS: Ondansetron PF 4 MG/2 ML Vial IVP PRN (09:49)
[2020-07-26 10:21] LABS: Anion Gap 13 mmol/L (10-20); BUN (Urea Nitrogen) 6 mg/dL (9.8-20.1); Calc. Creatinine Clearance 53 mL/min (70-130); Calcium 8.7 mg/dL (7.8-10.44); Carbon Dioxide 27 mmol/L (23-31); Chloride 91 mmol/L (98-107); Glucose 148 mg/dL (80-115); Potassium 3.7 mmol/L (3.5-5.1); Sodium 127 mmol/L (136-145)
[2020-07-26] MEDS: Acetaminophen 325 MG TAB PO PRN (11:26)
[2020-07-26 12:01] LABS: Anion Gap 12 mmol/L (10-20); BUN (Urea Nitrogen) 7 mg/dL (9.8-20.1); Calc. Creatinine Clearance 48 mL/min (70-130); Carbon Dioxide 28 mmol/L (23-31); Chloride 90 mmol/L (98-107); Potassium 4.1 mmol/L (3.5-5.1); Sodium 126 mmol/L (136-145)
[2020-07-26 12:02] LABS: Glucose 134 mg/dL (80-115)
[2020-07-26] MEDS ORDERED: Loratadine 10 MG TAB PO PRN (15:22)
[2020-07-26 15:40] LABS: Anion Gap 14 mmol/L (10-20); BUN (Urea Nitrogen) 8 mg/dL (9.8-20.1); Calc. Creatinine Clearance 50 mL/min (70-130); Carbon Dioxide 28 mmol/L (23-31); Chloride 90 mmol/L (98-107); Glucose 106 mg/dL (80-115); Sodium 128 mmol/L (136-145)
[2020-07-26 18:45] LABS: Anion Gap 13 mmol/L (10-20); BUN (Urea Nitrogen) 7 mg/dL (9.8-20.1); Calc. Creatinine Clearance 48 mL/min (70-130); Calcium 9.4 mg/dL (7.8-10.44); Carbon Dioxide 30 mmol/L (23-31); Chloride 89 mmol/L (98-107); Glucose 155 mg/dL (80-115); Potassium 3.8 mmol/L (3.5-5.1); Sodium 128 mmol/L (136-145)
[2020-07-26 18:51] LABS: Band 4 % (5-11); Hemoglobin 10.9 g/dL (12.0-16.0); Lymphocytes 21 % (21-51); MDiff Complete? YES; Mean Corpuscular Hemoglobin 31.3 pg (27.0-31.0); Mean Platelet Volume 6.6 fL (7.4-10.4); Monocytes 22 % (0-10); Neutrophil 51 % (42-75); Platelet Count 362 thou/uL (130-400); Platelet Morphology Comment Appears Adequate; Polychromasia SLIGHT = 2-3 cells (100X) (0-2/hpf); RBC Distribution Width 15.4 % (11.5-14.5); Reactive Lymphocytes 2 % (0-10); Red Blood Cell (RBC) Count 3.47 mill/uL (4.20-5.40); White Blood Cell (WBC) Count 4.4 thou/uL (4.8-10.8)
[2020-07-26] MEDS: Gabapentin 300 MG CAP PO SCH (21:03)
[2020-07-26] MEDS: Diazepam 5 MG TAB PO SCH (21:03)
[2020-07-26] MEDS: traZODone HCl 50 MG TAB PO SCH (22:36)
[2020-07-26] MEDS ORDERED: Diazepam 5 MG TAB PO PRN (22:53)
[2020-07-27 05:19] LABS: Magnesium 1.7 mg/dL (1.6-2.6); Phosphorus 3.4 mg/dL (2.3-4.7)
[2020-07-27 06:42] LABS: Anion Gap 10 mmol/L (10-20); BUN (Urea Nitrogen) 10 mg/dL (9.8-20.1); Calc. Creatinine Clearance 54 mL/min (70-130); Calcium 8.9 mg/dL (7.8-10.44); Carbon Dioxide 29 mmol/L (23-31); Chloride 94 mmol/L (98-107); Glucose 118 mg/dL (80-115); Potassium 3.8 mmol/L (3.5-5.1); Sodium 129 mmol/L (136-145)
[2020-07-27] MEDS: Gabapentin 300 MG CAP PO SCH ×3 (08:06→21:02)
[2020-07-27] MEDS: Aspirin 81 mg Enteric Coated Tablet PO SCH (08:06)
[2020-07-27] MEDS: Diazepam 5 MG TAB PO SCH (08:06)
[2020-07-27] MEDS: Enoxaparin Sodium 40 MG/0.4 ML SYRINGE SC SCH (08:06)
[2020-07-27] MEDS: Nicotine 14 MG PATCH TD SCH (08:06)
[2020-07-27] MEDS: Multivit, Therapeutic 1 TAB PO SCH (08:07)
[2020-07-27] MEDS: Folic Acid 1 MG TAB PO SCH (08:07)
[2020-07-27] MEDS: FLUoxetine HCl 20 MG CAP PO SCH (08:07)
[2020-07-27] MEDS: Magnesium Oxide 400 MG TAB PO SCH (08:07)
[2020-07-27] MEDS: Thiamine 100 MG TAB PO SCH (08:07)
[2020-07-27] MEDS: Acetaminophen 325 MG TAB PO PRN ×2 (14:42→21:03)
[2020-07-27] MEDS: Ondansetron PF 4 MG/2 ML Vial IVP PRN (15:35)
[2020-07-27] MEDS: Diazepam 2 MG TAB PO SCH (21:01)
[2020-07-27] MEDS: traZODone HCl 50 MG TAB PO SCH (21:02)
[2020-07-28 05:19] LABS: Albumin 3.5 g/dL (3.4-4.8); Anion Gap 12 mmol/L (10-20); BUN (Urea Nitrogen) 12 mg/dL (9.8-20.1); BUN/Creatinine Ratio 17.91; Calc. Creatinine Clearance 50 mL/min (70-130); Calcium 9.7 mg/dL (7.8-10.44); Carbon Dioxide 30 mmol/L (23-31); Chloride 93 mmol/L (98-107); Glucose 102 mg/dL (80-115); Phosphorus 4.7 mg/dL (2.3-4.7); Potassium 4.2 mmol/L (3.5-5.1); Sodium 131 mmol/L (136-145)
[2020-07-28] MEDS: Diazepam 2 MG TAB PO SCH ×2 (08:33→20:13)
[2020-07-28] MEDS: Magnesium Oxide 400 MG TAB PO SCH (08:33)
[2020-07-28] MEDS: Aspirin 81 mg Enteric Coated Tablet PO SCH (08:33)
[2020-07-28] MEDS: Enoxaparin Sodium 40 MG/0.4 ML SYRINGE SC SCH (08:33)
[2020-07-28] MEDS: Gabapentin 300 MG CAP PO SCH ×3 (08:33→20:13)
[2020-07-28] MEDS: Thiamine 100 MG TAB PO SCH (08:34)
[2020-07-28] MEDS: Folic Acid 1 MG TAB PO SCH (08:34)
[2020-07-28] MEDS: FLUoxetine HCl 20 MG CAP PO SCH (08:34)
[2020-07-28] MEDS: Multivit, Therapeutic 1 TAB PO SCH (08:34)
[2020-07-28] MEDS: Nicotine 14 MG PATCH TD SCH (08:34)
[2020-07-28] MEDS: guaiFENesin ER 600 MG TAB PO SCH ×2 (09:45→20:13)
[2020-07-28] MEDS: Acetaminophen 325 MG TAB PO PRN ×2 (14:42→20:13)
[2020-07-28] MEDS: Ondansetron PF 4 MG/2 ML Vial IVP PRN (14:43)
[2020-07-28] MEDS: traZODone HCl 50 MG TAB PO SCH (21:45)
[2020-07-29 05:52] LABS: Albumin 3.4 g/dL (3.4-4.8); Anion Gap 11 mmol/L (10-20); BUN (Urea Nitrogen) 19 mg/dL (9.8-20.1); BUN/Creatinine Ratio 26.03; Calc. Creatinine Clearance 46 mL/min (70-130); Calcium 9.6 mg/dL (7.8-10.44); Carbon Dioxide 31 mmol/L (23-31); Chloride 95 mmol/L (98-107); Glucose 119 mg/dL (80-115); Phosphorus 4.4 mg/dL (2.3-4.7); Potassium 4.4 mmol/L (3.5-5.1); Sodium 133 mmol/L (136-145)
[2020-07-29] MEDS ORDERED: Lisinopril 5 MG TAB PO SCH (09:15)
[2020-07-29] MEDS: Enoxaparin Sodium 40 MG/0.4 ML SYRINGE SC SCH (09:28)
[2020-07-29] MEDS: guaiFENesin ER 600 MG TAB PO SCH ×2 (09:28→21:15)
[2020-07-29] MEDS: FLUoxetine HCl 20 MG CAP PO SCH (09:28)
[2020-07-29] MEDS: Magnesium Oxide 400 MG TAB PO SCH (09:28)
[2020-07-29] MEDS: Diazepam 2 MG TAB PO SCH (09:28)
[2020-07-29] MEDS: Folic Acid 1 MG TAB PO SCH (09:28)
[2020-07-29] MEDS: Aspirin 81 mg Enteric Coated Tablet PO SCH (09:28)
[2020-07-29] MEDS: Nicotine 14 MG PATCH TD SCH (09:28)
[2020-07-29] MEDS: Gabapentin 300 MG CAP PO SCH ×3 (09:28→21:15)
[2020-07-29] MEDS: Thiamine 100 MG TAB PO SCH (09:29)
[2020-07-29] MEDS: Multivit, Therapeutic 1 TAB PO SCH (09:29)
[2020-07-29] MEDS: Acetaminophen 325 MG TAB PO PRN (12:01)
[2020-07-29] MEDS ORDERED: Lorazepam 0.5 MG TAB PO PRN (15:26)
[2020-07-29] MEDS: Lorazepam 0.5 MG TAB PO PRN (15:42)
[2020-07-29] MEDS: traZODone HCl 50 MG TAB PO SCH (21:15)
[2020-07-30 04:36] LABS: Albumin 3.6 g/dL (3.4-4.8); Anion Gap 11 mmol/L (10-20); BUN (Urea Nitrogen) 25 mg/dL (9.8-20.1); BUN/Creatinine Ratio 39.06; Calc. Creatinine Clearance 52 mL/min (70-130); Calcium 9.7 mg/dL (7.8-10.44); Carbon Dioxide 32 mmol/L (23-31); Chloride 92 mmol/L (98-107); Glucose 107 mg/dL (80-115); Phosphorus 4.9 mg/dL (2.3-4.7); Potassium 4.4 mmol/L (3.5-5.1); Sodium 131 mmol/L (136-145)
[2020-07-30] MEDS: Gabapentin 300 MG CAP PO SCH ×3 (09:14→21:02)
[2020-07-30] MEDS: Lisinopril 5 MG TAB PO SCH (09:15)
[2020-07-30] MEDS: FLUoxetine HCl 20 MG CAP PO SCH (09:15)
[2020-07-30] MEDS: Thiamine 100 MG TAB PO SCH (09:15)
[2020-07-30] MEDS: guaiFENesin ER 600 MG TAB PO SCH ×2 (09:15→21:03)
[2020-07-30] MEDS: Enoxaparin Sodium 40 MG/0.4 ML SYRINGE SC SCH (09:15)
[2020-07-30] MEDS: Multivit, Therapeutic 1 TAB PO SCH (09:15)
[2020-07-30] MEDS: Nicotine 14 MG PATCH TD SCH (09:15)
[2020-07-30] MEDS: Aspirin 81 mg Enteric Coated Tablet PO SCH (09:15)
[2020-07-30] MEDS: Magnesium Oxide 400 MG TAB PO SCH (09:15)
[2020-07-30] MEDS: Folic Acid 1 MG TAB PO SCH (09:15)
[2020-07-30] MEDS: Acetaminophen 325 MG TAB PO PRN (11:58)
[2020-07-30] MEDS ORDERED: FLUoxetine HCl 10 MG CAP PO SCH (17:30)
[2020-07-30] MEDS: Lorazepam 0.5 MG TAB PO PRN (18:38)
[2020-07-30] MEDS: traZODone HCl 50 MG TAB PO SCH (21:04)
[2020-07-31 05:09] LABS: Albumin 3.8 g/dL (3.4-4.8); Anion Gap 13 mmol/L (10-20); BUN (Urea Nitrogen) 31 mg/dL (9.8-20.1); BUN/Creatinine Ratio 44.29; Calc. Creatinine Clearance 49 mL/min (70-130); Calcium 9.6 mg/dL (7.8-10.44); Carbon Dioxide 26 mmol/L (23-31); Chloride 94 mmol/L (98-107); Glucose 137 mg/dL (80-115); Hemoglobin 9.4 g/dL (12.0-16.0); Lymphocytes 35 % (21-51); MDiff Complete? YES; Mean Corpuscular HGB CONC 33.5 g/dL (32.0-36.0); Mean Corpuscular Hemoglobin 31.3 pg (27.0-31.0); Mean Corpuscular Volume 93.4 fL (78.0-98.0); Mean Platelet Volume 7.7 fL (7.4-10.4); Metamyelocyte 1 % (0-0); Monocytes 21 % (0-10); Neutrophil 43 % (42-75); Phosphorus 5.1 mg/dL (2.3-4.7); Platelet Count 267 thou/uL (130-400); Platelet Morphology Comment Appears Adequate; Potassium 4.3 mmol/L (3.5-5.1); Sodium 129 mmol/L (136-145); White Blood Cell (WBC) Count 3.4 thou/uL (4.8-10.8)
[2020-07-31] MEDS: Thiamine 100 MG TAB PO SCH (09:02)
[2020-07-31] MEDS: Enoxaparin Sodium 40 MG/0.4 ML SYRINGE SC SCH (09:02)
[2020-07-31] MEDS: Gabapentin 300 MG CAP PO SCH ×3 (09:02→20:18)
[2020-07-31] MEDS: Multivit, Therapeutic 1 TAB PO SCH (09:02)
[2020-07-31] MEDS: Nicotine 14 MG PATCH TD SCH (09:02)
[2020-07-31] MEDS: Lisinopril 5 MG TAB PO SCH (09:02)
[2020-07-31] MEDS: Magnesium Oxide 400 MG TAB PO SCH (09:03)
[2020-07-31] MEDS: FLUoxetine HCl 10 MG CAP PO SCH (09:03)
[2020-07-31] MEDS: Aspirin 81 mg Enteric Coated Tablet PO SCH (09:03)
[2020-07-31] MEDS: guaiFENesin ER 600 MG TAB PO SCH ×2 (09:03→20:17)
[2020-07-31] MEDS: Acetaminophen 325 MG TAB PO PRN ×2 (09:03→15:29)
[2020-07-31] MEDS: Folic Acid 1 MG TAB PO SCH (09:06)
[2020-07-31] MEDS: Sodium Chloride 1 GM TAB PO SCH ×3 (09:07→20:17)
[2020-07-31] MEDS: traMADol HCl 50 MG TAB PO PRN (17:23)
[2020-07-31] MEDS: traZODone HCl 50 MG TAB PO SCH (22:27)
[2020-08-01 06:41] LABS: Mean Corpuscular HGB CONC 33.9 g/dL (32.0-36.0); Mean Corpuscular Hemoglobin 31.3 pg (27.0-31.0); Mean Corpuscular Volume 92.5 fL (78.0-98.0); Mean Platelet Volume 7.6 fL (7.4-10.4); Platelet Count 232 thou/uL (130-400); RBC Distribution Width 15.8 % (11.5-14.5); Red Blood Cell (RBC) Count 2.88 mill/uL (4.20-5.40); White Blood Cell (WBC) Count 3.3 thou/uL (4.8-10.8)
[2020-08-01 06:52] LABS: Anion Gap 14 mmol/L (10-20); BUN (Urea Nitrogen) 38 mg/dL (9.8-20.1); Calc. Creatinine Clearance 47 mL/min (70-130); Calcium 9.8 mg/dL (7.8-10.44); Carbon Dioxide 28 mmol/L (23-31); Chloride 95 mmol/L (98-107); Glucose 94 mg/dL (80-115); Potassium 4.5 mmol/L (3.5-5.1); Sodium 132 mmol/L (136-145)
[2020-08-01 08:33] LABS: Band 5 % (5-11); Hypochromia SLIGHT = 6-15 cells (100X) (0-5/hpf); Lymphocytes 46 % (21-51); MDiff Complete? YES; Monocytes 17 % (0-10); Myelocyte 1 % (0-0); Neutrophil 29 % (42-75); Platelet Morphology Comment Appears Adequate; Polychromasia SLIGHT = 2-3 cells (100X) (0-2/hpf); Reactive Lymphocytes 2 % (0-10)
[2020-08-01] MEDS: Sodium Chloride 1 GM TAB PO SCH ×3 (08:37→20:14)
[2020-08-01] MEDS: Folic Acid 1 MG TAB PO SCH (08:38)
[2020-08-01] MEDS: Thiamine 100 MG TAB PO SCH (08:38)
[2020-08-01] MEDS: Aspirin 81 mg Enteric Coated Tablet PO SCH (08:38)
[2020-08-01] MEDS: FLUoxetine HCl 10 MG CAP PO SCH (08:38)
[2020-08-01] MEDS: Magnesium Oxide 400 MG TAB PO SCH (08:38)
[2020-08-01] MEDS: guaiFENesin ER 600 MG TAB PO SCH ×2 (08:38→20:11)
[2020-08-01] MEDS: Gabapentin 300 MG CAP PO SCH ×3 (08:39→20:11)
[2020-08-01] MEDS: Lisinopril 5 MG TAB PO SCH (08:39)
[2020-08-01] MEDS: Multivit, Therapeutic 1 TAB PO SCH (08:39)
[2020-08-01] MEDS: traMADol HCl 50 MG TAB PO PRN ×2 (08:40→20:10)
[2020-08-01] MEDS: Enoxaparin Sodium 40 MG/0.4 ML SYRINGE SC SCH (08:41)
[2020-08-01] MEDS: Nicotine 14 MG PATCH TD SCH (08:41)
[2020-08-01] MEDS: Lorazepam 0.5 MG TAB PO PRN (14:20)
[2020-08-01] MEDS: traZODone HCl 50 MG TAB PO SCH (21:55)
[2020-08-02 06:41] LABS: Hemoglobin 9.2 g/dL (12.0-16.0)
[2020-08-02] MEDS: Sodium Chloride 1 GM TAB PO SCH ×3 (08:33→21:52)
[2020-08-02] MEDS: Aspirin 81 mg Enteric Coated Tablet PO SCH (08:33)
[2020-08-02] MEDS: FLUoxetine HCl 10 MG CAP PO SCH (08:33)
[2020-08-02] MEDS: guaiFENesin ER 600 MG TAB PO SCH ×2 (08:34→20:28)
[2020-08-02] MEDS: Enoxaparin Sodium 40 MG/0.4 ML SYRINGE SC SCH (08:34)
[2020-08-02] MEDS: Folic Acid 1 MG TAB PO SCH (08:34)
[2020-08-02] MEDS: Multivit, Therapeutic 1 TAB PO SCH (08:34)
[2020-08-02] MEDS: Thiamine 100 MG TAB PO SCH (08:34)
[2020-08-02] MEDS: Lisinopril 5 MG TAB PO SCH (08:34)
[2020-08-02] MEDS: Magnesium Oxide 400 MG TAB PO SCH (08:34)
[2020-08-02] MEDS: Gabapentin 300 MG CAP PO SCH ×3 (08:34→20:28)
[2020-08-02] MEDS: Nicotine 14 MG PATCH TD SCH (08:34)
[2020-08-02] MEDS: traMADol HCl 50 MG TAB PO PRN ×2 (08:37→20:28)
[2020-08-02 10:30] VITALS: BMI 15.6
[2020-08-02] MEDS: traZODone HCl 50 MG TAB PO SCH (20:28)
[2020-08-02] MEDS: hydrOXYzine 25 MG TAB PO PRN (22:33)
[2020-08-03 06:49] LABS: Anion Gap 11 mmol/L (10-20); BUN (Urea Nitrogen) 37 mg/dL (9.8-20.1); Calc. Creatinine Clearance 48 mL/min (70-130); Calcium 9.7 mg/dL (7.8-10.44); Carbon Dioxide 28 mmol/L (23-31); Chloride 97 mmol/L (98-107); Glucose 85 mg/dL (80-115); Potassium 4.3 mmol/L (3.5-5.1); Sodium 132 mmol/L (136-145)
[2020-08-03] MEDS: Sodium Chloride 1 GM TAB PO SCH ×3 (08:39→22:16)
[2020-08-03] MEDS: Gabapentin 300 MG CAP PO SCH ×3 (08:40→22:15)
[2020-08-03] MEDS: Aspirin 81 mg Enteric Coated Tablet PO SCH (08:40)
[2020-08-03] MEDS: Thiamine 100 MG TAB PO SCH (08:40)
[2020-08-03] MEDS: Ferrous Sulfate 325 MG TAB PO SCH (08:40)
[2020-08-03] MEDS: FLUoxetine HCl 10 MG CAP PO SCH (08:41)
[2020-08-03] MEDS: Folic Acid 1 MG TAB PO SCH (08:41)
[2020-08-03] MEDS: guaiFENesin ER 600 MG TAB PO SCH ×2 (08:42→22:16)
[2020-08-03] MEDS: Multivit, Therapeutic 1 TAB PO SCH (08:42)
[2020-08-03] MEDS: Magnesium Oxide 400 MG TAB PO SCH (08:42)
[2020-08-03] MEDS: Enoxaparin Sodium 40 MG/0.4 ML SYRINGE SC SCH (08:42)
[2020-08-03] MEDS: Lisinopril 5 MG TAB PO SCH (08:43)
[2020-08-03] MEDS: Nicotine 14 MG PATCH TD SCH (09:27)
[2020-08-03] MEDS: traMADol HCl 50 MG TAB PO PRN ×2 (10:27→16:56)
[2020-08-03] MEDS: hydrOXYzine 25 MG TAB PO PRN (12:55)
[2020-08-03] MEDS: traZODone HCl 50 MG TAB PO SCH (22:16)
[2020-08-04] MEDS: Enoxaparin Sodium 40 MG/0.4 ML SYRINGE SC SCH (09:18)
[2020-08-04] MEDS: Gabapentin 300 MG CAP PO SCH (09:18)
[2020-08-04] MEDS: FLUoxetine HCl 10 MG CAP PO SCH (09:18)
[2020-08-04] MEDS: Aspirin 81 mg Enteric Coated Tablet PO SCH (09:19)
[2020-08-04] MEDS: Magnesium Oxide 400 MG TAB PO SCH (09:19)
[2020-08-04] MEDS: Thiamine 100 MG TAB PO SCH (09:19)
[2020-08-04] MEDS: guaiFENesin ER 600 MG TAB PO SCH (09:19)
[2020-08-04] MEDS: Folic Acid 1 MG TAB PO SCH (09:19)
[2020-08-04] MEDS: Multivit, Therapeutic 1 TAB PO SCH (09:19)
[2020-08-04] MEDS: Lisinopril 5 MG TAB PO SCH (09:19)
[2020-08-04] MEDS: Ferrous Sulfate 325 MG TAB PO SCH (09:20)
[2020-08-04] MEDS: Sodium Chloride 1 GM TAB PO SCH (09:20)
[2020-08-04] MEDS: traMADol HCl 50 MG TAB PO PRN (12:14)
[2020-08-04] MEDS: Nicotine 14 MG PATCH TD SCH (12:16)
[2020-08-04 15:26] VITALS: BP 137/77; TEMP 97.7
== END 2020-08-04 16:50 | DRG 641 ==
LOC: ERS 16:27 → T4-B 19:57 → 2NO 07-26 02:25 → T4-A 07-31 14:31
PROVIDERS: ADMIT Student in an Organized Health Care Education/Training Program; ATTEND Internal Medicine
PROC: HZ2ZZZZ Detoxification Services for Substance Abuse Treatment (ICD-10-PCS; principal; 2020-07-25)
DX: E87.1 Hypo-osmolality and hyponatremia (principal); F10.239 Alcohol dependence with withdrawal, unspecified; R64 Cachexia; M84.422A Pathological fracture, left humerus, initial encounter for fracture; E44.0 Moderate protein-calorie malnutrition; Z68.1 Body mass index [BMI] 19.9 or less, adult; F10.288 Alcohol dependence with other alcohol-induced disorder; Z20.822 Contact with and (suspected) exposure to COVID-19; F32.9 Major depressive disorder, single episode, unspecified; F17.210 Nicotine dependence, cigarettes, uncomplicated; F41.9 Anxiety disorder, unspecified; D50.9 Iron deficiency anemia, unspecified; F10.229 Alcohol dependence with intoxication, unspecified; Y90.8 Blood alcohol level of 240 mg/100 ml or more; I10 Essential (primary) hypertension; J44.9 Chronic obstructive pulmonary disease, unspecified; R79.89 Other specified abnormal findings of blood chemistry; Z79.899 Other long term (current) drug therapy; Z79.82 Long term (current) use of aspirin
CPT/HCPCS: 36415; 70450; 71045; 80048; 80053; 80069; 80307; 81001; 82274; 83735; 83930; 83935; 84100; 85007; 85014; 85018; 85025; 85027; 93005; 96365; 96366; 96375; 99283; J0360; J1650; J2060; J2405; J2597; J3411; J3475; J3490; J7042; J7070; Q0162; U0002; U0005

== ENCOUNTER 2020-08-06 01:45 | Emergency (ER) | payer MEDICARE ==
[2020-08-06] MEDS ORDERED: Ondansetron ODT 4 MG TAB ONE (02:40)
[2020-08-06 03:15] LABS: Hemoglobin 10.8 g/dL (12.0-16.0); Mean Corpuscular HGB CONC 35.2 g/dL (32.0-36.0); Mean Corpuscular Hemoglobin 31.5 pg (27.0-31.0); Mean Corpuscular Volume 89.5 fL (78.0-98.0); Mean Platelet Volume 7.6 fL (7.4-10.4); Platelet Count 327 thou/uL (130-400); RBC Distribution Width 15.6 % (11.5-14.5); Red Blood Cell (RBC) Count 3.45 mill/uL (4.20-5.40); White Blood Cell (WBC) Count 4.1 thou/uL (4.8-10.8)
[2020-08-06 03:18] LABS: ALT (SGPT) 36 U/L (8-55); AST (SGOT) 31 U/L (5-34); Albumin 4.6 g/dL (3.4-4.8); Alkaline Phosphatase 107 U/L (40-110); Anion Gap 17 mmol/L (10-20); BUN (Urea Nitrogen) 14 mg/dL (9.8-20.1); Bilirubin, Total 0.2 mg/dL (0.2-1.2); Calc. Creatinine Clearance 0 mL/min (70-130); Calcium 9.5 mg/dL (7.8-10.44); Carbon Dioxide 21 mmol/L (23-31); Chloride 93 mmol/L (98-107); Globulin 3.6 g/dL (2.4-3.5); Glucose 92 mg/dL (80-115); Lipase 49 U/L (8-78); Potassium 3.8 mmol/L (3.5-5.1); Protein, Total 8.2 g/dL (5.8-8.1); Sodium 127 mmol/L (136-145)
[2020-08-06 05:04] LABS: Band 6 % (5-11); Lymphocytes 27 % (21-51); MDiff Complete? YES; Monocytes 18 % (0-10); Neutrophil 49 % (42-75)
== END 2020-08-06 05:23 | disposition home or self-care (01) ==
LOC: ERS 01:45
DX: R11.2 Nausea with vomiting, unspecified (principal); I10 Essential (primary) hypertension; F17.210 Nicotine dependence, cigarettes, uncomplicated
CPT/HCPCS: 36415; 80053; 83690; 85025; 99284; Q0162

== ENCOUNTER 2020-08-09 17:59 | Emergency (ER) | payer MEDICARE ==
[2020-08-09] MEDS ORDERED: Morphine 4 MG/ML VIAL ONE (18:30)
[2020-08-09] MEDS ORDERED: Ketorolac Tromethamine 30 MG/ML VIAL ONE (18:30)
[2020-08-09 18:36] LABS: #Basophils 0.1 thou/uL (0.0-0.2); #Monocytes 0.5 thou/uL (0.11-0.59); #Neutrophils 1.9 thou/uL (1.40-6.50); %Basophils 1.6 % (0.0-1.0); %Eosinophils 0.2 % (0.0-10.0); %Lymphocytes 29.6 % (21.0-51.0); %Monocytes 14.4 % (0.0-10.0); %Neutrophils 54.2 % (42.0-75.0); Hemoglobin 11.5 g/dL (12.0-16.0); Mean Corpuscular HGB CONC 34.9 g/dL (32.0-36.0); Mean Corpuscular Hemoglobin 31.3 pg (27.0-31.0); Mean Corpuscular Volume 89.5 fL (78.0-98.0); Mean Platelet Volume 7.3 fL (7.4-10.4); Platelet Count 344 thou/uL (130-400); RBC Distribution Width 14.9 % (11.5-14.5); Red Blood Cell (RBC) Count 3.68 mill/uL (4.20-5.40); White Blood Cell (WBC) Count 3.4 thou/uL (4.8-10.8)
[2020-08-09 18:55] LABS: Alcohol Less than 10 mg/dL (Less than 10); Salicylate Less than 8.0 mg/dL (15.0-30.0)
[2020-08-09 18:56] LABS: ALT (SGPT) 60 U/L (8-55); AST (SGOT) 46 U/L (5-34); Albumin 4.3 g/dL (3.4-4.8); Alkaline Phosphatase 111 U/L (40-110); Anion Gap 14 mmol/L (10-20); BUN (Urea Nitrogen) 13 mg/dL (9.8-20.1); Bilirubin, Total 0.4 mg/dL (0.2-1.2); Calc. Creatinine Clearance 0 mL/min (70-130); Calcium 9.7 mg/dL (7.8-10.44); Carbon Dioxide 24 mmol/L (23-31); Chloride 93 mmol/L (98-107); Globulin 3.2 g/dL (2.4-3.5); Glucose 90 mg/dL (80-115); Potassium 3.8 mmol/L (3.5-5.1); Protein, Total 7.5 g/dL (5.8-8.1); Sodium 127 mmol/L (136-145)
[2020-08-09] MEDS ORDERED: PROPOFOL 0 ML ONE (19:33)
[2020-08-09] MEDS ORDERED: Propofol 1,000 MG/100 ML VIAL IV ONE (19:33)
[2020-08-09] MEDS ORDERED: Fentanyl 100 MCG/2 ML VIAL ONE (19:33)
== END 2020-08-09 21:18 | disposition home or self-care (01) ==
LOC: ERS 17:59
DX: T84.020A Dislocation of internal right hip prosthesis, initial encounter (principal); X50.9XXA Other and unspecified overexertion or strenuous movements or postures, initial encounter; I10 Essential (primary) hypertension; F17.210 Nicotine dependence, cigarettes, uncomplicated
CPT/HCPCS: 27265; 36415; 72170; 80053; 80307; 85025; 96374; 96375; J1885; J2270; J2704; J3010

== ENCOUNTER 2020-08-28 18:01 | Observation (INO) | payer MEDICARE ==
[2020-08-28] MEDS ORDERED: Ketorolac Tromethamine 30 MG/ML VIAL ONE (18:29)
[2020-08-28] MEDS ORDERED: Ketamine 50 MG/ML (10ML VIAL) ONE (19:12)
[2020-08-28 19:59] LABS: #Lymphocytes 2.3 thou/uL (1.20-3.40); #Monocytes 0.7 thou/uL (0.11-0.59); #Neutrophils 1.9 thou/uL (1.40-6.50); %Basophils 0.6 % (0.0-1.0); %Eosinophils 0.2 % (0.0-10.0); %Lymphocytes 46.4 % (21.0-51.0); %Monocytes 13.3 % (0.0-10.0); %Neutrophils 39.5 % (42.0-75.0); Hemoglobin 11.7 g/dL (12.0-16.0); Mean Corpuscular HGB CONC 32.4 g/dL (32.0-36.0); Mean Corpuscular Hemoglobin 28.8 pg (27.0-31.0); Mean Platelet Volume 7.6 fL (7.4-10.4); Platelet Count 248 thou/uL (130-400); RBC Distribution Width 14.5 % (11.5-14.5); Red Blood Cell (RBC) Count 4.05 mill/uL (4.20-5.40); White Blood Cell (WBC) Count 4.9 thou/uL (4.8-10.8)
[2020-08-28 20:16] LABS: ALT (SGPT) 17 U/L (8-55); AST (SGOT) 29 U/L (5-34); Albumin 4.4 g/dL (3.4-4.8); Alkaline Phosphatase 102 U/L (40-110); Anion Gap 21 mmol/L (10-20); BUN (Urea Nitrogen) 12 mg/dL (9.8-20.1); Bilirubin, Total 0.3 mg/dL (0.2-1.2); Calc. Creatinine Clearance 0 mL/min (70-130); Calcium 9.5 mg/dL (7.8-10.44); Carbon Dioxide 16 mmol/L (23-31); Chloride 92 mmol/L (98-107); Globulin 3.2 g/dL (2.4-3.5); Glucose 86 mg/dL (80-115); Potassium 4.6 mmol/L (3.5-5.1); Protein, Total 7.6 g/dL (5.8-8.1); Sodium 124 mmol/L (136-145)
[2020-08-28 20:25] LABS: SARS-CoV-2 NAA Rapid Test Not Detected (NotDetected)
[2020-08-28] MEDS ORDERED: Fentanyl 100 MCG/2 ML VIAL ONE (20:36)
[2020-08-28] MEDS ORDERED: PROPOFOL 200 MG/20 ML VIAL ONE (21:28)
[2020-08-28] MEDS ORDERED: Lidocaine 1% PF 5 ML VIAL ONE (21:28)
[2020-08-28] MEDS ORDERED: Succinylcholine 200 MG/10 ml SYRINGE FS ONE (21:28)
[2020-08-28] MEDS ORDERED: Ondansetron PF 4 MG/2 ML Vial ONE (22:17)
[2020-08-28] MEDS ORDERED: Promethazine HCl 25 MG/ML VIAL IVPB PRN (22:23)
[2020-08-28] MEDS ORDERED: Promethazine HCl 25 MG/ML VIAL IM PRN (22:23)
[2020-08-28] MEDS ORDERED: Ondansetron HCl/PF 4 MG/2 ML Vial IVP PRN (22:23)
[2020-08-28] MEDS ORDERED: Promethazine HCl 25 MG/ML VIAL ONE (22:29)
[2020-08-28] MEDS: Sodium Chloride 0.9% 1,000 ML IV SCH (23:07)
[2020-08-28] MEDS: Fentanyl 100 MCG/2 ML VIAL SLOW IVP PRN (23:45)
[2020-08-29] MEDS: Fentanyl 100 MCG/2 ML VIAL SLOW IVP PRN ×5 (00:37→08:54)
[2020-08-29] MEDS: HYDROcodone/Acetaminophen 10/325 mg Tablet PO PRN ×4 (00:40→19:55)
[2020-08-29] MEDS ORDERED: Promethazine HCl 25 MG/ML VIAL IM PRN (04:44)
[2020-08-29] MEDS: Ondansetron PF 4 MG/2 ML Vial IVP PRN ×2 (04:50→08:54)
[2020-08-29] MEDS: Sodium Chloride 0.9% 1,000 ML IV SCH ×2 (08:54→18:37)
[2020-08-30] MEDS: Ondansetron PF 4 MG/2 ML Vial IVP PRN (03:04)
[2020-08-30] MEDS: Sodium Chloride 0.9% 1,000 ML IV SCH (03:06)
[2020-08-30] MEDS ORDERED: Lisinopril 5 MG TAB PO SCH (09:00)
[2020-08-30] MEDS: HYDROcodone/Acetaminophen 10/325 mg Tablet PO PRN (09:21)
[2020-08-30] MEDS ORDERED: diphenhydrAMINE 25 MG CAP PO PRN (09:57)
[2020-08-30 11:49] VITALS: BP 181/66; TEMP 97.6
[2020-08-30] MEDS ORDERED: traZODone HCl 50 MG TAB PO SCH (21:00)
[2020-08-31] MEDS ORDERED: Aspirin 81 mg Enteric Coated Tablet PO SCH (09:00)
[2020-08-31] MEDS ORDERED: Lisinopril 5 MG TAB PO SCH (09:00)
== END 2020-08-30 11:40 | disposition home or self-care (01) ==
LOC: ERS 18:01 → SDC/OP 22:00 → INTOOBSV 22:09 → SURG B 22:09
PROVIDERS: ADMIT Surgery; ATTEND Surgery
PROC: 0SWRXJZ Revision of Synthetic Substitute in Right Hip Joint, Femoral Surface, External Approach (ICD-10-PCS; principal; 2020-08-28)
DX: T84.020A Dislocation of internal right hip prosthesis, initial encounter (principal); F10.10 Alcohol abuse, uncomplicated; F17.210 Nicotine dependence, cigarettes, uncomplicated; I10 Essential (primary) hypertension; Z79.82 Long term (current) use of aspirin; Z79.899 Other long term (current) drug therapy; Z88.1 Allergy status to other antibiotic agents; Z20.822 Contact with and (suspected) exposure to COVID-19; Y90.6 Blood alcohol level of 120-199 mg/100 ml; Y79.2 Prosthetic and other implants, materials and accessory orthopedic devices associated with adverse incidents
CPT/HCPCS: 27266; 51702; 71045; 73501; 73502; 76000; 80053; 80307; 85025; 93005; 96372; 96375 ×2; 96376 ×2; 97110; 97139; 97530; 99152; 99285; G0378 ×3; U0002; U0005; 36415; J1885; J2405; J2550; J2704; J3010; Q0163

== ENCOUNTER 2020-09-05 22:49 | Emergency (ER) | payer MEDICARE | END 2020-09-05 23:14 | disposition left against medical advice (07) | LOC: ERS 22:49 | DX: Z53.21 Procedure and treatment not carried out due to patient leaving prior to being seen by health care provider (principal) ==

== ENCOUNTER 2020-10-27 18:25 | Emergency (ER) | payer MEDICARE | END 2020-10-27 19:30 | disposition left against medical advice (07) | LOC: ERS 18:25 | DX: Z53.21 Procedure and treatment not carried out due to patient leaving prior to being seen by health care provider (principal) ==

== ENCOUNTER 2020-10-31 02:47 | Emergency (ER) | payer MEDICARE ==
[2020-10-31] MEDS ORDERED: PROPOFOL 20 ML ONE (03:30)
== END 2020-10-31 04:18 | disposition home or self-care (01) ==
LOC: ERS 02:47
DX: T84.020A Dislocation of internal right hip prosthesis, initial encounter (principal); F17.210 Nicotine dependence, cigarettes, uncomplicated; Z96.641 Presence of right artificial hip joint; X50.9XXA Other and unspecified overexertion or strenuous movements or postures, initial encounter
CPT/HCPCS: 27265; 72170; J2704

== ENCOUNTER 2020-11-12 17:14 | Emergency (ER) | payer MEDICARE | END 2020-11-12 17:40 | disposition home or self-care (01) | LOC: ERS 17:14 | DX: M25.512 Pain in left shoulder (principal); M79.602 Pain in left arm; G89.29 Other chronic pain; F17.210 Nicotine dependence, cigarettes, uncomplicated; Z79.82 Long term (current) use of aspirin; Z79.899 Other long term (current) drug therapy | CPT/HCPCS: 99281 ==

== ENCOUNTER 2020-12-07 21:53 | Emergency (ER) | payer MEDICARE | END 2020-12-07 22:12 | disposition left against medical advice (07) | LOC: ERS 21:53 | DX: Z53.21 Procedure and treatment not carried out due to patient leaving prior to being seen by health care provider (principal) ==

== ENCOUNTER 2020-12-08 20:46 | Emergency (ER) | payer MEDICARE | END 2020-12-08 21:45 | disposition left against medical advice (07) | LOC: ERS 20:46 | DX: R11.2 Nausea with vomiting, unspecified (principal); R26.9 Unspecified abnormalities of gait and mobility; R47.81 Slurred speech | CPT/HCPCS: 93005; 99284 ==

== ENCOUNTER 2020-12-09 00:40 | Emergency (ER) | payer MEDICARE ==
[2020-12-09] MEDS ORDERED: Ondansetron ODT 8 MG TAB ONE (02:35)
== END 2020-12-09 03:07 | disposition home or self-care (01) ==
LOC: ERS 00:40
DX: R11.2 Nausea with vomiting, unspecified (principal)
CPT/HCPCS: 99284; Q0162

== ENCOUNTER 2021-01-20 04:28 | Emergency (ER) | payer MEDICARE | END 2021-01-20 05:26 | disposition left against medical advice (07) | LOC: ERS 04:28 | DX: R11.2 Nausea with vomiting, unspecified (principal); I10 Essential (primary) hypertension ==

== ENCOUNTER 2021-01-25 13:42 | Emergency (ER) | payer MEDICARE ==
[2021-01-25] MEDS ORDERED: Albuterol 200 PUFF (6.7GM INHALER) ONE (15:05)
== END 2021-01-25 16:17 | disposition home or self-care (01) ==
LOC: ERS 13:42
DX: J44.1 Chronic obstructive pulmonary disease with (acute) exacerbation (principal); I10 Essential (primary) hypertension; F17.210 Nicotine dependence, cigarettes, uncomplicated
CPT/HCPCS: 71045

== ENCOUNTER 2021-01-26 02:11 | Emergency (ER) | payer MEDICARE ==
[2021-01-26] MEDS ORDERED: Ondansetron ODT 4 MG TAB ONE (02:57)
== END 2021-01-26 03:07 | disposition home or self-care (01) ==
LOC: ERS 02:11
DX: R06.02 Shortness of breath (principal); R11.2 Nausea with vomiting, unspecified; I10 Essential (primary) hypertension; J44.9 Chronic obstructive pulmonary disease, unspecified; F17.210 Nicotine dependence, cigarettes, uncomplicated
CPT/HCPCS: 99284; Q0162

== ENCOUNTER 2021-02-10 15:27 | Emergency (ER) | payer MEDICARE ==
[2021-02-10 16:40] LABS: #Lymphocytes 0.8 thou/uL (1.20-3.40); #Monocytes 0.4 thou/uL (0.11-0.59); #Neutrophils 2.4 thou/uL (1.40-6.50); %Basophils 0.8 % (0.0-1.0); %Monocytes 11.2 % (0.0-10.0); Hemoglobin 13.2 g/dL (12.0-16.0); Mean Corpuscular HGB CONC 34.8 g/dL (32.0-36.0); Mean Corpuscular Hemoglobin 32.1 pg (27.0-31.0); Mean Corpuscular Volume 92.1 fL (78.0-98.0); Mean Platelet Volume 6.3 fL (7.4-10.4); Platelet Count 419 thou/uL (130-400); RBC Distribution Width 16.1 % (11.5-14.5); Red Blood Cell (RBC) Count 4.11 mill/uL (4.20-5.40); White Blood Cell (WBC) Count 3.6 thou/uL (4.8-10.8)
[2021-02-10 17:04] LABS: ALT (SGPT) 74 U/L (8-55); AST (SGOT) 108 U/L (5-34); Albumin 4.4 g/dL (3.4-4.8); Alkaline Phosphatase 137 U/L (40-110); Anion Gap 18 mmol/L (10-20); BUN (Urea Nitrogen) Less than 4 mg/dL (9.8-20.1); Bilirubin, Total 0.6 mg/dL (0.2-1.2); Calc. Creatinine Clearance 0 mL/min (70-130); Calcium 10.1 mg/dL (7.8-10.44); Carbon Dioxide 29 mmol/L (23-31); Chloride 80 mmol/L (98-107); Globulin 3.5 g/dL (2.4-3.5); Glucose 96 mg/dL (83-110); Magnesium 1.9 mg/dL (1.6-2.6); Protein, Total 7.9 g/dL (5.8-8.1); Sodium 124 mmol/L (136-145)
[2021-02-10 17:15] LABS: Potassium 2.9 mmol/L (3.5-5.1)
[2021-02-10] MEDS ORDERED: Potassium Chloride 20 MEQ TAB ONE (19:10)
== END 2021-02-10 19:00 | disposition home or self-care (01) ==
LOC: ERS 15:27
DX: S32.591A Other specified fracture of right pubis, initial encounter for closed fracture (principal); E87.6 Hypokalemia; E87.1 Hypo-osmolality and hyponatremia; W19.XXXA Unspecified fall, initial encounter; I10 Essential (primary) hypertension; J44.9 Chronic obstructive pulmonary disease, unspecified; F17.210 Nicotine dependence, cigarettes, uncomplicated; Z79.899 Other long term (current) drug therapy
CPT/HCPCS: 36415; 80053; 83735; 85025; 93005

== ENCOUNTER 2021-02-14 21:52 | Emergency (ER) | payer MEDICARE ==
[2021-02-14 22:50] LABS: Hemoglobin 10.2 g/dL (12.0-16.0); Mean Corpuscular HGB CONC 34.4 g/dL (32.0-36.0); Mean Corpuscular Hemoglobin 31.7 pg (27.0-31.0); Mean Corpuscular Volume 92.1 fL (78.0-98.0); Mean Platelet Volume 6.3 fL (7.4-10.4); Platelet Count 320 thou/uL (130-400); RBC Distribution Width 15.4 % (11.5-14.5); Red Blood Cell (RBC) Count 3.23 mill/uL (4.20-5.40); White Blood Cell (WBC) Count 3.1 thou/uL (4.8-10.8)
[2021-02-14 23:11] LABS: Band 8 % (5-11); Lymphocytes 38 % (21-51); MDiff Complete? YES; Monocytes 19 % (0-10); Neutrophil 35 % (42-75); Platelet Morphology Comment Appears Adequate; RBC Morphology Normal
[2021-02-14 23:18] LABS: ALT (SGPT) 27 U/L (8-55); AST (SGOT) 25 U/L (5-34); Albumin 3.5 g/dL (3.4-4.8); Alkaline Phosphatase 100 U/L (40-110); Anion Gap 13 mmol/L (10-20); BUN (Urea Nitrogen) 7 mg/dL (9.8-20.1); Bilirubin, Total 0.4 mg/dL (0.2-1.2); Calc. Creatinine Clearance 0 mL/min (70-130); Calcium 8.9 mg/dL (7.8-10.44); Carbon Dioxide 28 mmol/L (23-31); Chloride 83 mmol/L (98-107); Globulin 2.5 g/dL (2.4-3.5); Glucose 103 mg/dL (83-110); Sodium 122 mmol/L (136-145)
[2021-02-14 23:21] LABS: Potassium 2.4 mmol/L (3.5-5.1)
[2021-02-14] MEDS ORDERED: Potassium Chloride 20 MEQ TAB ONE (23:30)
[2021-02-14] MEDS ORDERED: Potassium Chloride 20 MEQ/100 ML PREMIX BAG ONE (23:30)
[2021-02-14 23:38] LABS: Bilirubin Negative (Negative); Blood, Urine Negative (Negative); Clarity Clear (Clear); Glucose, Urine (Dipstick) Normal (Negative); Ketone, Urine Negative (Negative); Leukocyte Negative Leu/uL (Negative); Nitrite Negative (Negative); Protein, Urine (Dipstick) Negative (Neg-Trace); Specific Gravity, Urine 1.002 (1.002-1.036); Urobilinogen Normal mg/dL (Less than 2); pH, Urine 5.5 (5.0-9.0)
[2021-02-14 23:46] LABS: Magnesium 1.5 mg/dL (1.6-2.6)
[2021-02-14 23:47] LABS: Amphetamine Not Detected (NotDetected); Barbiturates Screen Not Detected (NotDetected); Benzodiazepine Screen Not Detected (NotDetected); Cocaine Metabolite Screen Not Detected (NotDetected); Methadone Not Detected (NotDetected); Methamphetamine Not Detected (NotDetected); Opiate Screen Not Detected (NotDetected); Oxycodone Screen Not Detected (NotDetected); Phencyclidine (PCP) Not Detected (NotDetected); THC/Cannabinoid Screen Not Detected (NotDetected); Tricyclic Screen Not Detected (NotDetected)
[2021-02-15] MEDS ORDERED: Magnesium Oxide 400 MG TAB PO SCH (00:15)
[2021-02-15 14:09] LABS: SARS-CoV-2 PCR by NAA Not Detected (NotDetected)
== END 2021-02-15 04:50 | disposition home or self-care (01) ==
LOC: ERS 21:52
DX: M25.551 Pain in right hip (principal); J44.9 Chronic obstructive pulmonary disease, unspecified; I10 Essential (primary) hypertension; F17.210 Nicotine dependence, cigarettes, uncomplicated; Z20.822 Contact with and (suspected) exposure to COVID-19
CPT/HCPCS: 71045; 72170; 80053; 80306; 81003; 83735; 84484; 85025; 93005; U0003; U0005; 36415; 96365; 96366; J3480

== ENCOUNTER 2021-02-19 08:41 | Emergency (ER) | payer OTHER, MEDICARE ==
[2021-02-19] MEDS ORDERED: Ketorolac Tromethamine 30 MG/ML VIAL ONE (08:51)
== END 2021-02-19 11:35 | disposition home or self-care (01) ==
LOC: ERS 08:41
DX: S32.591A Other specified fracture of right pubis, initial encounter for closed fracture (principal); I10 Essential (primary) hypertension; J44.9 Chronic obstructive pulmonary disease, unspecified; F17.210 Nicotine dependence, cigarettes, uncomplicated; W01.0XXA Fall on same level from slipping, tripping and stumbling without subsequent striking against object, initial encounter
CPT/HCPCS: 72170; 96372; J1885

== ENCOUNTER 2021-04-07 18:02 | Emergency (ER) | payer MEDICARE ==
[2021-04-07] MEDS ORDERED: Ibuprofen 800 MG TAB ONE (22:19)
== END 2021-04-07 21:30 | disposition home or self-care (01) ==
LOC: ERS 18:02
DX: M25.571 Pain in right ankle and joints of right foot (principal); I10 Essential (primary) hypertension; J44.9 Chronic obstructive pulmonary disease, unspecified; F17.210 Nicotine dependence, cigarettes, uncomplicated

== ENCOUNTER 2021-04-09 22:11 | Emergency (ER) | payer MEDICARE ==
[2021-04-09] MEDS ORDERED: Ketorolac Tromethamine 30 MG/ML VIAL ONE (23:01)
[2021-04-10 00:59] LABS: Hemoglobin 11.8 g/dL (12.0-16.0); Mean Corpuscular HGB CONC 33.6 g/dL (32.0-36.0); Mean Corpuscular Hemoglobin 31.5 pg (27.0-31.0); Mean Corpuscular Volume 93.9 fL (78.0-98.0); Mean Platelet Volume 7.4 fL (7.4-10.4); Platelet Count 266 thou/uL (130-400); RBC Distribution Width 15.8 % (11.5-14.5); Red Blood Cell (RBC) Count 3.75 mill/uL (4.20-5.40); White Blood Cell (WBC) Count 4.8 thou/uL (4.8-10.8)
[2021-04-10 01:13] LABS: Bacteria/HPF None Seen HPF (None Seen); Bilirubin Negative (Negative); Blood, Urine Trace (Negative); Clarity Clear (Clear); Glucose, Urine (Dipstick) Normal (Negative); Ketone, Urine Negative (Negative); Leukocyte Negative Leu/uL (Negative); Nitrite Negative (Negative); Protein, Urine (Dipstick) 10 mg/dL (Neg-Trace); RBC/HPF 0-3 HPF (0-3); Specific Gravity, Urine 1.018 (1.002-1.036); Squamous Epithelial 0-3 HPF (0-3); Urobilinogen Normal mg/dL (Less than 2); WBC/HPF 0-3 HPF (0-3); pH, Urine 5.5 (5.0-9.0)
[2021-04-10 01:18] LABS: Anion Gap 12 mmol/L (10-20); BUN (Urea Nitrogen) 21 mg/dL (9.8-20.1); Calc. Creatinine Clearance 0 mL/min (70-130); Calcium 9.6 mg/dL (7.8-10.44); Carbon Dioxide 25 mmol/L (23-31); Chloride 97 mmol/L (98-107); Glucose 91 mg/dL (83-110); Potassium 3.2 mmol/L (3.5-5.1); Sodium 131 mmol/L (136-145)
[2021-04-10 01:21] LABS: Band 1 % (5-11); Lymphocytes 34 % (21-51); MDiff Complete? YES; Monocytes 19 % (0-10); Neutrophil 45 % (42-75); Platelet Morphology Comment Appears Adequate; RBC Morphology Normal
== END 2021-04-10 01:35 | disposition home or self-care (01) ==
LOC: ERS 22:11
DX: R60.0 Localized edema (principal); I10 Essential (primary) hypertension; J44.9 Chronic obstructive pulmonary disease, unspecified; F17.210 Nicotine dependence, cigarettes, uncomplicated
CPT/HCPCS: 36415; 80048; 81003; 81015; 85025; 96372; J1885

== ENCOUNTER 2021-09-17 21:28 | Emergency (ER) | payer MEDICARE | END 2021-09-17 21:59 | disposition left against medical advice (07) | LOC: ERS 21:28 | DX: R07.9 Chest pain, unspecified (principal); I10 Essential (primary) hypertension; J44.9 Chronic obstructive pulmonary disease, unspecified; F17.210 Nicotine dependence, cigarettes, uncomplicated | CPT/HCPCS: 93005 ==

== ENCOUNTER 2021-09-19 20:17 | Emergency (ER) | payer MEDICARE | END 2021-09-19 20:58 | disposition left against medical advice (07) | LOC: ERS 20:17 | DX: R11.0 Nausea (principal); I10 Essential (primary) hypertension; J44.9 Chronic obstructive pulmonary disease, unspecified; F17.210 Nicotine dependence, cigarettes, uncomplicated | CPT/HCPCS: 99283 ==

== ENCOUNTER 2021-09-20 20:07 | Inpatient (IN) | payer MEDICARE, SELFPAY ==
[2021-09-20] MEDS ORDERED: diphenhydrAMINE 25 MG CAP ONE (23:51)
[2021-09-20] MEDS ORDERED: Haloperidol Lactate 5 MG/ML VIAL ONE (23:51)
[2021-09-20 23:58] LABS: Hemoglobin 12.4 g/dL (12.0-16.0); Mean Corpuscular HGB CONC 35.4 g/dL (32.0-36.0); Mean Corpuscular Hemoglobin 33.5 pg (27.0-31.0); Mean Corpuscular Volume 94.8 fL (78.0-98.0); Mean Platelet Volume 7.4 fL (7.4-10.4); Platelet Count 217 thou/uL (130-400); RBC Distribution Width 13.3 % (11.5-14.5); Red Blood Cell (RBC) Count 3.69 mill/uL (4.20-5.40); White Blood Cell (WBC) Count 5.8 thou/uL (4.8-10.8)
[2021-09-21 00:08] LABS: ALT (SGPT) 64 U/L (8-55); AST (SGOT) 102 U/L (5-34); Albumin 4.1 g/dL (3.4-4.8); Alkaline Phosphatase 75 U/L (40-110); Anion Gap 18 mmol/L (10-20); BUN (Urea Nitrogen) Less than 4 mg/dL (9.8-20.1); Bilirubin, Total 0.4 mg/dL (0.2-1.2); Calc. Creatinine Clearance 0 mL/min (70-130); Calcium 9.1 mg/dL (7.8-10.44); Carbon Dioxide 21 mmol/L (23-31); Chloride 76 mmol/L (98-107); Estimated GFR 97; Globulin 2.6 g/dL (2.4-3.5); Glucose 100 mg/dL (83-110); Lipase 56 U/L (8-78); Magnesium 1.8 mg/dL (1.6-2.6); Potassium 3.6 mmol/L (3.5-5.1); Protein, Total 6.7 g/dL (5.8-8.1)
[2021-09-21 00:17] LABS: Sodium 111 mmol/L (136-145)
[2021-09-21 00:18] LABS: Band 16 % (5-11); Lymphocytes 40 % (21-51); MDiff Complete? YES; Monocytes 7 % (0-10); Neutrophil 37 % (42-75)
[2021-09-21 01:21] LABS: Acetaminophen Less than 10.0 mcg/mL (10.0-30.0); Alcohol 141 mg/dL (Less than 10); Salicylate Less than 8.0 mg/dL (15.0-30.0)
[2021-09-21 01:44] LABS: Bacteria/HPF None Seen HPF (None Seen); Bilirubin Negative (Negative); Blood, Urine Trace (Negative); Clarity Clear (Clear); Glucose, Urine (Dipstick) Normal (Negative); Ketone, Urine Negative (Negative); Leukocyte Negative Leu/uL (Negative); Nitrite Negative (Negative); Protein, Urine (Dipstick) Negative (Neg-Trace); RBC/HPF None Seen HPF (0-3); Specific Gravity, Urine 1.003 (1.002-1.036); Squamous Epithelial None Seen HPF (0-3); Urobilinogen Normal mg/dL (Less than 2); WBC/HPF None Seen HPF (0-3); pH, Urine 5.5 (5.0-9.0)
[2021-09-21] MEDS ORDERED: Ondansetron ODT 4 MG TAB PO PRN ×2 (02:54→05:38)
[2021-09-21] MEDS ORDERED: Ondansetron PF 4 MG/2 ML Vial IVP PRN (02:54)
[2021-09-21] MEDS ORDERED: Acetaminophen 650 MG Suppository PR PRN (02:54)
[2021-09-21 03:59] LABS: Anion Gap 18 mmol/L (10-20); BUN (Urea Nitrogen) Less than 4 mg/dL (9.8-20.1); Calc. Creatinine Clearance 0 mL/min (70-130); Calcium 8.7 mg/dL (7.8-10.44); Carbon Dioxide 19 mmol/L (23-31); Chloride 87 mmol/L (98-107); Estimated GFR 97; Glucose 87 mg/dL (83-110); Sodium 120 mmol/L (136-145)
[2021-09-21] MEDS ORDERED: Lorazepam 2 MG/ML VIAL IM PRN (05:38)
[2021-09-21] MEDS ORDERED: Electrolyte Replacement Protocol 1 EACH FS SCH (05:45)
[2021-09-21] MEDS ORDERED: Ondansetron PF 4 MG/2 ML Vial ONE (06:18)
[2021-09-21 06:43] LABS: Bilirubin, Direct 0.3 mg/dL (0.1-0.3); Phosphorus 3.3 mg/dL (2.3-4.7)
[2021-09-21 06:45] LABS: ALT (SGPT) 65 U/L (8-55); AST (SGOT) 110 U/L (5-34); Albumin 3.9 g/dL (3.4-4.8); Alkaline Phosphatase 77 U/L (40-110); Anion Gap 13 mmol/L (10-20); BUN (Urea Nitrogen) 5 mg/dL (9.8-20.1); Bilirubin, Total 0.4 mg/dL (0.2-1.2); Calc. Creatinine Clearance 0 mL/min (70-130); Calcium 9.2 mg/dL (7.8-10.44); Carbon Dioxide 27 mmol/L (23-31); Chloride 86 mmol/L (98-107); Estimated GFR 95; Globulin 2.6 g/dL (2.4-3.5); Glucose 99 mg/dL (83-110); Magnesium 1.8 mg/dL (1.6-2.6); Potassium 3.7 mmol/L (3.5-5.1); Protein, Total 6.5 g/dL (5.8-8.1); Sodium 122 mmol/L (136-145)
[2021-09-21 07:09] LABS: Hemoglobin 12.6 g/dL (12.0-16.0); Mean Corpuscular HGB CONC 34.5 g/dL (32.0-36.0); Mean Corpuscular Hemoglobin 33.1 pg (27.0-31.0); Mean Corpuscular Volume 95.9 fL (78.0-98.0); Mean Platelet Volume 7.8 fL (7.4-10.4); Platelet Count 214 thou/uL (130-400); RBC Distribution Width 13.3 % (11.5-14.5); Red Blood Cell (RBC) Count 3.82 mill/uL (4.20-5.40); White Blood Cell (WBC) Count 4.2 thou/uL (4.8-10.8)
[2021-09-21 07:26] LABS: Band 6 % (5-11); Lymphocytes 28 % (21-51); MDiff Complete? YES; Monocytes 18 % (0-10); Neutrophil 47 % (42-75); RBC Morphology Normal; Reactive Lymphocytes 1 % (0-10)
[2021-09-21] MEDS ORDERED: Magnesium 2 GM/50 ML(in water) 2 GM in Premix Bag 1 BAG IVPB SCH (08:00)
[2021-09-21] MEDS ORDERED: Lorazepam 1 MG TAB ONE (08:13)
[2021-09-21] MEDS: Lorazepam 1 MG TAB PO SCH ×3 (08:16→16:55)
[2021-09-21] MEDS: Thiamine HCl 200 MG/2 ML VIAL SLOW IVP SCH (08:18)
[2021-09-21] MEDS ORDERED: Folic Acid 1 MG TAB ONE (09:14)
[2021-09-21] MEDS ORDERED: Magnesium 2 GM/50 ML BAG (IN WATER) ONE (09:14)
[2021-09-21] MEDS: Folic Acid 1 MG TAB PO SCH (09:18)
[2021-09-21] MEDS: Multivit, Therapeutic 1 TAB PO SCH (09:30)
[2021-09-21 12:23] LABS: Chloride 89 mmol/L (98-107); Potassium 4.8 mmol/L (3.5-5.1); Sodium 123 mmol/L (136-145)
[2021-09-21 12:24] LABS: Calcium 9.2 mg/dL (7.8-10.44); Glucose 104 mg/dL (83-110)
[2021-09-21 12:25] LABS: Anion Gap 22 mmol/L (10-20); Carbon Dioxide 17 mmol/L (23-31)
[2021-09-21 12:28] LABS: BUN (Urea Nitrogen) 9 mg/dL (9.8-20.1); Calc. Creatinine Clearance 51 mL/min (70-130); Estimated GFR 94
[2021-09-21] MEDS ORDERED: Dextrose 5% in Water 1,000 ML IV SCH (13:30)
[2021-09-21 13:34] LABS: SARS-CoV-2 NAA Rapid Test Not Detected (NotDetected)
[2021-09-21] MEDS: Lorazepam 1 MG TAB PO PRN ×3 (14:04→21:55)
[2021-09-21 15:12] LABS: Anion Gap 16 mmol/L (10-20); BUN (Urea Nitrogen) 12 mg/dL (9.8-20.1); Calc. Creatinine Clearance 44 mL/min (70-130); Calcium 9.8 mg/dL (7.8-10.44); Carbon Dioxide 25 mmol/L (23-31); Chloride 84 mmol/L (98-107); Estimated GFR 86; Glucose 130 mg/dL (83-110); Sodium 121 mmol/L (136-145)
[2021-09-21] MEDS ORDERED: Haloperidol Lactate 5 MG/ML VIAL SLOW IVP SCH (15:30)
[2021-09-21] MEDS ORDERED: Dexmedetomidine In 0.9 % NaCl 100 ML IVPB SCH (15:30)
[2021-09-21 20:10] LABS: Anion Gap 14 mmol/L (10-20); BUN (Urea Nitrogen) 12 mg/dL (9.8-20.1); Calc. Creatinine Clearance 49 mL/min (70-130); Calcium 9.3 mg/dL (7.8-10.44); Carbon Dioxide 25 mmol/L (23-31); Chloride 89 mmol/L (98-107); Estimated GFR 93; Glucose 137 mg/dL (83-110); Potassium 3.9 mmol/L (3.5-5.1); Sodium 124 mmol/L (136-145)
[2021-09-22 03:51] LABS: Hemoglobin 11.9 g/dL (12.0-16.0); Mean Corpuscular HGB CONC 34.8 g/dL (32.0-36.0); Mean Corpuscular Hemoglobin 33.7 pg (27.0-31.0); Mean Platelet Volume 8.1 fL (7.4-10.4); Platelet Count 173 thou/uL (130-400); RBC Distribution Width 13.2 % (11.5-14.5); Red Blood Cell (RBC) Count 3.54 mill/uL (4.20-5.40); White Blood Cell (WBC) Count 3.4 thou/uL (4.8-10.8)
[2021-09-22 03:59] LABS: Anion Gap 14 mmol/L (10-20); BUN (Urea Nitrogen) 9 mg/dL (9.8-20.1); Calc. Creatinine Clearance 57 mL/min (70-130); Calcium 8.8 mg/dL (7.8-10.44); Carbon Dioxide 23 mmol/L (23-31); Chloride 90 mmol/L (98-107); Estimated GFR 96; Glucose 127 mg/dL (83-110); Potassium 3.8 mmol/L (3.5-5.1); Sodium 123 mmol/L (136-145)
[2021-09-22 04:01] LABS: Albumin 3.8 g/dL (3.4-4.8); Phosphorus 3.2 mg/dL (2.3-4.7)
[2021-09-22 04:39] LABS: Band 2 % (5-11); Lymphocytes 41 % (21-51); MDiff Complete? YES; Monocytes 21 % (0-10); Neutrophil 22 % (42-75); Reactive Lymphocytes 14 % (0-10)
[2021-09-22] MEDS: Thiamine HCl 200 MG/2 ML VIAL SLOW IVP SCH (05:45)
[2021-09-22] MEDS ORDERED: Magnesium 2 GM/50 ML BAG (IN WATER) ONE (07:48)
[2021-09-22] MEDS ORDERED: Magnesium 2 GM/50 ML(in water) 2 GM in Premix Bag 1 BAG IVPB SCH (08:00)
[2021-09-22] MEDS: Folic Acid 1 MG TAB PO SCH (09:37)
[2021-09-22] MEDS: Multivit, Therapeutic 1 TAB PO SCH (09:37)
[2021-09-22 12:40] LABS: Anion Gap 14 mmol/L (10-20); BUN (Urea Nitrogen) 7 mg/dL (9.8-20.1); Calc. Creatinine Clearance 49 mL/min (70-130); Calcium 9.4 mg/dL (7.8-10.44); Carbon Dioxide 27 mmol/L (23-31); Chloride 90 mmol/L (98-107); Estimated GFR 93; Glucose 112 mg/dL (83-110); Potassium 3.8 mmol/L (3.5-5.1); Sodium 127 mmol/L (136-145)
[2021-09-22] MEDS: Lorazepam 1 MG TAB PO PRN ×3 (12:47→23:13)
[2021-09-22] MEDS ORDERED: Nicotine 21 MG PATCH TD SCH (18:45)
[2021-09-22] MEDS: Acetaminophen 325 MG TAB PO PRN (23:08)
[2021-09-23] MEDS: Lorazepam 0.5 MG TAB PO SCH ×4 (05:20→23:48)
[2021-09-23] MEDS: Thiamine HCl 200 MG/2 ML VIAL SLOW IVP SCH (05:21)
[2021-09-23] MEDS ORDERED: Lorazepam 1 MG TAB PO PRN (05:39)
[2021-09-23 06:09] LABS: Anion Gap 14 mmol/L (10-20); BUN (Urea Nitrogen) 9 mg/dL (9.8-20.1); Calc. Creatinine Clearance 51 mL/min (70-130); Calcium 10.3 mg/dL (7.8-10.44); Carbon Dioxide 28 mmol/L (23-31); Chloride 88 mmol/L (98-107); Estimated GFR 94; Glucose 109 mg/dL (83-110); Potassium 3.9 mmol/L (3.5-5.1); Sodium 126 mmol/L (136-145)
[2021-09-23] MEDS: Nicotine 21 MG PATCH TD SCH (08:34)
[2021-09-23] MEDS: Folic Acid 1 MG TAB PO SCH (08:34)
[2021-09-23] MEDS: Aspirin 81 mg Enteric Coated Tablet PO SCH (08:34)
[2021-09-23] MEDS: Multivit, Therapeutic 1 TAB PO SCH (08:34)
[2021-09-23] MEDS: Lisinopril 5 MG TAB PO SCH (08:34)
[2021-09-23] MEDS: traZODone HCl 50 MG TAB PO SCH (19:35)
[2021-09-24 04:23] VITALS: BMI 16.2
[2021-09-24] MEDS: Thiamine 100 MG TAB PO SCH (05:21)
[2021-09-24] MEDS ORDERED: Lorazepam 0.5 MG TAB PO PRN (05:39)
[2021-09-24 06:48] LABS: Anion Gap 16 mmol/L (10-20); BUN (Urea Nitrogen) 15 mg/dL (9.8-20.1); Calc. Creatinine Clearance 43 mL/min (70-130); Calcium 9.8 mg/dL (7.8-10.44); Carbon Dioxide 26 mmol/L (23-31); Chloride 90 mmol/L (98-107); Estimated GFR 85; Glucose 119 mg/dL (83-110); Potassium 4.2 mmol/L (3.5-5.1); Sodium 128 mmol/L (136-145); Uric Acid 4.5 mg/dL (2.6-6.0)
[2021-09-24] MEDS: Lisinopril 5 MG TAB PO SCH (09:36)
[2021-09-24] MEDS: Nicotine 21 MG PATCH TD SCH (09:36)
[2021-09-24] MEDS: Multivit, Therapeutic 1 TAB PO SCH (09:36)
[2021-09-24] MEDS: Aspirin 81 mg Enteric Coated Tablet PO SCH (09:36)
[2021-09-24] MEDS: Folic Acid 1 MG TAB PO SCH (09:36)
[2021-09-24] MEDS: Acetaminophen 325 MG TAB PO PRN ×2 (09:57→23:56)
[2021-09-24] MEDS: guaiFENesin ER 600 MG TAB PO SCH (20:04)
[2021-09-24] MEDS ORDERED: Benzonatate 100 MG CAP PO SCH (21:00)
[2021-09-24] MEDS: traZODone HCl 50 MG TAB PO SCH (21:34)
[2021-09-25] MEDS: Thiamine 100 MG TAB PO SCH (05:36)
[2021-09-25 06:33] LABS: Anion Gap 13 mmol/L (10-20); BUN (Urea Nitrogen) 17 mg/dL (9.8-20.1); Calc. Creatinine Clearance 46 mL/min (70-130); Calcium 10.1 mg/dL (7.8-10.44); Carbon Dioxide 27 mmol/L (23-31); Chloride 92 mmol/L (98-107); Estimated GFR 92; Glucose 119 mg/dL (83-110); Potassium 4.3 mmol/L (3.5-5.1); Sodium 128 mmol/L (136-145)
[2021-09-25] MEDS: Aspirin 81 mg Enteric Coated Tablet PO SCH (08:03)
[2021-09-25] MEDS: Folic Acid 1 MG TAB PO SCH (08:03)
[2021-09-25] MEDS: Lisinopril 5 MG TAB PO SCH (08:03)
[2021-09-25] MEDS: guaiFENesin ER 600 MG TAB PO SCH (08:03)
[2021-09-25] MEDS: Multivit, Therapeutic 1 TAB PO SCH (08:03)
[2021-09-25] MEDS: Nicotine 21 MG PATCH TD SCH (08:04)
[2021-09-25] MEDS ORDERED: Thiamine 100 MG TAB PO SCH (09:00)
[2021-09-25] MEDS ORDERED: Sodium Chloride 1 GM TAB PO SCH (09:00)
[2021-09-25 12:26] VITALS: BP 110/65; TEMP 97.3
== END 2021-09-25 13:41 | disposition home health service (06) | DRG 641 ==
LOC: ERS 20:07 → ERHOLD 09-21 01:53 → IMCU/EMU 09-21 03:59 → T4-A 09-22 17:18 → ERHOLD 09-22 21:35 → T4-A 09-22 21:36
PROVIDERS: ADMIT Student in an Organized Health Care Education/Training Program; ATTEND Internal Medicine
PROC: HZ2ZZZZ Detoxification Services for Substance Abuse Treatment (ICD-10-PCS; principal; 2021-09-21)
DX: E87.1 Hypo-osmolality and hyponatremia (principal); F10.139 Alcohol abuse with withdrawal, unspecified; F10.129 Alcohol abuse with intoxication, unspecified; E86.0 Dehydration; E86.1 Hypovolemia; I10 Essential (primary) hypertension; J44.9 Chronic obstructive pulmonary disease, unspecified; Z20.822 Contact with and (suspected) exposure to COVID-19; F17.210 Nicotine dependence, cigarettes, uncomplicated; R74.01 Elevation of levels of liver transaminase levels; Y90.6 Blood alcohol level of 120-199 mg/100 ml; Z71.6 Tobacco abuse counseling; Z88.1 Allergy status to other antibiotic agents; Z88.8 Allergy status to other drugs, medicaments and biological substances; Z79.82 Long term (current) use of aspirin; Z79.899 Other long term (current) drug therapy
CPT/HCPCS: 36415; 71045; 80048; 80053; 80307; 81003; 81015; 82040; 82248; 82533; 83690; 83735; 83930; 83935; 84100; 84443; 84550; 85025; 96360; J1630; J2405; J3411; J3475; J3490; J7070; Q0162; U0002

== ENCOUNTER 2021-09-25 20:36 | Emergency (ER) | payer MEDICARE | END 2021-09-25 21:34 | disposition home or self-care (01) | LOC: ERS 20:36 | DX: R11.2 Nausea with vomiting, unspecified (principal); I10 Essential (primary) hypertension; J44.9 Chronic obstructive pulmonary disease, unspecified; F17.210 Nicotine dependence, cigarettes, uncomplicated | CPT/HCPCS: 99283 ==

== ENCOUNTER 2021-09-26 06:42 | Emergency (ER) | payer MEDICARE ==
[2021-09-26] MEDS ORDERED: Ondansetron PF 4 MG/2 ML Vial ONE (07:32)
[2021-09-26] MEDS ORDERED: Famotidine/PF 20 mg/2ml Vial ONE (07:32)
[2021-09-26 07:59] LABS: Hemoglobin 12.4 g/dL (12.0-16.0); Mean Corpuscular Hemoglobin 33.3 pg (27.0-31.0); Mean Corpuscular Volume 97.7 fL (78.0-98.0); Mean Platelet Volume 7.6 fL (7.4-10.4); Platelet Count 203 thou/uL (130-400); RBC Distribution Width 13.5 % (11.5-14.5); Red Blood Cell (RBC) Count 3.72 mill/uL (4.20-5.40)
[2021-09-26 08:12] LABS: Bilirubin Negative (Negative); Blood, Urine Negative (Negative); Clarity Clear (Clear); Glucose, Urine (Dipstick) Normal (Negative); Ketone, Urine Negative (Negative); Leukocyte Negative Leu/uL (Negative); Nitrite Negative (Negative); Protein, Urine (Dipstick) Negative (Neg-Trace); Specific Gravity, Urine 1.005 (1.002-1.036); Urobilinogen Normal mg/dL (Less than 2)
[2021-09-26 08:26] LABS: ALT (SGPT) 37 U/L (8-55); AST (SGOT) 33 U/L (5-34); Albumin 4.6 g/dL (3.4-4.8); Alcohol 34 mg/dL (Less than 10); Alkaline Phosphatase 83 U/L (40-110); Anion Gap 16 mmol/L (10-20); BUN (Urea Nitrogen) 11 mg/dL (9.8-20.1); Bilirubin, Total 0.4 mg/dL (0.2-1.2); CK (CPK) 58 U/L (29-168); Calc. Creatinine Clearance 0 mL/min (70-130); Calcium 10.1 mg/dL (7.8-10.44); Carbon Dioxide 24 mmol/L (23-31); Chloride 92 mmol/L (98-107); Estimated GFR 94; Globulin 3.2 g/dL (2.4-3.5); Glucose 79 mg/dL (83-110); Lipase 63 U/L (8-78); Potassium 4.1 mmol/L (3.5-5.1); Protein, Total 7.8 g/dL (5.8-8.1); Sodium 128 mmol/L (136-145)
[2021-09-26 08:27] LABS: Band 4 % (5-11); Lymphocytes 28 % (21-51); MDiff Complete? YES; Monocytes 12 % (0-10); Neutrophil 50 % (42-75); Platelet Morphology Comment Appears Adequate; RBC Morphology Normal; Reactive Lymphocytes 6 % (0-10)
== END 2021-09-26 09:20 | disposition home or self-care (01) ==
LOC: ERS 06:42
DX: F10.10 Alcohol abuse, uncomplicated (principal); E87.1 Hypo-osmolality and hyponatremia; R11.2 Nausea with vomiting, unspecified; I10 Essential (primary) hypertension; F17.210 Nicotine dependence, cigarettes, uncomplicated; Z79.899 Other long term (current) drug therapy
CPT/HCPCS: 80053; 80307; 81003; 82550; 83690; 83735; 85025; 93005; 96361; 96374; 96375; J2405; S0028

== ENCOUNTER 2021-10-25 00:03 | Emergency (ER) | payer MEDICARE | END 2021-10-25 01:00 | disposition left against medical advice (07) | LOC: ERS 00:03 | DX: Z53.21 Procedure and treatment not carried out due to patient leaving prior to being seen by health care provider (principal) ==

== ENCOUNTER 2021-10-25 00:05 | Emergency (ER) | payer MEDICARE, OTHER | END 2021-10-25 00:20 | disposition left against medical advice (07) | LOC: ERS 00:05 | DX: Z53.21 Procedure and treatment not carried out due to patient leaving prior to being seen by health care provider (principal) ==

== ENCOUNTER 2022-02-24 23:06 | Inpatient (IN) | payer MEDICARE, OTHER ==
[2022-02-24] MEDS ORDERED: Ondansetron PF 4 MG/2 ML Vial ONE (23:43)
[2022-02-25 00:15] LABS: #Lymphocytes 0.5 thou/uL (1.20-3.40); #Monocytes 0.8 thou/uL (0.11-0.59); #Neutrophils 5.2 thou/uL (1.40-6.50); %Basophils 0.2 % (0.0-1.0); %Eosinophils 0.2 % (0.0-10.0); %Lymphocytes 7.4 % (21.0-51.0); %Monocytes 11.6 % (0.0-10.0); %Neutrophils 80.6 % (42.0-75.0); Hemoglobin 13.2 g/dL (12.0-16.0); Mean Corpuscular Volume 97.2 fl (78.0-98.0); Platelet Count 235 10x3/uL (130-400); RBC Distribution Width 13.1 % (11.5-14.5); Red Blood Cell (RBC) Count 3.78 mill/uL (4.20-5.40); White Blood Cell (WBC) Count 6.5 10x3/uL (4.8-10.8)
[2022-02-25] MEDS ORDERED: Promethazine HCl 25 MG in Sodium Chloride 0.9% 50 ML IVPB SCH (00:15)
[2022-02-25 00:35] LABS: ALT (SGPT) 64 U/L (8-55); AST (SGOT) 103 U/L (5-34); Albumin 4.7 g/dL (3.4-4.8); Alkaline Phosphatase 79 U/L (40-110); Anion Gap 21 mmol/L (10-20); BUN (Urea Nitrogen) 8 mg/dL (9.8-20.1); Bilirubin, Total 0.7 mg/dL (0.2-1.2); Calc. Creatinine Clearance 0 mL/min (70-130); Calcium 9.5 mg/dL (7.8-10.44); Carbon Dioxide 24 mmol/L (23-31); Chloride 76 mmol/L (98-107); Estimated GFR 96; Globulin 2.9 g/dL (2.4-3.5); Glucose 104 mg/dL (83-110); Lipase 31 U/L (8-78); Potassium 4.6 mmol/L (3.5-5.1); Protein, Total 7.6 g/dL (5.8-8.1)
[2022-02-25 00:49] LABS: Sodium 116 mmol/L (136-145)
[2022-02-25 01:25] LABS: Acetaminophen Less than 10.0 mcg/mL (10.0-30.0); Alcohol Less than 10 mg/dL (Less than 10); Salicylate Less than 8.0 mg/dL (15.0-30.0)
[2022-02-25 02:03] LABS: Bacteria/HPF None Seen HPF (None Seen); Bilirubin Negative (Negative); Blood, Urine Trace (Negative); Clarity Clear (Clear); Glucose, Urine (Dipstick) Normal (Negative); Ketone, Urine 20 mg/dL (Negative); Leukocyte Negative Leu/uL (Negative); Nitrite Negative (Negative); Protein, Urine (Dipstick) 30 mg/dL (Neg-Trace); RBC/HPF 0-3 HPF (0-3); Specific Gravity, Urine 1.007 (1.002-1.036); Squamous Epithelial 0-3 HPF (0-3); Urobilinogen Normal mg/dL (Less than 2); WBC/HPF 0-3 HPF (0-3)
[2022-02-25] MEDS ORDERED: Lorazepam 2 MG/ML VIAL IM PRN (02:19)
[2022-02-25] MEDS ORDERED: Lorazepam 1 MG TAB PO PRN (02:19)
[2022-02-25] MEDS ORDERED: Ondansetron ODT 4 MG TAB PO PRN (02:19)
[2022-02-25] MEDS ORDERED: Acetaminophen 325 MG TAB PO PRN (02:20)
[2022-02-25] MEDS ORDERED: Senokot S 8.6-50 MG TAB PO PRN (02:20)
[2022-02-25] MEDS ORDERED: Electrolyte Replacement Protocol 1 EACH FS SCH (02:30)
[2022-02-25 02:44] LABS: SARS-CoV-2 NAA Rapid Test Not Detected (NotDetected)
[2022-02-25 03:29] LABS: Lactic Acid 0.8 mmol/L (0.5-2.2)
[2022-02-25 03:32] LABS: Magnesium 1.9 mg/dL (1.6-2.6); Phosphorus 3.6 mg/dL (2.3-4.7)
[2022-02-25] MEDS: Lorazepam 1 MG TAB PO SCH ×4 (05:00→20:15)
[2022-02-25] MEDS: Thiamine HCl 200 MG/2 ML VIAL SLOW IVP SCH (06:12)
[2022-02-25 08:08] VITALS: BMI 16.1
[2022-02-25] MEDS ORDERED: FLU VACC QS2022-23(65YR UP)/PF 240 MCG/0.7 ML SYRINGE IM ONE (08:45)
[2022-02-25 08:49] LABS: Anion Gap 13 mmol/L (10-20); BUN (Urea Nitrogen) 8 mg/dL (9.8-20.1); Calc. Creatinine Clearance 47 mL/min (70-130); Calcium 8.9 mg/dL (7.8-10.44); Carbon Dioxide 24 mmol/L (23-31); Chloride 89 mmol/L (98-107); Estimated GFR 92; Glucose 206 mg/dL (83-110); Potassium 4.1 mmol/L (3.5-5.1); Sodium 122 mmol/L (136-145)
[2022-02-25] MEDS ORDERED: Magnesium 2 GM/50 ML(in water) 2 GM in Premix Bag 1 BAG IVPB SCH (09:00)
[2022-02-25] MEDS: Multivit, Therapeutic 1 TAB PO SCH (09:43)
[2022-02-25] MEDS: Folic Acid 1 MG TAB PO SCH (09:43)
[2022-02-25] MEDS: Sodium Chloride 1 GM TAB PO SCH ×3 (09:43→20:15)
[2022-02-25] MEDS: Lisinopril 5 MG TAB PO SCH (09:44)
[2022-02-25] MEDS: Famotidine 20 MG TAB PO SCH ×2 (09:44→20:14)
[2022-02-25 13:01] LABS: Anion Gap 12 mmol/L (10-20); BUN (Urea Nitrogen) 8 mg/dL (9.8-20.1); Calc. Creatinine Clearance 51 mL/min (70-130); Calcium 9.1 mg/dL (7.8-10.44); Carbon Dioxide 24 mmol/L (23-31); Chloride 92 mmol/L (98-107); Estimated GFR 94; Glucose 148 mg/dL (83-110); Potassium 4.1 mmol/L (3.5-5.1); Sodium 124 mmol/L (136-145)
[2022-02-25 18:50] LABS: Anion Gap 11 mmol/L (10-20); BUN (Urea Nitrogen) 11 mg/dL (9.8-20.1); Calc. Creatinine Clearance 47 mL/min (70-130); Calcium 9.2 mg/dL (7.8-10.44); Carbon Dioxide 25 mmol/L (23-31); Chloride 93 mmol/L (98-107); Estimated GFR 92; Glucose 125 mg/dL (83-110); Potassium 4.3 mmol/L (3.5-5.1); Sodium 125 mmol/L (136-145)
[2022-02-25] MEDS ORDERED: Nicotine 14 MG PATCH TD SCH (20:00)
[2022-02-26] MEDS ORDERED: Lorazepam 1 MG TAB PO PRN (02:19)
[2022-02-26] MEDS: Thiamine HCl 200 MG/2 ML VIAL SLOW IVP SCH (02:19)
[2022-02-26] MEDS: Lorazepam 1 MG TAB PO SCH ×3 (02:21→15:23)
[2022-02-26] MEDS ORDERED: Magnesium 2 GM/50 ML(in water) 2 GM in Premix Bag 1 BAG IVPB SCH (08:00)
[2022-02-26] MEDS: Lisinopril 5 MG TAB PO SCH (08:24)
[2022-02-26] MEDS: Folic Acid 1 MG TAB PO SCH (08:24)
[2022-02-26] MEDS: Sodium Chloride 1 GM TAB PO SCH ×2 (08:24→15:23)
[2022-02-26] MEDS: Multivit, Therapeutic 1 TAB PO SCH (08:24)
[2022-02-26 17:22] VITALS: TEMP 97.9
[2022-02-26] MEDS ORDERED: Acetaminophen 325 MG TAB PO SCH (18:30)
[2022-02-26] MEDS ORDERED: Famotidine 20 MG TAB PO SCH (21:00)
[2022-02-26] MEDS ORDERED: traZODone HCl 50 MG TAB PO SCH (21:00)
[2022-02-27] MEDS ORDERED: Lorazepam 1 MG TAB PO PRN (02:19)
[2022-02-27] MEDS ORDERED: Lorazepam 0.5 MG TAB PO SCH (02:30)
[2022-02-28] MEDS ORDERED: Lorazepam 0.5 MG TAB PO PRN (02:19)
[2022-02-28] MEDS ORDERED: Thiamine 100 MG TAB PO SCH (09:00)
== END 2022-02-26 18:30 | disposition left against medical advice (07) | DRG 641 ==
LOC: ERS 23:06 → IMCU/EMU 02-25 01:20
PROVIDERS: ADMIT Internal Medicine; ATTEND Internal Medicine
DX: E87.1 Hypo-osmolality and hyponatremia (principal); E44.0 Moderate protein-calorie malnutrition; Z68.1 Body mass index [BMI] 19.9 or less, adult; Z20.822 Contact with and (suspected) exposure to COVID-19; I10 Essential (primary) hypertension; F32.A Depression, unspecified; F17.210 Nicotine dependence, cigarettes, uncomplicated; F10.10 Alcohol abuse, uncomplicated; R79.89 Other specified abnormal findings of blood chemistry; E87.20 Acidosis, unspecified; E83.42 Hypomagnesemia; E86.0 Dehydration; Z28.21 Immunization not carried out because of patient refusal; Z88.1 Allergy status to other antibiotic agents; Z79.899 Other long term (current) drug therapy; Z79.82 Long term (current) use of aspirin; Z90.49 Acquired absence of other specified parts of digestive tract
CPT/HCPCS: 36415; 80048; 80053; 80307; 81003; 81015; 83605; 83690; 83735; 83930; 84100; 84484; 85025; 87040; 87086; 96374; 96375; J1650; J2405; J2550; J3411; J3475; Q0162

== ENCOUNTER 2022-02-27 21:43 | Emergency (ER) | payer OTHER | END 2022-02-27 22:18 | disposition left against medical advice (07) | LOC: ERS 21:43 | DX: Z53.21 Procedure and treatment not carried out due to patient leaving prior to being seen by health care provider (principal) ==

== ENCOUNTER 2022-03-10 18:57 | Emergency (ER) | payer OTHER | END 2022-03-10 19:30 | disposition left against medical advice (07) | LOC: ERS 18:57 | DX: Z53.29 Procedure and treatment not carried out because of patient's decision for other reasons (principal) | CPT/HCPCS: 71045 ==

== ENCOUNTER 2022-04-03 18:45 | Emergency (ER) | payer OTHER | END 2022-04-03 20:25 | disposition left against medical advice (07) | LOC: ERS 18:45 | DX: Z53.29 Procedure and treatment not carried out because of patient's decision for other reasons (principal) ==

== ENCOUNTER 2022-04-17 20:42 | Emergency (ER) | payer OTHER ==
[2022-04-17] MEDS ORDERED: Ipratropium/Albuterol 3 ML NEB ONE (20:58)
== END 2022-04-17 21:27 | disposition home or self-care (01) ==
LOC: ERS 20:42
DX: J44.9 Chronic obstructive pulmonary disease, unspecified (principal)
CPT/HCPCS: 71045; 94640; J7620

== ENCOUNTER 2022-04-19 05:28 | Emergency (ER) | payer OTHER ==
[2022-04-19] MEDS ORDERED: Ipratropium/Albuterol 3 ML NEB ONE (05:45)
[2022-04-19] MEDS ORDERED: predniSONE 20 MG TAB ONE (05:45)
== END 2022-04-19 06:20 | disposition home or self-care (01) ==
LOC: ERS 05:28
DX: J44.1 Chronic obstructive pulmonary disease with (acute) exacerbation (principal)
CPT/HCPCS: 71045; J7512; J7611; J7620

== ENCOUNTER 2022-04-21 16:42 | Inpatient (IN) | payer OTHER ==
[2022-04-21] MEDS ORDERED: Ipratropium/Albuterol 3 ML NEB ONE ×2 (16:55→17:43)
[2022-04-21] MEDS ORDERED: Magnesium 2 GM/50 ML BAG (IN WATER) ONE (17:46)
[2022-04-21] MEDS ORDERED: Dexamethasone 10 MG/ML VIAL ONE (17:46)
[2022-04-21 17:51] LABS: Actual Bicarbonate (HCO3a) 23.1 mEq/L (22-28); Analyzer IN Cardio ER; Base Excess (BEa) 0.4 mEq/L (-2.0 to +3.0); CO2 Tension 31.5 mmHg (35.0-45.0); Calcium, Ionized (arterial) 1.06 mmol/L (1.12-1.30); Carboxyhemoglobin (COHb) 5.4 gm% (0.0-3.0); Hemoglobin (Hb) 12.6 g/dL (12.0-16.0); O2 Tension (PaO2), arterial 140.5 mmHg (> 70.0); pH, Arterial 7.48 (7.35-7.45)
[2022-04-21 17:55] LABS: Puncture Site RRA
[2022-04-21 17:55] LABS: Hemoglobin 11.9 g/dL (12.0-16.0); Mean Corpuscular HGB CONC 34.6 g/dL (32.0-36.0); Mean Corpuscular Hemoglobin 33.2 pg (27.0-31.0); Mean Corpuscular Volume 96.2 fl (78.0-98.0); Mean Platelet Volume 7.6 fL (7.4-10.4); Platelet Count 211 10x3/uL (130-400); RBC Distribution Width 13.6 % (11.5-14.5); Red Blood Cell (RBC) Count 3.59 mill/uL (4.20-5.40)
[2022-04-21 17:56] LABS: ALV-art Gradient 19.765 mmHg (0-20)
[2022-04-21 18:11] LABS: ALT (SGPT) 55 U/L (8-55); AST (SGOT) 63 U/L (5-34); Albumin 3.9 g/dL (3.4-4.8); Alkaline Phosphatase 90 U/L (40-110); Anion Gap 17 mmol/L (10-20); BUN (Urea Nitrogen) 4 mg/dL (9.8-20.1); Bilirubin, Total 0.5 mg/dL (0.2-1.2); Calc. Creatinine Clearance 0 mL/min (70-130); Calcium 8.9 mg/dL (7.8-10.44); Carbon Dioxide 22 mmol/L (23-31); Chloride 79 mmol/L (98-107); Estimated GFR 98; Globulin 2.7 g/dL (2.4-3.5); Glucose 93 mg/dL (83-110); Magnesium 1.5 mg/dL (1.6-2.6); Potassium 3.1 mmol/L (3.5-5.1); Protein, Total 6.6 g/dL (5.8-8.1)
[2022-04-21 18:14] LABS: Band 1 % (5-11); Lymphocytes 36 % (21-51); MDiff Complete? YES; Metamyelocyte 1 % (0-0); Monocytes 15 % (0-10); Neutrophil 47 % (42-75); Platelet Morphology Comment Appears Adequate; Polychromasia SLIGHT = 2-3 cells (100X) (0-2/hpf)
[2022-04-21 18:18] LABS: Sodium 115 mmol/L (136-145)
[2022-04-21 18:53] LABS: Acetaminophen Less than 10.0 mcg/mL (10.0-30.0); Alcohol 125 mg/dL (Less than 10); Salicylate Less than 8.0 mg/dL (15.0-30.0)
[2022-04-21] MEDS ORDERED: Electrolyte Replacement Protocol 1 EACH FS SCH (19:45)
[2022-04-21] MEDS ORDERED: Acetaminophen 325 MG TAB PO PRN (19:50)
[2022-04-21] MEDS ORDERED: Ipratropium/Albuterol 3 ML NEB NEB PRN (19:50)
[2022-04-21] MEDS ORDERED: Azithromycin 500 MG in Sodium Chloride 0.9% 250 ML 250 ML IVPB SCH (20:00)
[2022-04-21] MEDS ORDERED: Sodium Chloride 256 MEQ in Sterile Water Injection 936 ML IV SCH (20:00)
[2022-04-21] MEDS ORDERED: Magnesium Sulfate In Water 4 GM in Premix Bag 1 BAG IVPB SCH (20:00)
[2022-04-21] MEDS ORDERED: Potassium Chloride 20 MEQ TAB PO SCH (20:00)
[2022-04-21 21:06] LABS: Anion Gap 16 mmol/L (10-20); BUN (Urea Nitrogen) 5 mg/dL (9.8-20.1); Calc. Creatinine Clearance 0 mL/min (70-130); Calcium 9.3 mg/dL (7.8-10.44); Carbon Dioxide 24 mmol/L (23-31); Chloride 79 mmol/L (98-107); Estimated GFR 95; Glucose 112 mg/dL (83-110); Potassium 3.4 mmol/L (3.5-5.1)
[2022-04-21 21:09] LABS: Sodium 116 mmol/L (136-145)
[2022-04-21 21:24] LABS: SARS-CoV-2 NAA Rapid Test DETECTED (NotDetected)
[2022-04-21 21:32] VITALS: BP 101/53; BMI 15.9
[2022-04-21] MEDS ORDERED: Albuterol 200 PUFF (6.7GM INHALER) INH PRN (22:02)
[2022-04-22] MEDS: Potassium Chloride 20 MEQ TAB PO SCH (00:23)
[2022-04-22] MEDS ORDERED: Albuterol 200 PUFF (6.7GM INHALER) INH SCH (01:00)
[2022-04-22] MEDS ORDERED: Ipratropium/Albuterol 3 ML NEB NEB SCH (01:00)
[2022-04-22 01:04] LABS: #Lymphocytes 0.4 thou/uL (1.20-3.40); #Monocytes 0.1 thou/uL (0.11-0.59); #Neutrophils 2.4 thou/uL (1.40-6.50); %Eosinophils 0.7 % (0.0-10.0); %Lymphocytes 12.2 % (21.0-51.0); %Monocytes 2.5 % (0.0-10.0); %Neutrophils 84.6 % (42.0-75.0); Hemoglobin 12.8 g/dL (12.0-16.0); Mean Corpuscular HGB CONC 34.3 g/dL (32.0-36.0); Mean Corpuscular Hemoglobin 33.3 pg (27.0-31.0); Mean Platelet Volume 7.5 fL (7.4-10.4); Platelet Count 240 10x3/uL (130-400); RBC Distribution Width 13.7 % (11.5-14.5); Red Blood Cell (RBC) Count 3.86 mill/uL (4.20-5.40); White Blood Cell (WBC) Count 2.9 10x3/uL (4.8-10.8)
[2022-04-22 01:25] LABS: Anion Gap 18 mmol/L (10-20); BUN (Urea Nitrogen) 10 mg/dL (9.8-20.1); Calc. Creatinine Clearance 43 mL/min (70-130); Calcium 9.3 mg/dL (7.8-10.44); Carbon Dioxide 22 mmol/L (23-31); Chloride 83 mmol/L (98-107); Estimated GFR 86; Glucose 187 mg/dL (83-110); Magnesium 2.1 mg/dL (1.6-2.6); Potassium 3.7 mmol/L (3.5-5.1)
[2022-04-22 01:28] LABS: Sodium 119 mmol/L (136-145)
[2022-04-22 06:03] LABS: Anion Gap 17 mmol/L (10-20); BUN (Urea Nitrogen) 12 mg/dL (9.8-20.1); Calc. Creatinine Clearance 45 mL/min (70-130); Calcium 8.8 mg/dL (7.8-10.44); Carbon Dioxide 21 mmol/L (23-31); Chloride 87 mmol/L (98-107); Estimated GFR 90; Glucose 194 mg/dL (83-110); Potassium 4.9 mmol/L (3.5-5.1); Sodium 120 mmol/L (136-145)
[2022-04-22 07:40] VITALS: TEMP 97.1
[2022-04-22] MEDS ORDERED: methylPREDNISolone Sod Succ 40 MG VIAL IVP SCH (09:00)
== END 2022-04-22 11:49 | disposition left against medical advice (07) | DRG 640 ==
LOC: ERS 16:42 → IMCU/EMU 18:39
PROVIDERS: ADMIT Internal Medicine; ATTEND Internal Medicine
DX: E87.1 Hypo-osmolality and hyponatremia (principal); G92.8 Other toxic encephalopathy; J44.1 Chronic obstructive pulmonary disease with (acute) exacerbation; E44.0 Moderate protein-calorie malnutrition; Z68.1 Body mass index [BMI] 19.9 or less, adult; E87.6 Hypokalemia; E83.42 Hypomagnesemia; F10.229 Alcohol dependence with intoxication, unspecified; Z53.29 Procedure and treatment not carried out because of patient's decision for other reasons; D64.9 Anemia, unspecified; I10 Essential (primary) hypertension; F32.A Depression, unspecified; Z88.1 Allergy status to other antibiotic agents; Z90.49 Acquired absence of other specified parts of digestive tract
CPT/HCPCS: 36415; 36600; 71045; 80053; 80307; 82805; 83690; 83735; 83880; 84484; 85025; 87040; 93005; 94644; 96365; 96366; 96368; 96375; A4217; J1100; J1650; J1956; J2920; J3411; J3475; J7512; J7611; J7620

== ENCOUNTER 2022-04-22 19:02 | Emergency (ER) | payer OTHER | END 2022-04-22 19:22 | disposition left against medical advice (07) | LOC: ERS 19:02 | DX: Z53.21 Procedure and treatment not carried out due to patient leaving prior to being seen by health care provider (principal) ==

== ENCOUNTER 2022-04-22 20:18 | Emergency (ER) | payer OTHER | END 2022-04-22 20:48 | disposition left against medical advice (07) | LOC: ERS 20:18 | DX: Z53.21 Procedure and treatment not carried out due to patient leaving prior to being seen by health care provider (principal) ==

== ENCOUNTER 2022-04-22 23:33 | Emergency (ER) | payer OTHER | END 2022-04-23 01:02 | disposition left against medical advice (07) | LOC: ERS 23:33 | DX: Z53.21 Procedure and treatment not carried out due to patient leaving prior to being seen by health care provider (principal) ==

== ENCOUNTER 2022-04-23 19:49 | Emergency (ER) | payer OTHER ==
[2022-04-23 21:50] LABS: #Basophils 0.1 thou/uL (0.0-0.2); #Lymphocytes 0.9 thou/uL (1.20-3.40); #Monocytes 0.6 thou/uL (0.11-0.59); #Neutrophils 4.5 thou/uL (1.40-6.50); %Basophils 0.9 % (0.0-1.0); %Eosinophils 0.1 % (0.0-10.0); %Lymphocytes 14.7 % (21.0-51.0); %Monocytes 10.1 % (0.0-10.0); %Neutrophils 74.2 % (42.0-75.0); Hemoglobin 11.4 g/dL (12.0-16.0); Mean Corpuscular HGB CONC 34.3 g/dL (32.0-36.0); Mean Corpuscular Hemoglobin 32.9 pg (27.0-31.0); Mean Corpuscular Volume 96.1 fl (78.0-98.0); Mean Platelet Volume 7.1 fL (7.4-10.4); Platelet Count 279 10x3/uL (130-400); RBC Distribution Width 13.7 % (11.5-14.5); Red Blood Cell (RBC) Count 3.46 mill/uL (4.20-5.40); White Blood Cell (WBC) Count 6.1 10x3/uL (4.8-10.8)
[2022-04-23 22:10] LABS: ALT (SGPT) 49 U/L (8-55); AST (SGOT) 56 U/L (5-34); Albumin 4.2 g/dL (3.4-4.8); Alkaline Phosphatase 84 U/L (40-110); Anion Gap 18 mmol/L (10-20); BUN (Urea Nitrogen) 9 mg/dL (9.8-20.1); Bilirubin, Total 0.4 mg/dL (0.2-1.2); Calc. Creatinine Clearance 0 mL/min (70-130); Carbon Dioxide 21 mmol/L (23-31); Chloride 83 mmol/L (98-107); Estimated GFR 92; Globulin 2.8 g/dL (2.4-3.5); Glucose 150 mg/dL (83-110); Potassium 2.9 mmol/L (3.5-5.1)
[2022-04-23 22:11] LABS: Sodium 119 mmol/L (136-145)
== END 2022-04-23 22:15 | disposition left against medical advice (07) ==
LOC: ERS 19:49
DX: Z53.29 Procedure and treatment not carried out because of patient's decision for other reasons (principal)
CPT/HCPCS: 36415; 71045; 80053; 85025; 93005

== ENCOUNTER 2022-04-24 20:16 | Inpatient (IN) | payer OTHER ==
[2022-04-24] MEDS ORDERED: Ipratropium/Albuterol 3 ML NEB ONE (21:19)
[2022-04-24 22:24] LABS: Hemoglobin 12.6 g/dL (12.0-16.0); Mean Corpuscular HGB CONC 34.5 g/dL (32.0-36.0); Mean Corpuscular Hemoglobin 33.2 pg (27.0-31.0); Mean Corpuscular Volume 96.2 fl (78.0-98.0); Mean Platelet Volume 7.4 fL (7.4-10.4); Platelet Count 323 10x3/uL (130-400); RBC Distribution Width 13.7 % (11.5-14.5); Red Blood Cell (RBC) Count 3.79 mill/uL (4.20-5.40)
[2022-04-24 22:46] LABS: ALT (SGPT) 48 U/L (8-55); AST (SGOT) 43 U/L (5-34); Albumin 4.4 g/dL (3.4-4.8); Alkaline Phosphatase 88 U/L (40-110); Anion Gap 15 mmol/L (10-20); BUN (Urea Nitrogen) 10 mg/dL (9.8-20.1); Bilirubin, Total 0.4 mg/dL (0.2-1.2); Calc. Creatinine Clearance 0 mL/min (70-130); Calcium 9.5 mg/dL (7.8-10.44); Carbon Dioxide 26 mmol/L (23-31); Chloride 85 mmol/L (98-107); Estimated GFR 92; Globulin 3.2 g/dL (2.4-3.5); Glucose 130 mg/dL (83-110); Magnesium 2.1 mg/dL (1.6-2.6); Potassium 4.3 mmol/L (3.5-5.1); Protein, Total 7.6 g/dL (5.8-8.1); Sodium 122 mmol/L (136-145)
[2022-04-24 22:51] LABS: Band 4 % (5-11); Lymphocytes 13 % (21-51); MDiff Complete? YES; Monocytes 9 % (0-10); Neutrophil 72 % (42-75); Platelet Morphology Comment Appears Adequate; RBC Morphology Normal; Reactive Lymphocytes 2 % (0-10)
[2022-04-24] MEDS ORDERED: Sodium Chloride 0.9% 1,000 ML IV SCH (23:45)
[2022-04-24] MEDS ORDERED: Electrolyte Replacement Protocol 1 EACH FS SCH (23:45)
[2022-04-24] MEDS ORDERED: Ondansetron ODT 4 MG TAB PO PRN ×2 (23:50)
[2022-04-24] MEDS ORDERED: Senokot S 8.6-50 MG TAB PO PRN (23:50)
[2022-04-24] MEDS ORDERED: Acetaminophen 325 MG TAB PO PRN (23:50)
[2022-04-24] MEDS ORDERED: Lorazepam 2 MG/ML VIAL IM PRN (23:50)
[2022-04-24] MEDS ORDERED: Lorazepam 1 MG TAB PO PRN (23:50)
[2022-04-25] MEDS ORDERED: Ipratropium/Albuterol 3 ML NEB NEB SCH (01:00)
[2022-04-25 01:19] LABS: Alcohol 20 mg/dL (Less than 10); Magnesium 1.9 mg/dL (1.6-2.6); Phosphorus 3.7 mg/dL (2.3-4.7)
[2022-04-25] MEDS: Thiamine HCl 200 MG/2 ML VIAL SLOW IVP SCH ×2 (01:39→23:04)
[2022-04-25] MEDS: Nicotine 21 MG PATCH TD SCH ×2 (01:40→23:04)
[2022-04-25] MEDS: Lorazepam 1 MG TAB PO SCH ×5 (01:40→23:04)
[2022-04-25 02:11] LABS: SARS-CoV-2 NAA Rapid Test DETECTED (NotDetected)
[2022-04-25] MEDS ORDERED: REMDESIVIR 200 MG in Sodium Chloride 0.9% 250 ML 210 ML IV SCH (04:00)
[2022-04-25] MEDS: Albuterol 200 PUFF (6.7GM INHALER) INH SCH ×3 (05:55→18:44)
[2022-04-25 07:46] LABS: Hemoglobin 12.3 g/dL (12.0-16.0); Mean Corpuscular HGB CONC 33.8 g/dL (32.0-36.0); Mean Corpuscular Hemoglobin 32.9 pg (27.0-31.0); Mean Corpuscular Volume 97.4 fl (78.0-98.0); Mean Platelet Volume 6.8 fL (7.4-10.4); Platelet Count 337 10x3/uL (130-400); RBC Distribution Width 13.6 % (11.5-14.5); Red Blood Cell (RBC) Count 3.76 mill/uL (4.20-5.40); White Blood Cell (WBC) Count 5.6 10x3/uL (4.8-10.8)
[2022-04-25] MEDS ORDERED: Magnesium 2 GM/50 ML(in water) 2 GM in Premix Bag 1 BAG IVPB SCH (08:00)
[2022-04-25 08:07] LABS: Anion Gap 15 mmol/L (10-20); BUN (Urea Nitrogen) 10 mg/dL (9.8-20.1); Calc. Creatinine Clearance 52 mL/min (70-130); Carbon Dioxide 23 mmol/L (23-31); Chloride 91 mmol/L (98-107); Estimated GFR 95; Glucose 122 mg/dL (83-110); Potassium 3.8 mmol/L (3.5-5.1); Sodium 125 mmol/L (136-145)
[2022-04-25 08:43] LABS: Band 2 % (5-11); Lymphocytes 36 % (21-51); Monocytes 19 % (0-10); Neutrophil 43 % (42-75)
[2022-04-25 08:44] LABS: MDiff Complete? YES; Platelet Morphology Comment Appears Adequate
[2022-04-25] MEDS: Folic Acid 1 MG TAB PO SCH (09:29)
[2022-04-25] MEDS: Multivit, Therapeutic 1 TAB PO SCH (09:29)
[2022-04-25] MEDS: Lisinopril 10 MG TAB PO SCH ×2 (09:30→21:14)
[2022-04-25] MEDS: methylPREDNISolone Sod Succ 40 MG VIAL IVP SCH ×2 (09:30→21:14)
[2022-04-25] MEDS: Famotidine 20 MG TAB PO SCH (09:30)
[2022-04-25 11:05] LABS: Anion Gap 16 mmol/L (10-20); BUN (Urea Nitrogen) 9 mg/dL (9.8-20.1); Calc. Creatinine Clearance 54 mL/min (70-130); Calcium 8.9 mg/dL (7.8-10.44); Carbon Dioxide 20 mmol/L (23-31); Chloride 91 mmol/L (98-107); Estimated GFR 96; Glucose 118 mg/dL (83-110); Potassium 4.3 mmol/L (3.5-5.1); Sodium 123 mmol/L (136-145)
[2022-04-25 11:08] VITALS: BMI 15.6
[2022-04-25 15:02] LABS: Anion Gap 16 mmol/L (10-20); BUN (Urea Nitrogen) 8 mg/dL (9.8-20.1); Calc. Creatinine Clearance 52 mL/min (70-130); Carbon Dioxide 21 mmol/L (23-31); Chloride 88 mmol/L (98-107); Potassium 4.1 mmol/L (3.5-5.1); Sodium 121 mmol/L (136-145)
[2022-04-25 15:03] LABS: Calcium 8.9 mg/dL (7.8-10.44); Estimated GFR 95; Glucose 191 mg/dL (83-110)
[2022-04-25] MEDS: guaiFENesin/DM ER PO SCH (21:14)
[2022-04-25] MEDS: Sodium Chloride 1 GM TAB PO SCH (21:14)
[2022-04-25] MEDS ORDERED: Lorazepam 1 MG TAB PO PRN (23:51)
[2022-04-26] MEDS: Albuterol 200 PUFF (6.7GM INHALER) INH SCH ×2 (00:44→06:19)
[2022-04-26 04:35] LABS: Anion Gap 18 mmol/L (10-20); BUN (Urea Nitrogen) 18 mg/dL (9.8-20.1); Calc. Creatinine Clearance 40 mL/min (70-130); Calcium 9.4 mg/dL (7.8-10.44); Carbon Dioxide 20 mmol/L (23-31); Chloride 92 mmol/L (98-107); Estimated GFR 82; Glucose 182 mg/dL (83-110); Potassium 4.4 mmol/L (3.5-5.1); Sodium 126 mmol/L (136-145)
[2022-04-26] MEDS: Lorazepam 1 MG TAB PO SCH ×2 (06:23→11:57)
[2022-04-26 07:42] VITALS: TEMP 98
[2022-04-26] MEDS: Lisinopril 10 MG TAB PO SCH (07:49)
[2022-04-26] MEDS: Famotidine 20 MG TAB PO SCH (07:49)
[2022-04-26] MEDS: methylPREDNISolone Sod Succ 40 MG VIAL IVP SCH (07:50)
[2022-04-26] MEDS: guaiFENesin/DM ER PO SCH (07:50)
[2022-04-26] MEDS: Folic Acid 1 MG TAB PO SCH (07:50)
[2022-04-26] MEDS: Multivit, Therapeutic 1 TAB PO SCH (07:50)
[2022-04-26] MEDS: Sodium Chloride 1 GM TAB PO SCH (07:50)
[2022-04-26] MEDS ORDERED: REMDESIVIR 100 MG in Sodium Chloride 0.9% 250 ML 230 ML IV SCH (09:00)
[2022-04-26 12:46] VITALS: BP 193/116
[2022-04-26] MEDS ORDERED: Mometasone 100 MCG/Formoterol 5 MCG 120 PUFF INHALER INH SCH (18:30)
[2022-04-26] MEDS ORDERED: Lorazepam 0.5 MG TAB PO SCH (23:45)
[2022-04-26] MEDS ORDERED: Lorazepam 1 MG TAB PO PRN (23:51)
[2022-04-27] MEDS ORDERED: Thiamine 100 MG TAB PO SCH (21:00)
[2022-04-27] MEDS ORDERED: Lorazepam 0.5 MG TAB PO PRN (23:51)
== END 2022-04-26 13:15 | disposition left against medical advice (07) | DRG 177 ==
LOC: ERS 20:16 → IMCU/EMU 23:40 → OBSVTOIN 04-25 01:29 → T4-A 04-26 12:22
PROVIDERS: ADMIT Student in an Organized Health Care Education/Training Program; ATTEND Internal Medicine
PROC: XW033E5 Introduction of Remdesivir Anti-infective into Peripheral Vein, Percutaneous Approach, New Technology Group 5 (ICD-10-PCS; principal; 2022-04-25)
PROC: 8E0ZXY6 Isolation (ICD-10-PCS; 2022-04-25)
DX: U07.1 COVID-19 (principal); G93.41 Metabolic encephalopathy; J44.1 Chronic obstructive pulmonary disease with (acute) exacerbation; E22.2 Syndrome of inappropriate secretion of antidiuretic hormone; F17.210 Nicotine dependence, cigarettes, uncomplicated; F10.20 Alcohol dependence, uncomplicated; Z91.14 Patient's other noncompliance with medication regimen; Z88.8 Allergy status to other drugs, medicaments and biological substances; Z79.899 Other long term (current) drug therapy; Z90.49 Acquired absence of other specified parts of digestive tract
CPT/HCPCS: 36415; 71045; 80048; 80053; 80307; 83735; 84100; 85025; 93005; 94640; G0378; J0248; J1650; J2920; J3411; J3475; J7050; J7620; U0002

== ENCOUNTER 2022-04-26 18:21 | Emergency (ER) | payer OTHER ==
[2022-04-26 19:24] LABS: Hemoglobin 11.5 g/dL (12.0-16.0); Mean Corpuscular HGB CONC 33.7 g/dL (32.0-36.0); Mean Corpuscular Hemoglobin 32.9 pg (27.0-31.0); Mean Corpuscular Volume 97.7 fl (78.0-98.0); Mean Platelet Volume 6.9 fL (7.4-10.4); Platelet Count 348 10x3/uL (130-400); RBC Distribution Width 13.4 % (11.5-14.5); Red Blood Cell (RBC) Count 3.49 mill/uL (4.20-5.40); White Blood Cell (WBC) Count 7.8 10x3/uL (4.8-10.8)
[2022-04-26 19:38] LABS: Band 1 % (5-11); Lymphocytes 13 % (21-51); MDiff Complete? YES; Monocytes 11 % (0-10); Neutrophil 73 % (42-75); Platelet Morphology Comment Appears Adequate; Polychromasia SLIGHT = 2-3 cells (100X) (0-2/hpf); Reactive Lymphocytes 2 % (0-10); Small Platelets SLIGHT
[2022-04-26 19:43] LABS: ALT (SGPT) 37 U/L (8-55); AST (SGOT) 30 U/L (5-34); Albumin 4.2 g/dL (3.4-4.8); Alkaline Phosphatase 74 U/L (40-110); Anion Gap 18 mmol/L (10-20); BUN (Urea Nitrogen) 16 mg/dL (9.8-20.1); Bilirubin, Total 0.3 mg/dL (0.2-1.2); Calc. Creatinine Clearance 0 mL/min (70-130); Calcium 9.2 mg/dL (7.8-10.44); Carbon Dioxide 24 mmol/L (23-31); Chloride 87 mmol/L (98-107); Estimated GFR 94; Globulin 2.5 g/dL (2.4-3.5); Glucose 108 mg/dL (83-110); Protein, Total 6.7 g/dL (5.8-8.1); Sodium 125 mmol/L (136-145)
== END 2022-04-26 19:22 | disposition left against medical advice (07) ==
LOC: ERS 18:21
DX: R06.00 Dyspnea, unspecified (principal); I10 Essential (primary) hypertension; J44.9 Chronic obstructive pulmonary disease, unspecified; F17.210 Nicotine dependence, cigarettes, uncomplicated; Z79.899 Other long term (current) drug therapy
CPT/HCPCS: 36415; 83605; 83880; 84484; 85025

== ENCOUNTER 2022-04-27 02:41 | Emergency (ER) | payer OTHER | END 2022-04-27 03:14 | disposition left against medical advice (07) | LOC: ERS 02:41 | DX: R10.11 Right upper quadrant pain (principal); I10 Essential (primary) hypertension; J44.9 Chronic obstructive pulmonary disease, unspecified; F17.210 Nicotine dependence, cigarettes, uncomplicated | CPT/HCPCS: 99284 ==

== ENCOUNTER 2022-04-27 15:30 | Emergency (ER) | payer OTHER ==
[2022-04-27] MEDS ORDERED: Ipratropium/Albuterol 3 ML NEB ONE (15:48)
== END 2022-04-27 16:26 ==
LOC: ERS 15:30
DX: Z53.29 Procedure and treatment not carried out because of patient's decision for other reasons (principal)
CPT/HCPCS: 71045; 93005; 94640; J7620

== ENCOUNTER 2022-04-28 20:09 | Inpatient (IN) | payer OTHER ==
[2022-04-28] MEDS ORDERED: Ondansetron PF 4 MG/2 ML Vial ONE (20:53)
[2022-04-28] MEDS ORDERED: Aspirin Chewable 81 MG TAB ONE (20:53)
[2022-04-28 20:54] LABS: Actual Bicarbonate (HCO3v) 27 mEq/L (22-28); Analyzer IN Cardio ER; Base Excess 2.4 mEq/L (-2.0 to +3.0); Calcium, Ionized (venous) 1.07 mmol/L (1.16-1.32); Chloride (VBG) 84 mmol/L (98-106); Hemoglobin (Hb) 13.5 g/dL (11.7-16.1); Potassium (VBG) 3.61 mmol/L (3.70-5.30); Sodium 121.6 mmol/L (133-146); pH (venous) 7.44 (7.32-7.43)
[2022-04-28 20:56] LABS: Hemoglobin 12.2 g/dL (12.0-16.0); Mean Corpuscular HGB CONC 33.2 g/dL (32.0-36.0); Mean Corpuscular Hemoglobin 31.9 pg (27.0-31.0); Mean Corpuscular Volume 96.3 fl (78.0-98.0); Mean Platelet Volume 6.9 fL (7.4-10.4); Platelet Count 345 10x3/uL (130-400); RBC Distribution Width 13.8 % (11.5-14.5); Red Blood Cell (RBC) Count 3.81 mill/uL (4.20-5.40); White Blood Cell (WBC) Count 16.3 10x3/uL (4.8-10.8)
[2022-04-28] MEDS ORDERED: Ipratropium/Albuterol 3 ML NEB ONE (21:11)
[2022-04-28 21:15] LABS: ALT (SGPT) 59 U/L (8-55); AST (SGOT) 49 U/L (5-34); Albumin 4.2 g/dL (3.4-4.8); Alkaline Phosphatase 78 U/L (40-110); Anion Gap 18 mmol/L (10-20); BUN (Urea Nitrogen) 8 mg/dL (9.8-20.1); Bilirubin, Total 0.6 mg/dL (0.2-1.2); Calc. Creatinine Clearance 0 mL/min (70-130); Calcium 9.1 mg/dL (7.8-10.44); Carbon Dioxide 24 mmol/L (23-31); Chloride 86 mmol/L (98-107); Estimated GFR 96; Globulin 2.8 g/dL (2.4-3.5); Glucose 124 mg/dL (83-110); Potassium 3.8 mmol/L (3.5-5.1); Sodium 124 mmol/L (136-145)
[2022-04-28 21:18] LABS: Lymphocytes 9 % (21-51); MDiff Complete? YES; Monocytes 13 % (0-10); Neutrophil 78 % (42-75); Platelet Morphology Comment Appears Adequate; Polychromasia SLIGHT = 2-3 cells (100X) (0-2/hpf); Schistocytes SLIGHT = 2-5 cells (100X) (0-1/hpf); Stomatocytes SLIGHT = 2-5 cells (100X) (0-1/hpf)
[2022-04-28 22:29] LABS: SARS-CoV-2 NAA Rapid Test DETECTED (NotDetected)
[2022-04-28] MEDS ORDERED: Dexamethasone 4 MG TAB ONE (22:43)
[2022-04-29 00:27] VITALS: BMI 15.3
[2022-04-29] MEDS ORDERED: Acetaminophen 325 MG TAB PO PRN (03:34)
[2022-04-29] MEDS ORDERED: Ondansetron PF 4 MG/2 ML Vial IVP PRN (03:34)
[2022-04-29] MEDS ORDERED: Albuterol 200 PUFF (6.7GM INHALER) INH PRN (07:22)
[2022-04-29] MEDS ORDERED: Electrolyte Replacement Protocol 1 EACH FS SCH (07:30)
[2022-04-29] MEDS ORDERED: Lorazepam 2 MG/ML VIAL IM PRN (07:30)
[2022-04-29] MEDS ORDERED: Lorazepam 1 MG TAB PO PRN (07:30)
[2022-04-29] MEDS ORDERED: Electrolyte Replacement Protocol FS PRN (07:45)
[2022-04-29 08:22] LABS: #Lymphocytes 0.7 thou/uL (1.20-3.40); #Monocytes 0.5 thou/uL (0.11-0.59); #Neutrophils 15.9 thou/uL (1.40-6.50); %Eosinophils 0.1 % (0.0-10.0); %Lymphocytes 4.1 % (21.0-51.0); %Monocytes 2.8 % (0.0-10.0); Hemoglobin 12.5 g/dL (12.0-16.0); Mean Corpuscular HGB CONC 33.4 g/dL (32.0-36.0); Mean Corpuscular Hemoglobin 32.6 pg (27.0-31.0); Mean Corpuscular Volume 97.5 fl (78.0-98.0); Mean Platelet Volume 7.2 fL (7.4-10.4); Platelet Count 345 10x3/uL (130-400); RBC Distribution Width 13.6 % (11.5-14.5); Red Blood Cell (RBC) Count 3.82 mill/uL (4.20-5.40); White Blood Cell (WBC) Count 17.1 10x3/uL (4.8-10.8)
[2022-04-29 08:40] LABS: Anion Gap 17 mmol/L (10-20); BUN (Urea Nitrogen) 8 mg/dL (9.8-20.1); Calc. Creatinine Clearance 48 mL/min (70-130); Calcium 9.6 mg/dL (7.8-10.44); Carbon Dioxide 23 mmol/L (23-31); Chloride 88 mmol/L (98-107); Estimated GFR 94; Glucose 210 mg/dL (83-110); Potassium 4.1 mmol/L (3.5-5.1); Sodium 124 mmol/L (136-145)
[2022-04-29] MEDS ORDERED: REMDESIVIR 100 MG in Sodium Chloride 0.9% 250 ML 230 ML IV SCH (09:00)
[2022-04-29] MEDS ORDERED: Sodium Chloride 1 GM TAB PO SCH (09:00)
[2022-04-29] MEDS ORDERED: Thiamine HCl 200 MG/2 ML VIAL SLOW IVP SCH (09:00)
[2022-04-29] MEDS ORDERED: Folic Acid 1 MG TAB PO SCH (09:00)
[2022-04-29] MEDS ORDERED: Nicotine 14 MG PATCH TD SCH (09:00)
[2022-04-29] MEDS ORDERED: Multivit, Therapeutic 1 TAB PO SCH (09:00)
[2022-04-29] MEDS ORDERED: Dexamethasone 10 MG/ML VIAL SLOW IVP SCH (09:00)
[2022-04-29 15:51] VITALS: BP 128/62; TEMP 98.5
[2022-04-29] MEDS ORDERED: Mometasone 100 MCG/Formoterol 5 MCG 120 PUFF INHALER INH SCH (18:30)
[2022-04-30] MEDS ORDERED: Lorazepam 1 MG TAB PO PRN (07:30)
[2022-05-01] MEDS ORDERED: Lorazepam 1 MG TAB PO PRN (07:30)
[2022-05-02] MEDS ORDERED: Lorazepam 0.5 MG TAB PO PRN (07:30)
[2022-05-02] MEDS ORDERED: Thiamine 100 MG TAB PO SCH (09:00)
== END 2022-04-29 11:47 | disposition left against medical advice (07) | DRG 177 ==
LOC: ERS 20:09 → 2NO 23:05
PROVIDERS: ADMIT Internal Medicine; ATTEND Internal Medicine
PROC: XW033E5 Introduction of Remdesivir Anti-infective into Peripheral Vein, Percutaneous Approach, New Technology Group 5 (ICD-10-PCS; 2022-04-25)
PROC: 8E0ZXY6 Isolation (ICD-10-PCS; principal; 2022-04-28)
DX: U07.1 COVID-19 (principal); G93.41 Metabolic encephalopathy; J12.82 Pneumonia due to coronavirus disease 2019; J96.01 Acute respiratory failure with hypoxia; J44.0 Chronic obstructive pulmonary disease with (acute) lower respiratory infection; J44.1 Chronic obstructive pulmonary disease with (acute) exacerbation; E22.2 Syndrome of inappropriate secretion of antidiuretic hormone; F17.210 Nicotine dependence, cigarettes, uncomplicated; I10 Essential (primary) hypertension; F32.A Depression, unspecified; F10.10 Alcohol abuse, uncomplicated; Z88.1 Allergy status to other antibiotic agents; Z90.49 Acquired absence of other specified parts of digestive tract; Z91.14 Patient's other noncompliance with medication regimen; Z79.899 Other long term (current) drug therapy; R10.11 Right upper quadrant pain; Z88.8 Allergy status to other drugs, medicaments and biological substances; Z53.29 Procedure and treatment not carried out because of patient's decision for other reasons
CPT/HCPCS: 36415; 71045; 80048; 80053; 80307; 82805; 83605; 83735; 83880; 84100; 84484; 85025; 87040; 93005; 94640; 96365; 96375; 99284; G0378; J0248; J1100; J1650; J1956; J2405; J2920; J3411; J3475; J7050; J7620; J8540; U0002

== ENCOUNTER 2022-04-30 18:45 | Emergency (ER) | payer OTHER | END 2022-04-30 19:28 | disposition left against medical advice (07) | LOC: ERS 18:45 | DX: R05.9 Cough, unspecified (principal) | CPT/HCPCS: 71045 ==

== ENCOUNTER 2022-05-02 17:31 | Emergency (ER) | payer OTHER | END 2022-05-02 18:31 | disposition left against medical advice (07) | LOC: ERS 17:31 | DX: R06.02 Shortness of breath (principal); R06.2 Wheezing; J44.9 Chronic obstructive pulmonary disease, unspecified; F17.200 Nicotine dependence, unspecified, uncomplicated | CPT/HCPCS: 71045; 94760 ==

== ENCOUNTER 2022-05-04 13:40 | Emergency (ER) | payer OTHER ==
[2022-05-04] MEDS ORDERED: Albuterol 2.5 MG/0.5 ML NEB ONE (14:16)
[2022-05-04] MEDS ORDERED: Ipratropium Bromide 2.5 ml Neb ONE (14:17)
[2022-05-04 14:31] LABS: #Basophils 0.1 thou/uL (0.0-0.2); #Lymphocytes 1.4 thou/uL (1.20-3.40); #Monocytes 0.8 thou/uL (0.11-0.59); %Basophils 1.8 % (0.0-1.0); %Eosinophils 0.3 % (0.0-10.0); %Lymphocytes 26.9 % (21.0-51.0); %Monocytes 14.7 % (0.0-10.0); %Neutrophils 56.3 % (42.0-75.0); Hemoglobin 10.7 g/dL (12.0-16.0); Mean Corpuscular HGB CONC 34.7 g/dL (32.0-36.0); Mean Corpuscular Hemoglobin 33.6 pg (27.0-31.0); Mean Platelet Volume 6.8 fL (7.4-10.4); Platelet Count 354 10x3/uL (130-400); RBC Distribution Width 13.5 % (11.5-14.5); Red Blood Cell (RBC) Count 3.17 mill/uL (4.20-5.40); White Blood Cell (WBC) Count 5.4 10x3/uL (4.8-10.8)
[2022-05-04 14:54] LABS: ALT (SGPT) 24 U/L (8-55); AST (SGOT) 22 U/L (5-34); Albumin 3.5 g/dL (3.4-4.8); Alkaline Phosphatase 61 U/L (40-110); Anion Gap 16 mmol/L (10-20); BUN (Urea Nitrogen) 4 mg/dL (9.8-20.1); Bilirubin, Total 0.3 mg/dL (0.2-1.2); Calc. Creatinine Clearance 0 mL/min (70-130); Calcium 8.6 mg/dL (7.8-10.44); Carbon Dioxide 20 mmol/L (23-31); Chloride 86 mmol/L (98-107); Estimated GFR 99; Globulin 2.8 g/dL (2.4-3.5); Glucose 87 mg/dL (83-110); Potassium 3.3 mmol/L (3.5-5.1); Protein, Total 6.3 g/dL (5.8-8.1)
[2022-05-04 14:58] LABS: Sodium 119 mmol/L (136-145)
== END 2022-05-04 14:35 | disposition left against medical advice (07) ==
LOC: ERS 13:40
DX: J44.1 Chronic obstructive pulmonary disease with (acute) exacerbation (principal); I10 Essential (primary) hypertension; F17.210 Nicotine dependence, cigarettes, uncomplicated
CPT/HCPCS: 36415; 80053; 83605; 85025; 87040; J7611

== ENCOUNTER 2022-05-14 02:45 | Emergency (ER) | payer OTHER ==
[2022-05-14] MEDS ORDERED: Ipratropium/Albuterol 3 ML NEB ONE (03:26)
[2022-05-14 03:57] LABS: Hemoglobin 11.5 g/dL (12.0-16.0); Mean Corpuscular Hemoglobin 34.5 pg (27.0-31.0); Mean Corpuscular Volume 95.7 fl (78.0-98.0); Mean Platelet Volume 7.2 fL (7.4-10.4); Platelet Count 226 10x3/uL (130-400); RBC Distribution Width 13.7 % (11.5-14.5); Red Blood Cell (RBC) Count 3.32 mill/uL (4.20-5.40); White Blood Cell (WBC) Count 5.4 10x3/uL (4.8-10.8)
[2022-05-14 04:15] LABS: ALT (SGPT) 21 U/L (8-55); AST (SGOT) 30 U/L (5-34); Albumin 3.8 g/dL (3.4-4.8); Alkaline Phosphatase 83 U/L (40-110); Anion Gap 16 mmol/L (10-20); BUN (Urea Nitrogen) 8 mg/dL (9.8-20.1); Bilirubin, Total 0.4 mg/dL (0.2-1.2); Calc. Creatinine Clearance 0 mL/min (70-130); Calcium 9.1 mg/dL (7.8-10.44); Carbon Dioxide 22 mmol/L (23-31); Chloride 82 mmol/L (98-107); Estimated GFR 95; Glucose 98 mg/dL (83-110); Potassium 3.4 mmol/L (3.5-5.1); Protein, Total 6.8 g/dL (5.8-8.1)
[2022-05-14 04:27] LABS: Lymphocytes 25 % (21-51); MDiff Complete? YES; Monocytes 30 % (0-10); Neutrophil 44 % (42-75); Platelet Morphology Comment Appears Adequate; Polychromasia SLIGHT = 2-3 cells (100X) (0-2/hpf); Reactive Lymphocytes 1 % (0-10)
[2022-05-14 04:28] LABS: Sodium 117 mmol/L (136-145)
== END 2022-05-14 03:50 | disposition left against medical advice (07) ==
LOC: ERS 02:45
DX: Z53.29 Procedure and treatment not carried out because of patient's decision for other reasons (principal)
CPT/HCPCS: 36415; 71045; 80053; 84484; 85025; 94640; J7620

== ENCOUNTER 2022-05-15 01:50 | Emergency (ER) | payer OTHER ==
[2022-05-15] MEDS ORDERED: Ipratropium/Albuterol 3 ML NEB ONE (02:13)
== END 2022-05-15 02:29 | disposition left against medical advice (07) ==
LOC: ERS 01:50
DX: R06.02 Shortness of breath (principal)
CPT/HCPCS: 71045; 93005; J7620

== ENCOUNTER 2022-05-15 19:42 | Emergency (ER) | payer OTHER | END 2022-05-15 21:22 | disposition left against medical advice (07) | LOC: ERS 19:42 | DX: Z53.21 Procedure and treatment not carried out due to patient leaving prior to being seen by health care provider (principal) ==

== ENCOUNTER 2022-05-15 21:45 | Inpatient (IN) | payer OTHER ==
[2022-05-15 23:09] LABS: Hemoglobin 11.5 g/dL (12.0-16.0); Mean Corpuscular HGB CONC 35.4 g/dL (32.0-36.0); Mean Corpuscular Hemoglobin 33.9 pg (27.0-31.0); Mean Corpuscular Volume 95.6 fl (78.0-98.0); Mean Platelet Volume 7.1 fL (7.4-10.4); Platelet Count 227 10x3/uL (130-400); RBC Distribution Width 13.9 % (11.5-14.5)
[2022-05-15] MEDS ORDERED: Ipratropium/Albuterol 3 ML NEB ONE (23:20)
[2022-05-15 23:25] LABS: ALT (SGPT) 20 U/L (8-55); AST (SGOT) 28 U/L (5-34); Albumin 3.6 g/dL (3.4-4.8); Alkaline Phosphatase 83 U/L (40-110); Anion Gap 16 mmol/L (10-20); BUN (Urea Nitrogen) 9 mg/dL (9.8-20.1); Bilirubin, Total 0.3 mg/dL (0.2-1.2); Calc. Creatinine Clearance 0 mL/min (70-130); Calcium 8.8 mg/dL (7.8-10.44); Carbon Dioxide 24 mmol/L (23-31); Chloride 81 mmol/L (98-107); Estimated GFR 96; Globulin 2.9 g/dL (2.4-3.5); Glucose 92 mg/dL (83-110); Lipase 64 U/L (8-78); Magnesium 1.5 mg/dL (1.6-2.6); Potassium 3.7 mmol/L (3.5-5.1); Protein, Total 6.5 g/dL (5.8-8.1)
[2022-05-15 23:31] LABS: Sodium 117 mmol/L (136-145)
[2022-05-15 23:35] LABS: Lymphocytes 32 % (21-51); MDiff Complete? YES; Monocytes 17 % (0-10); Myelocyte 1 % (0-0); Neutrophil 50 % (42-75); Platelet Morphology Comment Appears Adequate; Polychromasia SLIGHT = 2-3 cells (100X) (0-2/hpf); Stomatocytes SLIGHT = 2-5 cells (100X) (0-1/hpf)
[2022-05-15] MEDS ORDERED: Ondansetron ODT 4 MG TAB ONE (23:42)
[2022-05-16] MEDS ORDERED: Ondansetron ODT 4 MG TAB PO PRN ×2 (00:24)
[2022-05-16] MEDS ORDERED: Lorazepam 2 MG/ML VIAL IM PRN (00:24)
[2022-05-16] MEDS ORDERED: Ondansetron PF 4 MG/2 ML Vial IVP PRN (00:24)
[2022-05-16] MEDS ORDERED: Lorazepam 1 MG TAB PO PRN (00:24)
[2022-05-16] MEDS ORDERED: Acetaminophen 325 MG TAB PO PRN (00:24)
[2022-05-16] MEDS ORDERED: Ipratropium/Albuterol 3 ML NEB NEB PRN (00:29)
[2022-05-16] MEDS ORDERED: Thiamine HCl 200 MG/2 ML VIAL SLOW IVP SCH (00:30)
[2022-05-16] MEDS ORDERED: Electrolyte Replacement Protocol 1 EACH FS SCH (00:30)
[2022-05-16] MEDS ORDERED: Magnesium 2 GM/50 ML(in water) 2 GM in Premix Bag 1 BAG IVPB SCH (00:45)
[2022-05-16 02:13] LABS: Hemoglobin 11.8 g/dL (12.0-16.0); Mean Corpuscular HGB CONC 35.1 g/dL (32.0-36.0); Mean Corpuscular Hemoglobin 33.4 pg (27.0-31.0); Mean Corpuscular Volume 95.3 fl (78.0-98.0); Mean Platelet Volume 7.4 fL (7.4-10.4); Platelet Count 222 10x3/uL (130-400); RBC Distribution Width 13.9 % (11.5-14.5); Red Blood Cell (RBC) Count 3.54 mill/uL (4.20-5.40); White Blood Cell (WBC) Count 4.5 10x3/uL (4.8-10.8)
[2022-05-16 02:29] LABS: Chloride 87 mmol/L (98-107); Potassium 3.7 mmol/L (3.5-5.1); Sodium 122 mmol/L (136-145)
[2022-05-16 02:30] LABS: Glucose 77 mg/dL (83-110)
[2022-05-16 02:32] LABS: Anion Gap 17 mmol/L (10-20); Carbon Dioxide 22 mmol/L (23-31)
[2022-05-16 02:34] LABS: Band 1 % (5-11); Calc. Creatinine Clearance 0 mL/min (70-130); Estimated GFR 96; Lymphocytes 32 % (21-51); MDiff Complete? YES; Monocytes 18 % (0-10); Neutrophil 49 % (42-75); Phosphorus 3.5 mg/dL (2.3-4.7); Platelet Morphology Comment Appears Adequate; Polychromasia SLIGHT = 2-3 cells (100X) (0-2/hpf)
[2022-05-16 02:35] LABS: BUN (Urea Nitrogen) 8 mg/dL (9.8-20.1)
[2022-05-16 02:36] LABS: Magnesium 1.7 mg/dL (1.6-2.6)
[2022-05-16] MEDS: Lorazepam 1 MG TAB PO SCH ×4 (02:49→12:27)
[2022-05-16 03:08] VITALS: BMI 37.0
[2022-05-16] MEDS ORDERED: Sodium Chloride 0.9% 1,000 ML IV SCH (05:00)
[2022-05-16 05:45] LABS: SARS-CoV-2 NAA Rapid Test Not Detected (NotDetected)
[2022-05-16 07:11] LABS: Anion Gap 12 mmol/L (10-20); BUN (Urea Nitrogen) 9 mg/dL (9.8-20.1); Calc. Creatinine Clearance 102 mL/min (70-130); Calcium 8.7 mg/dL (7.8-10.44); Carbon Dioxide 25 mmol/L (23-31); Chloride 86 mmol/L (98-107); Estimated GFR 92; Glucose 178 mg/dL (83-110); Potassium 3.9 mmol/L (3.5-5.1)
[2022-05-16 07:15] LABS: Sodium 119 mmol/L (136-145)
[2022-05-16 07:43] VITALS: TEMP 98.1
[2022-05-16] MEDS ORDERED: Lisinopril 10 MG TAB PO SCH (09:00)
[2022-05-16] MEDS ORDERED: Folic Acid 1 MG TAB PO SCH (09:00)
[2022-05-16] MEDS ORDERED: Multivit, Therapeutic 1 TAB PO SCH (09:00)
[2022-05-16] MEDS ORDERED: Famotidine 20 MG TAB PO SCH (09:00)
[2022-05-16] MEDS ORDERED: Famotidine/PF 20 mg/2ml Vial SLOW IVP SCH (09:00)
[2022-05-16 09:35] LABS: Anion Gap 12 mmol/L (10-20); BUN (Urea Nitrogen) 9 mg/dL (9.8-20.1); Calc. Creatinine Clearance 111 mL/min (70-130); Calcium 8.5 mg/dL (7.8-10.44); Carbon Dioxide 24 mmol/L (23-31); Chloride 88 mmol/L (98-107); Estimated GFR 95; Glucose 141 mg/dL (83-110); Potassium 4.1 mmol/L (3.5-5.1); Sodium 120 mmol/L (136-145)
[2022-05-16 13:55] LABS: Anion Gap 15 mmol/L (10-20); BUN (Urea Nitrogen) 11 mg/dL (9.8-20.1); Calc. Creatinine Clearance 108 mL/min (70-130); Carbon Dioxide 23 mmol/L (23-31); Chloride 91 mmol/L (98-107); Estimated GFR 94; Glucose 142 mg/dL (83-110); Potassium 4.5 mmol/L (3.5-5.1); Sodium 124 mmol/L (136-145)
[2022-05-16 14:41] VITALS: BP 104/51
[2022-05-16 15:19] LABS: Amphetamine Not Detected (NotDetected); Barbiturates Screen Not Detected (NotDetected); Benzodiazepine Screen Detected (NotDetected); Cocaine Metabolite Screen Not Detected (NotDetected); Methadone Not Detected (NotDetected); Methamphetamine Not Detected (NotDetected); Opiate Screen Not Detected (NotDetected); Oxycodone Screen Not Detected (NotDetected); Phencyclidine (PCP) Not Detected (NotDetected); THC/Cannabinoid Screen Not Detected (NotDetected); Tricyclic Screen Not Detected (NotDetected)
[2022-05-17] MEDS ORDERED: Lorazepam 1 MG TAB PO PRN (00:24)
[2022-05-18] MEDS ORDERED: Lorazepam 1 MG TAB PO PRN (00:24)
[2022-05-18] MEDS ORDERED: Lorazepam 0.5 MG TAB PO SCH (00:30)
[2022-05-18] MEDS ORDERED: Thiamine 100 MG TAB PO SCH (21:00)
[2022-05-19] MEDS ORDERED: Lorazepam 0.5 MG TAB PO PRN (00:24)
== END 2022-05-16 17:27 | disposition left against medical advice (07) | DRG 644 ==
LOC: ERS 21:45 → ERHOLD 05-16 00:11 → IMCU/EMU 05-16 02:38
PROVIDERS: ADMIT Student in an Organized Health Care Education/Training Program; ATTEND Student in an Organized Health Care Education/Training Program
DX: E22.2 Syndrome of inappropriate secretion of antidiuretic hormone (principal); E44.0 Moderate protein-calorie malnutrition; J44.9 Chronic obstructive pulmonary disease, unspecified; I10 Essential (primary) hypertension; F17.210 Nicotine dependence, cigarettes, uncomplicated; F10.10 Alcohol abuse, uncomplicated; Z88.1 Allergy status to other antibiotic agents; Z68.37 Body mass index [BMI] 37.0-37.9, adult
CPT/HCPCS: 36415; 71045; 80048; 80053; 80306; 83690; 83735; 83880; 84100; 84484; 85025; 93005; 94640; J3411; J3475; J7050; J7620; Q0162; U0002

== ENCOUNTER 2022-05-19 01:58 | Emergency (ER) | payer OTHER ==
[2022-05-19 04:09] LABS: Hemoglobin 12.1 g/dL (12.0-16.0); Mean Corpuscular HGB CONC 34.2 g/dL (32.0-36.0); Mean Corpuscular Hemoglobin 33.1 pg (27.0-31.0); Mean Corpuscular Volume 96.8 fl (78.0-98.0); Mean Platelet Volume 7.1 fL (7.4-10.4); Platelet Count 257 10x3/uL (130-400); Red Blood Cell (RBC) Count 3.65 mill/uL (4.20-5.40); White Blood Cell (WBC) Count 3.7 10x3/uL (4.8-10.8)
[2022-05-19 04:30] LABS: ALT (SGPT) 30 U/L (8-55); AST (SGOT) 43 U/L (5-34); Albumin 3.8 g/dL (3.4-4.8); Alkaline Phosphatase 99 U/L (40-110); Anion Gap 17 mmol/L (10-20); BUN (Urea Nitrogen) 5 mg/dL (9.8-20.1); Bilirubin, Total 0.4 mg/dL (0.2-1.2); Calc. Creatinine Clearance 0 mL/min (70-130); Calcium 9.2 mg/dL (7.8-10.44); Carbon Dioxide 19 mmol/L (23-31); Chloride 88 mmol/L (98-107); Estimated GFR 97; Globulin 3.6 g/dL (2.4-3.5); Glucose 87 mg/dL (83-110); Potassium 3.9 mmol/L (3.5-5.1); Protein, Total 7.4 g/dL (5.8-8.1); Sodium 120 mmol/L (136-145)
[2022-05-19 04:43] LABS: Band 2 % (5-11); Lymphocytes 54 % (21-51); MDiff Complete? YES; Monocytes 15 % (0-10); Neutrophil 29 % (42-75); Platelet Morphology Comment Appears Adequate; RBC Morphology Normal
[2022-05-19] MEDS ORDERED: methylPREDNISolone Sod Succ/PF 125 MG/2 ML VIAL ONE (05:26)
== END 2022-05-19 06:20 | disposition home or self-care (01) ==
LOC: ERS 01:58
DX: J44.1 Chronic obstructive pulmonary disease with (acute) exacerbation (principal); D72.819 Decreased white blood cell count, unspecified; I10 Essential (primary) hypertension; F17.200 Nicotine dependence, unspecified, uncomplicated
CPT/HCPCS: 36415; 71045; 80053; 84484; 85025; 93005; 94640; 96374; J2930

== ENCOUNTER 2022-05-20 22:43 | Emergency (ER) | payer OTHER | END 2022-05-20 23:13 | LOC: ERS 22:43 | DX: F10.129 Alcohol abuse with intoxication, unspecified (principal); I10 Essential (primary) hypertension; J44.9 Chronic obstructive pulmonary disease, unspecified | CPT/HCPCS: 99282 ==

== ENCOUNTER 2022-05-22 17:49 | Emergency (ER) | payer OTHER | END 2022-05-22 19:21 | disposition left against medical advice (07) | LOC: ERS 17:49 | DX: Z53.29 Procedure and treatment not carried out because of patient's decision for other reasons (principal) ==

== ENCOUNTER 2022-06-13 21:25 | Emergency (ER) | payer OTHER | END 2022-06-13 21:40 | disposition left against medical advice (07) | LOC: ERS 21:25 | DX: Z53.21 Procedure and treatment not carried out due to patient leaving prior to being seen by health care provider (principal) ==

== ENCOUNTER 2022-06-22 19:47 | Emergency (ER) | payer OTHER | END 2022-06-22 20:12 | disposition left against medical advice (07) | LOC: ERS 19:47 | DX: Z53.29 Procedure and treatment not carried out because of patient's decision for other reasons (principal) ==

== ENCOUNTER 2022-06-24 15:21 | Emergency (ER) | payer OTHER ==
[2022-06-24] MEDS ORDERED: Ketorolac Tromethamine 30 MG/ML VIAL ONE (15:33)
[2022-06-24] MEDS ORDERED: Ondansetron PF 4 MG/2 ML Vial ONE (16:01)
[2022-06-24] MEDS ORDERED: fentaNYL 50 mcg/mL 1 mL Vial ONE (16:03)
== END 2022-06-24 17:49 | disposition home or self-care (01) ==
LOC: ERS 15:21
DX: S42.352A Displaced comminuted fracture of shaft of humerus, left arm, initial encounter for closed fracture (principal); F17.210 Nicotine dependence, cigarettes, uncomplicated; W18.30XA Fall on same level, unspecified, initial encounter; Y92.091 Bathroom in other non-institutional residence as the place of occurrence of the external cause
CPT/HCPCS: 71045; 73060; J3010; 96374; 96375; J1885; J2405

== ENCOUNTER 2022-06-25 09:23 | Emergency (ER) | payer OTHER ==
[2022-06-25] MEDS ORDERED: Ondansetron ODT 4 MG TAB ONE (10:17)
[2022-06-25] MEDS ORDERED: Ibuprofen 200 MG TAB ONE (10:53)
== END 2022-06-25 10:58 | disposition home or self-care (01) ==
LOC: ERS 09:23
DX: S42.202A Unspecified fracture of upper end of left humerus, initial encounter for closed fracture (principal); F17.210 Nicotine dependence, cigarettes, uncomplicated; W18.30XA Fall on same level, unspecified, initial encounter; Y92.524 Gas station as the place of occurrence of the external cause
CPT/HCPCS: 99283; Q0162

== ENCOUNTER 2022-07-27 08:24 | Inpatient (IN) | payer OTHER ==
[2022-07-27] MEDS ORDERED: Ondansetron PF 4 MG/2 ML Vial ONE (08:37)
[2022-07-27] MEDS ORDERED: Ondansetron ODT 4 MG TAB ONE (08:48)
[2022-07-27] MEDS ORDERED: Famotidine 20 MG TAB ONE (08:57)
[2022-07-27 09:24] LABS: #Monocytes 0.8 thou/uL (0.11-0.59); #Neutrophils 1.7 thou/uL (1.40-6.50); %Basophils 0.3 % (0.0-1.0); %Eosinophils 0.3 % (0.0-10.0); %Monocytes 19.3 % (0.0-10.0); %Neutrophils 43.3 % (42.0-75.0); Hemoglobin 11.5 g/dL (12.0-16.0); Mean Corpuscular HGB CONC 34.8 g/dL (32.0-36.0); Mean Corpuscular Hemoglobin 29.9 pg (27.0-31.0); Mean Corpuscular Volume 85.9 fl (78.0-98.0); Mean Platelet Volume 10.1 fL (7.4-10.4); Platelet Count 228 10x3/uL (130-400); RBC Distribution Width 15.5 % (11.5-14.5); Red Blood Cell (RBC) Count 3.84 mill/uL (4.20-5.40); White Blood Cell (WBC) Count 3.9 10x3/uL (4.8-10.8)
[2022-07-27 09:50] LABS: ALT (SGPT) 15 U/L (8-55); AST (SGOT) 24 U/L (5-34); Albumin 4.5 g/dL (3.4-4.8); Alcohol 44.4 mg/dL (Less than 10); Alkaline Phosphatase 91 U/L (40-110); Anion Gap 18 mmol/L (10-20); BUN (Urea Nitrogen) 8 mg/dL (9.8-20.1); Bilirubin, Total 0.5 mg/dL (0.2-1.2); Calc. Creatinine Clearance 0 mL/min (70-130); Calcium 9.4 mg/dL (7.8-10.44); Carbon Dioxide 21 mmol/L (23-31); Chloride 79 mmol/L (98-107); Estimated GFR 95; Glucose 101 mg/dL (83-110); Lipase 41 U/L (8-78); Magnesium 1.8 mg/dL (1.6-2.6); Potassium 3.6 mmol/L (3.5-5.1); Protein, Total 7.5 g/dL (5.8-8.1)
[2022-07-27 10:11] LABS: Sodium 114 mmol/L (136-145)
[2022-07-27] MEDS ORDERED: Lorazepam 2 MG/ML VIAL IM PRN (10:40)
[2022-07-27] MEDS ORDERED: Ondansetron ODT 4 MG TAB PO PRN (10:40)
[2022-07-27] MEDS ORDERED: Lorazepam 1 MG TAB PO PRN (10:40)
[2022-07-27] MEDS ORDERED: Ondansetron PF 4 MG/2 ML Vial IVP PRN (10:41)
[2022-07-27] MEDS ORDERED: Acetaminophen 325 MG TAB PO PRN (10:41)
[2022-07-27] MEDS ORDERED: Sodium Chloride 0.9% 1,000 ML IV SCH (10:45)
[2022-07-27] MEDS ORDERED: Electrolyte Replacement Protocol 1 EACH FS SCH (10:45)
[2022-07-27] MEDS ORDERED: Morphine 4 MG/ML VIAL ONE (10:57)
[2022-07-27 11:37] LABS: Magnesium 1.8 mg/dL (1.6-2.6); Phosphorus 4.6 mg/dL (2.3-4.7)
[2022-07-27] MEDS ORDERED: Lorazepam 1 MG TAB ONE (13:06)
[2022-07-27] MEDS: Lorazepam 1 MG TAB PO SCH ×3 (13:09→22:11)
[2022-07-27] MEDS: Thiamine HCl 200 MG/2 ML VIAL SLOW IVP SCH (13:43)
[2022-07-27 14:24] VITALS: BMI 16.5
[2022-07-27 17:15] LABS: Amphetamine Not Detected (NotDetected); Barbiturates Screen Not Detected (NotDetected); Benzodiazepine Screen Not Detected (NotDetected); Cocaine Metabolite Screen Not Detected (NotDetected); Methadone Not Detected (NotDetected); Methamphetamine Not Detected (NotDetected); Opiate Screen Detected (NotDetected); Oxycodone Screen Not Detected (NotDetected); Phencyclidine (PCP) Not Detected (NotDetected); THC/Cannabinoid Screen Not Detected (NotDetected); Tricyclic Screen Not Detected (NotDetected)
[2022-07-27 18:07] LABS: Anion Gap 15 mmol/L (10-20); BUN (Urea Nitrogen) 10 mg/dL (9.8-20.1); Calc. Creatinine Clearance 46 mL/min (70-130); Calcium 9.7 mg/dL (7.8-10.44); Carbon Dioxide 22 mmol/L (23-31); Chloride 88 mmol/L (98-107); Estimated GFR 89; Glucose 113 mg/dL (83-110); Sodium 121 mmol/L (136-145)
[2022-07-27] MEDS: HYDROcodone/Acetaminophen 5/325 mg Tablet PO PRN (20:15)
[2022-07-28] MEDS: HYDROcodone/Acetaminophen 5/325 mg Tablet PO PRN ×3 (01:21→17:57)
[2022-07-28] MEDS: Lorazepam 1 MG TAB PO SCH ×4 (06:08→21:26)
[2022-07-28 06:49] LABS: Hemoglobin 11.3 g/dL (12.0-16.0); Manual Diff?? YES; Mean Corpuscular HGB CONC 33.4 g/dL (32.0-36.0); Mean Corpuscular Hemoglobin 30.1 pg (27.0-31.0); Mean Platelet Volume 10.1 fL (7.4-10.4); Platelet Count 221 10x3/uL (130-400); RBC Distribution Width 15.9 % (11.5-14.5); Red Blood Cell (RBC) Count 3.76 mill/uL (4.20-5.40); White Blood Cell (WBC) Count 4.6 10x3/uL (4.8-10.8)
[2022-07-28 06:51] LABS: Delete Auto Diff?? YES; Mean Corpuscular Volume 89.9 fl (78.0-98.0)
[2022-07-28 07:25] LABS: ALT (SGPT) 12 U/L (8-55); AST (SGOT) 16 U/L (5-34); Albumin 4.2 g/dL (3.4-4.8); Alkaline Phosphatase 86 U/L (40-110); Anion Gap 14 mmol/L (10-20); BUN (Urea Nitrogen) 21 mg/dL (9.8-20.1); Bilirubin, Total 0.3 mg/dL (0.2-1.2); Calc. Creatinine Clearance 47 mL/min (70-130); Calcium 9.9 mg/dL (7.8-10.44); Carbon Dioxide 25 mmol/L (23-31); Chloride 91 mmol/L (98-107); Estimated GFR 92; Globulin 2.8 g/dL (2.4-3.5); Glucose 116 mg/dL (83-110); Sodium 126 mmol/L (136-145)
[2022-07-28 07:52] LABS: Anisocytosis SLIGHT = 6-15 cells HPF (0-5); CellaVision Operator ID LAB.NR; Lymphocytes 30 % (21-51); Macrocytosis SLIGHT = 6-15 cells HPF (0-5); Monocytes 13 % (0-10); Neutrophil 57 % (42-75); Platelet Adequacy Comment Platelets Normal; Total Cell Count 101
[2022-07-28] MEDS ORDERED: Magnesium 2 GM/50 ML(in water) 2 GM in Premix Bag 1 BAG IVPB SCH (08:00)
[2022-07-28] MEDS: Lisinopril 10 MG TAB PO SCH (10:31)
[2022-07-28] MEDS: Folic Acid 1 MG TAB PO SCH (10:31)
[2022-07-28] MEDS: Magnesium Oxide 400 MG TAB PO SCH (10:32)
[2022-07-28] MEDS: Multivit, Therapeutic 1 TAB PO SCH (10:32)
[2022-07-28] MEDS: Thiamine HCl 200 MG/2 ML VIAL SLOW IVP SCH (10:33)
[2022-07-28] MEDS ORDERED: Lorazepam 1 MG TAB PO PRN (10:40)
[2022-07-29] MEDS: HYDROcodone/Acetaminophen 5/325 mg Tablet PO PRN ×2 (00:30→08:14)
[2022-07-29] MEDS: Lorazepam 1 MG TAB PO SCH (05:09)
[2022-07-29] MEDS: Magnesium Oxide 400 MG TAB PO SCH (08:13)
[2022-07-29] MEDS: Multivit, Therapeutic 1 TAB PO SCH (08:13)
[2022-07-29] MEDS: Lisinopril 10 MG TAB PO SCH (08:14)
[2022-07-29] MEDS: Folic Acid 1 MG TAB PO SCH (08:14)
[2022-07-29 08:23] LABS: #Monocytes 0.7 thou/uL (0.11-0.59); #Neutrophils 1.2 thou/uL (1.40-6.50); %Basophils 0.3 % (0.0-1.0); %Lymphocytes 42.9 % (21.0-51.0); %Neutrophils 34.7 % (42.0-75.0); Hemoglobin 11.1 g/dL (12.0-16.0); Manual Diff?? YES; Mean Corpuscular HGB CONC 32.6 g/dL (32.0-36.0); Mean Corpuscular Hemoglobin 29.4 pg (27.0-31.0); Mean Corpuscular Volume 90.2 fl (78.0-98.0); Mean Platelet Volume 10.4 fL (7.4-10.4); Platelet Count 218 10x3/uL (130-400); Red Blood Cell (RBC) Count 3.77 mill/uL (4.20-5.40); White Blood Cell (WBC) Count 3.5 10x3/uL (4.8-10.8)
[2022-07-29 08:39] LABS: ALT (SGPT) 11 U/L (8-55); AST (SGOT) 17 U/L (5-34); Albumin 4.3 g/dL (3.4-4.8); Alkaline Phosphatase 79 U/L (40-110); Anion Gap 15 mmol/L (10-20); BUN (Urea Nitrogen) 27 mg/dL (9.8-20.1); Bilirubin, Total 0.2 mg/dL (0.2-1.2); Calc. Creatinine Clearance 48 mL/min (70-130); Calcium 10.3 mg/dL (7.8-10.44); Carbon Dioxide 28 mmol/L (23-31); Chloride 89 mmol/L (98-107); Estimated GFR 92; Globulin 2.9 g/dL (2.4-3.5); Glucose 119 mg/dL (83-110); Potassium 4.9 mmol/L (3.5-5.1); Protein, Total 7.2 g/dL (5.8-8.1); Sodium 127 mmol/L (136-145)
[2022-07-29 09:13] LABS: Anisocytosis SLIGHT = 6-15 cells HPF (0-5); CellaVision Operator ID LAB.NR; Hypochromia SLIGHT = 6-15 cells HPF (0-5); Lymphocytes 37 % (21-51); Macrocytosis SLIGHT = 6-15 cells HPF (0-5); Monocytes 14 % (0-10); Neutrophil 49 % (42-75); Platelet Adequacy Comment Platelets Normal; Polychromasia SLIGHT = 2-3 cells HPF (0-2); Total Cell Count 100; Vacuoles SLIGHT
[2022-07-29] MEDS ORDERED: Lorazepam 1 MG TAB PO PRN (10:40)
[2022-07-29] MEDS ORDERED: Lorazepam 0.5 MG TAB PO SCH (10:45)
[2022-07-29 12:42] VITALS: BP 94/71; TEMP 97.6
[2022-07-29] MEDS: Thiamine HCl 200 MG/2 ML VIAL SLOW IVP SCH (18:20)
[2022-07-30] MEDS ORDERED: Thiamine 100 MG TAB PO SCH (09:00)
[2022-07-30] MEDS ORDERED: Lorazepam 0.5 MG TAB PO PRN (10:40)
== END 2022-07-29 14:28 | disposition left against medical advice (07) | DRG 641 ==
LOC: ERS 08:24 → SUATTDRO 08:24 → ERHOLD 10:43 → T4-A 14:36
PROVIDERS: ADMIT Internal Medicine; ATTEND Internal Medicine
DX: E87.1 Hypo-osmolality and hyponatremia (principal); E46 Unspecified protein-calorie malnutrition; Z68.1 Body mass index [BMI] 19.9 or less, adult; I10 Essential (primary) hypertension; J44.9 Chronic obstructive pulmonary disease, unspecified; Z88.1 Allergy status to other antibiotic agents; F10.10 Alcohol abuse, uncomplicated; S42.302D Unspecified fracture of shaft of humerus, left arm, subsequent encounter for fracture with routine healing; Z88.8 Allergy status to other drugs, medicaments and biological substances; Z90.49 Acquired absence of other specified parts of digestive tract; F17.210 Nicotine dependence, cigarettes, uncomplicated
CPT/HCPCS: 36415; 71045; 80053; 80306; 80307; 83690; 83735; 83930; 83935; 84100; 84300; 85025; 93005; 94760; 96374; J1650; J2270; J2405; J3411; J3475; J7050; Q0162

== ENCOUNTER 2022-07-29 18:13 | Emergency (ER) | payer OTHER | END 2022-07-29 18:59 | disposition home or self-care (01) | LOC: ERS 18:13 | DX: S42.302D Unspecified fracture of shaft of humerus, left arm, subsequent encounter for fracture with routine healing (principal); W19.XXXD Unspecified fall, subsequent encounter; F17.210 Nicotine dependence, cigarettes, uncomplicated | CPT/HCPCS: 71045; 93005; 94760 ==

== ENCOUNTER 2022-07-30 06:13 | Emergency (ER) | payer OTHER ==
[2022-07-30] MEDS ORDERED: Ketorolac Tromethamine 30 MG/ML VIAL ONE (06:34)
== END 2022-07-30 08:36 | disposition home or self-care (01) ==
LOC: ERS 06:13
DX: S63.92XA Sprain of unspecified part of left wrist and hand, initial encounter (principal); W18.30XA Fall on same level, unspecified, initial encounter
CPT/HCPCS: 70450; 72125; 96372; J1885

== ENCOUNTER 2022-08-02 17:38 | Emergency (ER) | payer OTHER | END 2022-08-02 18:05 | disposition left against medical advice (07) | LOC: ERS 17:38 | DX: Z53.21 Procedure and treatment not carried out due to patient leaving prior to being seen by health care provider (principal) ==

== ENCOUNTER 2022-08-05 15:51 | Emergency (ER) | payer OTHER | END 2022-08-05 16:30 | disposition left against medical advice (07) | LOC: ERS 15:51 | DX: Z53.21 Procedure and treatment not carried out due to patient leaving prior to being seen by health care provider (principal) ==

== ENCOUNTER 2022-08-08 03:36 | Emergency (ER) | payer OTHER | END 2022-08-08 03:47 | disposition home or self-care (01) | LOC: ERS 03:36 | DX: M25.532 Pain in left wrist (principal); W18.30XA Fall on same level, unspecified, initial encounter | CPT/HCPCS: 99281 ==

== ENCOUNTER 2022-08-08 10:44 | Emergency (ER) | payer OTHER | END 2022-08-08 11:34 | disposition left against medical advice (07) | LOC: ERS 10:44 | DX: Z53.29 Procedure and treatment not carried out because of patient's decision for other reasons (principal) ==

== ENCOUNTER 2022-08-08 18:42 | Emergency (ER) | payer OTHER | END 2022-08-08 19:42 | disposition left against medical advice (07) | LOC: ERS 18:42 | DX: Z53.21 Procedure and treatment not carried out due to patient leaving prior to being seen by health care provider (principal) ==

== ENCOUNTER 2022-12-07 23:23 | Inpatient (IN) | payer OTHER ==
[2022-12-07] MEDS ORDERED: Multivitamins, Adult 10 ML, Thiamine HCl 100 MG, Folic Acid 1 MG in Dextrose 5 %-0.45 %... IV SCH (23:59)
[2022-12-08 00:23] LABS: Hematocrit 32.3 % (36.0-47.0); Hemoglobin 11.6 g/dL (12.0-16.0); Manual Diff?? YES; Mean Corpuscular HGB CONC 35.9 g/dL (32.0-36.0); Mean Corpuscular Hemoglobin 29.2 pg (27.0-31.0); Mean Corpuscular Volume 81.4 fl (78.0-98.0); Platelet Count 149 10x3/uL (130-400); RBC Distribution Width 17.4 % (11.5-14.5); Red Blood Cell (RBC) Count 3.97 mill/uL (4.20-5.40); White Blood Cell (WBC) Count 4.7 10x3/uL (4.8-10.8)
[2022-12-08 00:27] LABS: Delete Auto Diff?? YES
[2022-12-08 00:47] LABS: Acetaminophen Less than 10 mcg/mL (10.0-30.0); Alcohol 75.6 mg/dL (Less than 10); Lipase 37 U/L (8-78); Magnesium 1.8 mg/dL (1.6-2.6); Salicylate Less than 8.0 mg/dL (15.0-30.0)
[2022-12-08 00:48] LABS: ALT (SGPT) 128 U/L (8-55); AST (SGOT) 100 U/L (5-34); Albumin 4.1 g/dL (3.4-4.8); Alkaline Phosphatase 95 U/L (40-110); Anion Gap 20 mmol/L (10-20); BUN (Urea Nitrogen) Less than 4 mg/dL (9.8-20.1); Bilirubin, Total 0.6 mg/dL (0.2-1.2); Calc. Creatinine Clearance 0 mL/min (70-130); Calcium 8.8 mg/dL (7.8-10.44); Carbon Dioxide 25 mmol/L (23-31); Chloride 71 mmol/L (98-107); Estimated GFR 98; Globulin 2.2 g/dL (2.4-3.5); Glucose 124 mg/dL (83-110); Potassium 2.8 mmol/L (3.5-5.1); Protein, Total 6.3 g/dL (5.8-8.1)
[2022-12-08 00:50] LABS: Troponin I 0.015 ng/mL (< 0.028)
[2022-12-08 01:00] LABS: Band 1 % (5-11); CellaVision Operator ID lab.abc; Lymphocytes 19 % (21-51); Monocytes 23 % (0-10); Neutrophil 54 % (42-75); Platelet Adequacy Comment Platelets Normal; RBC Morphology Within Normal Limits; Reactive Lymphocytes 3 % (0-10); Smudge Cells 11.9 %; Total Cell Count 101
[2022-12-08 01:03] LABS: Sodium 113 mmol/L (136-145)
[2022-12-08] MEDS ORDERED: Thiamine HCl 200 MG/2 ML VIAL ONE (01:49)
[2022-12-08] MEDS ORDERED: Potassium Chloride 20 MEQ TAB ONE (01:49)
[2022-12-08] MEDS ORDERED: Ondansetron PF 4 MG/2 ML Vial IVP PRN (02:56)
[2022-12-08] MEDS ORDERED: Sodium Chloride 3% 500 ML IVPB SCH (03:00)
[2022-12-08] MEDS ORDERED: Lorazepam 2 MG/ML VIAL IM PRN (03:01)
[2022-12-08] MEDS ORDERED: Electrolyte Replacement Protocol 1 EACH FS PRN (03:15)
[2022-12-08] MEDS ORDERED: Ipratropium/Albuterol 3 ML NEB NEB PRN (03:29)
[2022-12-08 03:59] LABS: Phosphorus 2.8 mg/dL (2.3-4.7)
[2022-12-08] MEDS ORDERED: Potassium Chloride 20 MEQ/100 ML PREMIX BAG ONE (05:56)
[2022-12-08 06:56] LABS: Anion Gap 14 mmol/L (10-20); BUN (Urea Nitrogen) Less than 4 mg/dL (9.8-20.1); Calc. Creatinine Clearance 0 mL/min (70-130); Calcium 9.1 mg/dL (7.8-10.44); Carbon Dioxide 31 mmol/L (23-31); Chloride 79 mmol/L (98-107); Estimated GFR 98; Glucose 137 mg/dL (83-110); Potassium 2.8 mmol/L (3.5-5.1); Sodium 121 mmol/L (136-145)
[2022-12-08] MEDS ORDERED: Magnesium 2 GM/50 ML(in water) 2 GM in Premix 1 BAG IVPB SCH (08:00)
[2022-12-08] MEDS: Thiamine HCl 200 MG/2 ML VIAL SLOW IVP SCH (08:45)
[2022-12-08] MEDS: Potassium Chloride 20 MEQ TAB PO SCH ×2 (08:46→17:16)
[2022-12-08] MEDS: Folic Acid 1 MG TAB PO SCH (08:46)
[2022-12-08] MEDS: Famotidine 20 MG TAB PO SCH ×2 (08:46→20:40)
[2022-12-08] MEDS: Multivit, Therapeutic 1 TAB PO SCH (09:15)
[2022-12-08] MEDS: Sodium Chloride 0.9% 1,000 ML IV SCH ×2 (09:15→17:17)
[2022-12-08 09:44] VITALS: BMI 17.9
[2022-12-08 11:05] LABS: Anion Gap 15 mmol/L (10-20); BUN (Urea Nitrogen) Less than 4 mg/dL (9.8-20.1); Calc. Creatinine Clearance 68 mL/min (70-130); Calcium 8.9 mg/dL (7.8-10.44); Carbon Dioxide 30 mmol/L (23-31); Chloride 85 mmol/L (98-107); Estimated GFR 98; Glucose 129 mg/dL (83-110); Potassium 3.1 mmol/L (3.5-5.1); Sodium 127 mmol/L (136-145)
[2022-12-08] MEDS: Ipratropium/Albuterol 3 ML NEB NEB SCH ×2 (13:28→18:37)
[2022-12-08 17:23] LABS: Anion Gap 14 mmol/L (10-20); BUN (Urea Nitrogen) 4 mg/dL (9.8-20.1); Calc. Creatinine Clearance 61 mL/min (70-130); Calcium 8.9 mg/dL (7.8-10.44); Carbon Dioxide 30 mmol/L (23-31); Chloride 89 mmol/L (98-107); Estimated GFR 95; Glucose 136 mg/dL (83-110); Potassium 2.9 mmol/L (3.5-5.1); Sodium 130 mmol/L (136-145)
[2022-12-08] MEDS: Lorazepam 1 MG TAB PO PRN ×2 (19:13→23:20)
[2022-12-08] MEDS ORDERED: Potassium Chloride 20 MEQ TAB PO SCH (21:00)
[2022-12-09] MEDS: Ipratropium/Albuterol 3 ML NEB NEB SCH ×4 (02:15→18:23)
[2022-12-09] MEDS: Sodium Chloride 0.9% 1,000 ML IV SCH ×2 (04:15→10:16)
[2022-12-09] MEDS: Thiamine HCl 200 MG/2 ML VIAL SLOW IVP SCH ×2 (04:30→05:45)
[2022-12-09 07:02] LABS: Hematocrit 32.3 % (36.0-47.0); Hemoglobin 10.9 g/dL (12.0-16.0); Manual Diff?? YES; Mean Corpuscular HGB CONC 33.7 g/dL (32.0-36.0); Mean Corpuscular Hemoglobin 29.6 pg (27.0-31.0); Mean Corpuscular Volume 87.8 fl (78.0-98.0); Mean Platelet Volume 10.8 fL (7.4-10.4); Platelet Count 104 10x3/uL (130-400); Red Blood Cell (RBC) Count 3.68 mill/uL (4.20-5.40); White Blood Cell (WBC) Count 4.1 10x3/uL (4.8-10.8)
[2022-12-09 07:38] LABS: Delete Auto Diff?? YES
[2022-12-09 07:58] LABS: Anion Gap 13 mmol/L (10-20); BUN (Urea Nitrogen) 5 mg/dL (9.8-20.1); Calc. Creatinine Clearance 66 mL/min (70-130); Calcium 8.6 mg/dL (7.8-10.44); Carbon Dioxide 27 mmol/L (23-31); Chloride 95 mmol/L (98-107); Estimated GFR 98; Glucose 113 mg/dL (83-110); Potassium 3.4 mmol/L (3.5-5.1); Sodium 132 mmol/L (136-145)
[2022-12-09 08:34] LABS: Prothrombin Time 13.3 sec (12.0-14.7)
[2022-12-09 08:35] LABS: PTT 31.2 sec (22.9-36.1)
[2022-12-09 09:02] LABS: Lymphocytes 41 % (21-51); Monocytes 11 % (0-10); Neutrophil 48 % (42-75)
[2022-12-09] MEDS ORDERED: Potassium Chloride 20 MEQ TAB PO SCH (09:30)
[2022-12-09] MEDS: Multivit, Therapeutic 1 TAB PO SCH (09:59)
[2022-12-09] MEDS: Folic Acid 1 MG TAB PO SCH (09:59)
[2022-12-09] MEDS: Famotidine 20 MG TAB PO SCH ×2 (09:59→21:20)
[2022-12-09] MEDS ORDERED: Azithromycin 250 MG TAB PO SCH (10:30)
[2022-12-09] MEDS ORDERED: predniSONE 20 MG TAB PO SCH (10:30)
[2022-12-09] MEDS: Lorazepam 1 MG TAB PO PRN ×2 (11:24→19:24)
[2022-12-09] MEDS: cefTRIAXone\\ROCEPHIN 1 GM in Sodium Chloride 0.9% 100 ML IVPB SCH (11:50)
[2022-12-09 17:32] LABS: Potassium 4.2 mmol/L (3.5-5.1)
[2022-12-10] MEDS: Lorazepam 1 MG TAB PO PRN ×3 (00:24→21:39)
[2022-12-10] MEDS: Ipratropium/Albuterol 3 ML NEB NEB SCH ×3 (04:19→12:33)
[2022-12-10] MEDS ORDERED: Thiamine HCl 200 MG/2 ML VIAL SLOW IVP SCH ×2 (06:00→18:00)
[2022-12-10 06:07] LABS: Hematocrit 33.4 % (36.0-47.0); Hemoglobin 11.5 g/dL (12.0-16.0); Manual Diff?? YES; Mean Corpuscular HGB CONC 34.4 g/dL (32.0-36.0); Mean Corpuscular Hemoglobin 29.6 pg (27.0-31.0); Mean Corpuscular Volume 86.1 fl (78.0-98.0); Mean Platelet Volume 10.7 fL (7.4-10.4); Platelet Count 198 10x3/uL (130-400); RBC Distribution Width 17.9 % (11.5-14.5); Red Blood Cell (RBC) Count 3.88 mill/uL (4.20-5.40); White Blood Cell (WBC) Count 3.9 10x3/uL (4.8-10.8)
[2022-12-10 06:18] LABS: Delete Auto Diff?? YES
[2022-12-10 06:34] LABS: Anion Gap 15 mmol/L (10-20); BUN (Urea Nitrogen) 10 mg/dL (9.8-20.1); Calc. Creatinine Clearance 66 mL/min (70-130); Calcium 9.8 mg/dL (7.8-10.44); Carbon Dioxide 25 mmol/L (23-31); Chloride 94 mmol/L (98-107); Estimated GFR 98; Glucose 138 mg/dL (83-110); Potassium 3.7 mmol/L (3.5-5.1); Sodium 130 mmol/L (136-145)
[2022-12-10 06:40] LABS: Band 1 % (5-11); CellaVision Operator ID lab.abc; Large Platelets 10.8 % (0-5); Lymphocytes 18 % (21-51); Monocytes 25 % (0-10); Neutrophil 54 % (42-75); Platelet Adequacy Comment Platelets Normal; RBC Morphology Within Normal Limits; Reactive Lymphocytes 3 % (0-10); Smudge Cells 18.6 %; Total Cell Count 102
[2022-12-10] MEDS: Multivit, Therapeutic 1 TAB PO SCH (07:56)
[2022-12-10] MEDS: Folic Acid 1 MG TAB PO SCH (07:56)
[2022-12-10] MEDS: predniSONE 20 MG TAB PO SCH (07:56)
[2022-12-10] MEDS: Azithromycin 250 MG TAB PO SCH (07:57)
[2022-12-10] MEDS: Famotidine 20 MG TAB PO SCH ×2 (07:57→21:38)
[2022-12-10] MEDS ORDERED: Azithromycin 250 MG TAB PO SCH (09:00)
[2022-12-10] MEDS: cefTRIAXone\\ROCEPHIN 1 GM in Sodium Chloride 0.9% 100 ML IVPB SCH (11:02)
[2022-12-10] MEDS: Acetaminophen 325 MG TAB PO PRN (11:07)
[2022-12-10] MEDS ORDERED: Ipratropium/Albuterol 3 ML NEB NEB PRN (12:41)
[2022-12-10] MEDS: Nicotine 14 MG PATCH TD PRN (21:39)
[2022-12-10] MEDS: Thiamine HCl 500 MG, Admixture Fee 1 EACH in Sodium Chloride 0.9% 250 ML 250 ML IVPB SCH (22:12)
[2022-12-11] MEDS ORDERED: Thiamine 100 MG TAB PO SCH ×2 (03:15→09:00)
[2022-12-11] MEDS: Thiamine HCl 500 MG, Admixture Fee 1 EACH in Sodium Chloride 0.9% 250 ML 250 ML IVPB SCH ×3 (05:35→21:39)
[2022-12-11 06:37] LABS: Hematocrit 34.8 % (36.0-47.0); Hemoglobin 11.9 g/dL (12.0-16.0); Manual Diff?? YES; Mean Corpuscular HGB CONC 34.2 g/dL (32.0-36.0); Mean Corpuscular Hemoglobin 29.6 pg (27.0-31.0); Mean Corpuscular Volume 86.6 fl (78.0-98.0); Mean Platelet Volume 10.4 fL (7.4-10.4); Platelet Count 259 10x3/uL (130-400); RBC Distribution Width 18.2 % (11.5-14.5); Red Blood Cell (RBC) Count 4.02 mill/uL (4.20-5.40); White Blood Cell (WBC) Count 4.7 10x3/uL (4.8-10.8)
[2022-12-11 07:05] LABS: Anion Gap 14 mmol/L (10-20); BUN (Urea Nitrogen) 14 mg/dL (9.8-20.1); Calc. Creatinine Clearance 53 mL/min (70-130); Calcium 10.1 mg/dL (7.8-10.44); Carbon Dioxide 28 mmol/L (23-31); Chloride 94 mmol/L (98-107); Estimated GFR 93; Glucose 149 mg/dL (83-110); Potassium 3.3 mmol/L (3.5-5.1); Sodium 133 mmol/L (136-145)
[2022-12-11 07:27] LABS: Delete Auto Diff?? YES
[2022-12-11] MEDS: predniSONE 20 MG TAB PO SCH (08:03)
[2022-12-11] MEDS: Azithromycin 250 MG TAB PO SCH (08:04)
[2022-12-11] MEDS: Folic Acid 1 MG TAB PO SCH (08:04)
[2022-12-11] MEDS: Multivit, Therapeutic 1 TAB PO SCH (08:04)
[2022-12-11] MEDS: Famotidine 20 MG TAB PO SCH ×2 (08:04→20:06)
[2022-12-11 08:15] LABS: Band 2 % (5-11); CellaVision Operator ID lab.dlt; Lymphocytes 30 % (21-51); Monocytes 22 % (0-10); Neutrophil 46 % (42-75); Platelet Adequacy Comment Platelets Normal; Polychromasia SLIGHT = 2-3 cells HPF (0-2); Total Cell Count 100
[2022-12-11] MEDS ORDERED: Potassium Chloride 20 MEQ TAB PO SCH (09:00)
[2022-12-11] MEDS: Nicotine 14 MG PATCH TD PRN (10:45)
[2022-12-11] MEDS: cefTRIAXone\\ROCEPHIN 1 GM in Sodium Chloride 0.9% 100 ML IVPB SCH (11:10)
[2022-12-11] MEDS: Lorazepam 0.5 MG TAB PO PRN ×2 (11:11→20:13)
[2022-12-11] MEDS: Acetaminophen 325 MG TAB PO PRN (21:43)
[2022-12-12] MEDS: Acetaminophen 325 MG TAB PO PRN (01:18)
[2022-12-12] MEDS: Lorazepam 0.5 MG TAB PO PRN ×3 (01:18→22:05)
[2022-12-12] MEDS: Thiamine HCl 500 MG, Admixture Fee 1 EACH in Sodium Chloride 0.9% 250 ML 250 ML IVPB SCH ×3 (05:35→20:17)
[2022-12-12 06:58] LABS: Hematocrit 32.6 % (36.0-47.0); Manual Diff?? YES; Mean Corpuscular HGB CONC 33.7 g/dL (32.0-36.0); Mean Corpuscular Hemoglobin 29.6 pg (27.0-31.0); Mean Corpuscular Volume 87.6 fl (78.0-98.0); Mean Platelet Volume 10.6 fL (7.4-10.4); Platelet Count 281 10x3/uL (130-400); RBC Distribution Width 18.5 % (11.5-14.5); Red Blood Cell (RBC) Count 3.72 mill/uL (4.20-5.40); White Blood Cell (WBC) Count 4.8 10x3/uL (4.8-10.8)
[2022-12-12 07:11] LABS: Delete Auto Diff?? YES
[2022-12-12 07:23] LABS: Anion Gap 14 mmol/L (10-20); BUN (Urea Nitrogen) 20 mg/dL (9.8-20.1); Calc. Creatinine Clearance 54 mL/min (70-130); Calcium 9.7 mg/dL (7.8-10.44); Carbon Dioxide 26 mmol/L (23-31); Chloride 97 mmol/L (98-107); Estimated GFR 93; Glucose 86 mg/dL (83-110); Potassium 3.9 mmol/L (3.5-5.1); Sodium 133 mmol/L (136-145)
[2022-12-12 07:42] LABS: Band 1 % (5-11); CellaVision Operator ID LAB.GE; Large Platelets 5.8 % (0-5); Lymphocytes 46 % (21-51); Monocytes 12 % (0-10); Neutrophil 36 % (42-75); Platelet Adequacy Comment Platelets Normal; Polychromasia SLIGHT = 2-3 cells HPF (0-2); Reactive Lymphocytes 5 % (0-10); Total Cell Count 104
[2022-12-12] MEDS: Famotidine 20 MG TAB PO SCH ×2 (08:19→20:17)
[2022-12-12] MEDS: Multivit, Therapeutic 1 TAB PO SCH (08:19)
[2022-12-12] MEDS: Folic Acid 1 MG TAB PO SCH (08:20)
[2022-12-12] MEDS: predniSONE 20 MG TAB PO SCH (08:20)
[2022-12-12] MEDS: cefTRIAXone\\ROCEPHIN 1 GM in Sodium Chloride 0.9% 100 ML IVPB SCH (11:25)
[2022-12-13] MEDS: Lorazepam 0.5 MG TAB PO PRN ×3 (05:10→20:06)
[2022-12-13] MEDS: Thiamine HCl 500 MG, Admixture Fee 1 EACH in Sodium Chloride 0.9% 250 ML 250 ML IVPB SCH ×3 (05:11→20:45)
[2022-12-13 06:43] LABS: Hematocrit 33.5 % (36.0-47.0); Hemoglobin 11.1 g/dL (12.0-16.0); Manual Diff?? YES; Mean Corpuscular HGB CONC 33.1 g/dL (32.0-36.0); Mean Corpuscular Hemoglobin 29.1 pg (27.0-31.0); Mean Corpuscular Volume 87.7 fl (78.0-98.0); Mean Platelet Volume 10.4 fL (7.4-10.4); Platelet Count 274 10x3/uL (130-400); RBC Distribution Width 18.5 % (11.5-14.5); Red Blood Cell (RBC) Count 3.82 mill/uL (4.20-5.40); White Blood Cell (WBC) Count 4.4 10x3/uL (4.8-10.8)
[2022-12-13 06:47] LABS: Delete Auto Diff?? YES
[2022-12-13 07:06] LABS: Anion Gap 11 mmol/L (10-20); BUN (Urea Nitrogen) 20 mg/dL (9.8-20.1); Calc. Creatinine Clearance 54 mL/min (70-130); Calcium 9.2 mg/dL (7.8-10.44); Carbon Dioxide 29 mmol/L (23-31); Chloride 98 mmol/L (98-107); Estimated GFR 93; Glucose 165 mg/dL (83-110); Potassium 3.7 mmol/L (3.5-5.1); Sodium 134 mmol/L (136-145)
[2022-12-13 07:11] LABS: Band 1 % (5-11); CellaVision Operator ID LAB.GE; Large Platelets 6.1 % (0-5); Lymphocytes 39 % (21-51); Monocytes 14 % (0-10); Myelocyte 1 % (0-0); Neutrophil 44 % (42-75); Platelet Adequacy Comment Platelets Normal; Polychromasia SLIGHT = 2-3 cells HPF (0-2); Total Cell Count 98
[2022-12-13] MEDS: Famotidine 20 MG TAB PO SCH ×2 (08:23→20:06)
[2022-12-13] MEDS: Folic Acid 1 MG TAB PO SCH (08:23)
[2022-12-13] MEDS: predniSONE 20 MG TAB PO SCH (08:23)
[2022-12-13] MEDS: Multivit, Therapeutic 1 TAB PO SCH (08:23)
[2022-12-13] MEDS: cefTRIAXone\\ROCEPHIN 1 GM in Sodium Chloride 0.9% 100 ML IVPB SCH (11:42)
[2022-12-13] MEDS: Acetaminophen 325 MG TAB PO PRN (14:38)
[2022-12-13] MEDS: Melatonin 3 MG TAB PO PRN (20:38)
[2022-12-13] MEDS: Ondansetron ODT 4 MG TAB PO PRN (22:44)
[2022-12-14] MEDS: Lorazepam 0.5 MG TAB PO PRN ×2 (02:25→12:45)
[2022-12-14] MEDS: Thiamine HCl 500 MG, Admixture Fee 1 EACH in Sodium Chloride 0.9% 250 ML 250 ML IVPB SCH ×3 (05:11→22:09)
[2022-12-14 05:44] LABS: #Neutrophils 1.7 thou/uL (1.40-6.50); %Basophils 0.2 % (0.0-1.0); %Eosinophils 0.6 % (0.0-10.0); %Lymphocytes 45.6 % (21.0-51.0); %Monocytes 19.7 % (0.0-10.0); %Neutrophils 32.5 % (42.0-75.0); Hematocrit 32.9 % (36.0-47.0); Hemoglobin 11.1 g/dL (12.0-16.0); Mean Corpuscular HGB CONC 33.7 g/dL (32.0-36.0); Mean Corpuscular Hemoglobin 29.1 pg (27.0-31.0); Mean Corpuscular Volume 86.4 fl (78.0-98.0); Mean Platelet Volume 9.8 fL (7.4-10.4); Platelet Count 292 10x3/uL (130-400); RBC Distribution Width 18.2 % (11.5-14.5); Red Blood Cell (RBC) Count 3.81 mill/uL (4.20-5.40); White Blood Cell (WBC) Count 5.1 10x3/uL (4.8-10.8)
[2022-12-14 06:22] LABS: Anion Gap 12 mmol/L (10-20); BUN (Urea Nitrogen) 19 mg/dL (9.8-20.1); Calc. Creatinine Clearance 59 mL/min (70-130); Calcium 9.2 mg/dL (7.8-10.44); Carbon Dioxide 30 mmol/L (23-31); Chloride 93 mmol/L (98-107); Estimated GFR 95; Glucose 107 mg/dL (83-110); Potassium 3.8 mmol/L (3.5-5.1); Sodium 131 mmol/L (136-145)
[2022-12-14] MEDS: Folic Acid 1 MG TAB PO SCH (08:34)
[2022-12-14] MEDS: Famotidine 20 MG TAB PO SCH ×2 (08:34→20:08)
[2022-12-14] MEDS: Multivit, Therapeutic 1 TAB PO SCH (08:34)
[2022-12-14] MEDS: cefTRIAXone\\ROCEPHIN 1 GM in Sodium Chloride 0.9% 100 ML IVPB SCH (12:41)
[2022-12-14] MEDS: Acetaminophen 325 MG TAB PO PRN (20:07)
[2022-12-14] MEDS: Melatonin 3 MG TAB PO PRN (22:09)
[2022-12-15 06:05] LABS: Hemoglobin 11.2 g/dL (12.0-16.0); Manual Diff?? YES; Mean Corpuscular HGB CONC 32.9 g/dL (32.0-36.0); Mean Corpuscular Hemoglobin 28.8 pg (27.0-31.0); Mean Corpuscular Volume 87.4 fl (78.0-98.0); Mean Platelet Volume 10.3 fL (7.4-10.4); Platelet Count 331 10x3/uL (130-400); RBC Distribution Width 18.5 % (11.5-14.5); Red Blood Cell (RBC) Count 3.89 mill/uL (4.20-5.40); White Blood Cell (WBC) Count 4.6 10x3/uL (4.8-10.8)
[2022-12-15 06:07] LABS: Delete Auto Diff?? YES
[2022-12-15] MEDS: Acetaminophen 325 MG TAB PO PRN (06:17)
[2022-12-15] MEDS: Thiamine HCl 500 MG, Admixture Fee 1 EACH in Sodium Chloride 0.9% 250 ML 250 ML IVPB SCH ×3 (06:19→21:15)
[2022-12-15 06:26] LABS: Anion Gap 14 mmol/L (10-20); BUN (Urea Nitrogen) 18 mg/dL (9.8-20.1); Calc. Creatinine Clearance 59 mL/min (70-130); Calcium 8.9 mg/dL (7.8-10.44); Carbon Dioxide 29 mmol/L (23-31); Chloride 95 mmol/L (98-107); Estimated GFR 95; Glucose 97 mg/dL (83-110); Potassium 4.1 mmol/L (3.5-5.1); Sodium 134 mmol/L (136-145)
[2022-12-15 06:31] LABS: CellaVision Operator ID LAB.CLH1; Hypochromia SLIGHT = 6-15 cells HPF (0-5); Large Platelets 3.8 % (0-5); Lymphocytes 56 % (21-51); Macrocytosis SLIGHT = 6-15 cells HPF (0-5); Monocytes 16 % (0-10); Neutrophil 25 % (42-75); Platelet Adequacy Comment Platelets Normal; Polychromasia MODERATE = 3-4 cells HPF (0-2); Reactive Lymphocytes 3 % (0-10); Target Cells SLIGHT = 2-5 cells HPF (0-1); Total Cell Count 104
[2022-12-15] MEDS: Multivit, Therapeutic 1 TAB PO SCH (09:06)
[2022-12-15] MEDS: Folic Acid 1 MG TAB PO SCH (09:06)
[2022-12-15] MEDS: Famotidine 20 MG TAB PO SCH ×2 (09:06→21:14)
[2022-12-15] MEDS: cefTRIAXone\\ROCEPHIN 1 GM in Sodium Chloride 0.9% 100 ML IVPB SCH (11:25)
[2022-12-15] MEDS: Ondansetron ODT 4 MG TAB PO PRN (14:09)
[2022-12-15] MEDS: Lorazepam 0.5 MG TAB PO PRN (14:13)
[2022-12-16] MEDS: Thiamine HCl 500 MG, Admixture Fee 1 EACH in Sodium Chloride 0.9% 250 ML 250 ML IVPB SCH (05:01)
[2022-12-16 06:58] LABS: Hematocrit 33.1 % (36.0-47.0); Hemoglobin 11.1 g/dL (12.0-16.0); Manual Diff?? YES; Mean Corpuscular HGB CONC 33.5 g/dL (32.0-36.0); Mean Corpuscular Hemoglobin 29.4 pg (27.0-31.0); Mean Corpuscular Volume 87.8 fl (78.0-98.0); Mean Platelet Volume 10.1 fL (7.4-10.4); Platelet Count 339 10x3/uL (130-400); RBC Distribution Width 18.2 % (11.5-14.5); Red Blood Cell (RBC) Count 3.77 mill/uL (4.20-5.40)
[2022-12-16 07:03] LABS: Delete Auto Diff?? YES
[2022-12-16 07:27] LABS: Anion Gap 14 mmol/L (10-20); BUN (Urea Nitrogen) 15 mg/dL (9.8-20.1); Calc. Creatinine Clearance 56 mL/min (70-130); Calcium 9.6 mg/dL (7.8-10.44); Carbon Dioxide 27 mmol/L (23-31); Chloride 95 mmol/L (98-107); Estimated GFR 94; Glucose 105 mg/dL (83-110); Potassium 4.2 mmol/L (3.5-5.1); Sodium 132 mmol/L (136-145)
[2022-12-16 08:01] LABS: Anisocytosis MARKED = >30 cells HPF (0-5); CellaVision Operator ID LAB.NR; Hypochromia SLIGHT = 6-15 cells HPF (0-5); Large Platelets 5.9 % (0-5); Lymphocytes 38 % (21-51); Macrocytosis SLIGHT = 6-15 cells HPF (0-5); Monocytes 20 % (0-10); Neutrophil 42 % (42-75); Platelet Adequacy Comment Platelets Normal; Polychromasia SLIGHT = 2-3 cells HPF (0-2); Smudge Cells 7.9 %; Total Cell Count 101
[2022-12-16] MEDS: Multivit, Therapeutic 1 TAB PO SCH (09:06)
[2022-12-16] MEDS: Famotidine 20 MG TAB PO SCH ×2 (09:07→19:48)
[2022-12-16] MEDS: Folic Acid 1 MG TAB PO SCH (09:07)
[2022-12-16] MEDS: cefTRIAXone\\ROCEPHIN 1 GM in Sodium Chloride 0.9% 100 ML IVPB SCH (13:36)
[2022-12-16] MEDS: Ondansetron ODT 4 MG TAB PO PRN ×2 (16:43→21:26)
[2022-12-16] MEDS: Lorazepam 0.5 MG TAB PO PRN (21:26)
[2022-12-17 04:37] LABS: Hematocrit 34.2 % (36.0-47.0); Hemoglobin 11.6 g/dL (12.0-16.0); Manual Diff?? YES; Mean Corpuscular HGB CONC 33.9 g/dL (32.0-36.0); Mean Corpuscular Hemoglobin 29.7 pg (27.0-31.0); Mean Corpuscular Volume 87.5 fl (78.0-98.0); Mean Platelet Volume 9.9 fL (7.4-10.4); Platelet Count 340 10x3/uL (130-400); RBC Distribution Width 18.3 % (11.5-14.5); Red Blood Cell (RBC) Count 3.91 mill/uL (4.20-5.40)
[2022-12-17 04:54] LABS: Delete Auto Diff?? YES
[2022-12-17 05:04] LABS: Anion Gap 13 mmol/L (10-20); BUN (Urea Nitrogen) 21 mg/dL (9.8-20.1); Calc. Creatinine Clearance 55 mL/min (70-130); Carbon Dioxide 26 mmol/L (23-31); Chloride 95 mmol/L (98-107); Estimated GFR 93; Glucose 94 mg/dL (83-110); Potassium 4.5 mmol/L (3.5-5.1); Sodium 129 mmol/L (136-145)
[2022-12-17 05:18] LABS: CellaVision Operator ID LAB.CLH1; Hypochromia SLIGHT = 6-15 cells HPF (0-5); Lymphocytes 36 % (21-51); Monocytes 23 % (0-10); Neutrophil 39 % (42-75); Platelet Adequacy Comment Platelets Normal; Polychromasia SLIGHT = 2-3 cells HPF (0-2); Reactive Lymphocytes 1 % (0-10); Total Cell Count 99
[2022-12-17] MEDS ORDERED: Thiamine 100 MG TAB PO SCH (09:00)
[2022-12-17] MEDS: Famotidine 20 MG TAB PO SCH (09:30)
[2022-12-17] MEDS: Multivit, Therapeutic 1 TAB PO SCH (09:30)
[2022-12-17] MEDS: Folic Acid 1 MG TAB PO SCH (09:30)
[2022-12-17] MEDS ORDERED: Lisinopril 10 MG TAB PO SCH (10:51)
[2022-12-17] MEDS ORDERED: Calcium Carbonate 500 MG ChewTAB PO PRN (10:52)
[2022-12-17] MEDS ORDERED: traMADol HCl 50 MG TAB PO PRN (10:52)
[2022-12-17] MEDS ORDERED: Lisinopril 20 MG TAB PO SCH (11:00)
[2022-12-17 14:31] LABS: Troponin I Less than 0.010 ng/mL (< 0.028)
[2022-12-17 16:21] VITALS: BP 99/66; TEMP 98.5
[2022-12-18] MEDS ORDERED: Lisinopril 20 MG TAB PO SCH (09:00)
[2022-12-18] MEDS ORDERED: Pantoprazole 40 MG VIAL IVP SCH (09:00)
== END 2022-12-17 15:30 | DRG 640 ==
LOC: ERS 23:23 → ERHOLD 12-08 02:56 → IMCU/EMU 12-08 08:01 → T4-A 12-10 14:29
PROVIDERS: ADMIT Student in an Organized Health Care Education/Training Program; ATTEND Family Medicine
PROC: HZ2ZZZZ Detoxification Services for Substance Abuse Treatment (ICD-10-PCS; principal; 2022-12-08)
DX: E87.1 Hypo-osmolality and hyponatremia (principal); G93.41 Metabolic encephalopathy; J44.1 Chronic obstructive pulmonary disease with (acute) exacerbation; E44.0 Moderate protein-calorie malnutrition; Z68.1 Body mass index [BMI] 19.9 or less, adult; E87.6 Hypokalemia; I10 Essential (primary) hypertension; F10.20 Alcohol dependence, uncomplicated; D64.9 Anemia, unspecified; R74.01 Elevation of levels of liver transaminase levels; F17.210 Nicotine dependence, cigarettes, uncomplicated; R62.7 Adult failure to thrive; Y90.3 Blood alcohol level of 60-79 mg/100 ml; Z88.1 Allergy status to other antibiotic agents; Z88.8 Allergy status to other drugs, medicaments and biological substances; Z79.899 Other long term (current) drug therapy; Z91.199 Patient's noncompliance with other medical treatment and regimen due to unspecified reason; Z90.49 Acquired absence of other specified parts of digestive tract; Z71.41 Alcohol abuse counseling and surveillance of alcoholic; Z71.6 Tobacco abuse counseling
CPT/HCPCS: 36415; 36416; 71045; 80048; 80053; 80307; 83690; 83735; 84100; 84484; 85025; 85610; 85730; 93005; 93010; 94640; 96365; 96366; 96367; 96368; J0696; J3411; J3475; J3480; J3490; J7042; J7050; J7131; J7512; J7620; Q0162

== ENCOUNTER 2023-03-28 09:43 | Emergency (ER) | payer OTHER, MEDICARE | END 2023-03-28 10:13 | disposition home or self-care (01) | LOC: ERS 09:43 | DX: R20.2 Paresthesia of skin (principal); I10 Essential (primary) hypertension; J44.9 Chronic obstructive pulmonary disease, unspecified; F17.210 Nicotine dependence, cigarettes, uncomplicated; Z79.899 Other long term (current) drug therapy | CPT/HCPCS: 99284 ==